=== PATIENT | female | born 1950 | race Caucasian/White ===

== ENCOUNTER 2022-12-11 06:19 | Inpatient (IN) | payer OTHER, SELFPAY ==
[2022-12-11] VITALS (7 sets, daily range): BP systolic 90–166; BP diastolic 35–67; PULSE 46–93; RESP 16–18; TEMP 36–37; O2SAT 91–99; BMI 25.1
--- NOTE | ~2022-12-11 | XR_ITS ---
EXAMINATION: XR CHEST CLINICAL INFORMATION: Recent pneumonia COMPARISON: None available. TECHNIQUE: 2 views of the chest were obtained. FINDINGS: Heart size normal. No infiltrates, effusions or lung masses are seen. Degenerative changes are present in both shoulders as well as the spine. Old healed right-sided rib fractures are seen involving ribs 4 through 6. XR/XR chest 2V IMPRESSION: No acute intrathoracic disease. Old healed right-sided rib fractures.
--- NOTE | 2022-12-11 06:31 | MHC.EDTECH ---
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
[2022-12-11 06:32] LABS: Glucose, Whole Blood 574 mg/dL (60-115)
[2022-12-11] MEDS: 0.9 % Sodium Chloride 1,000 ML 999 ML IV ×2 (07:14→08:52)
--- NOTE | 2022-12-11 07:32 | ED_ITS ---
HPI - General Adult General Chief complaint: Dizziness Stated complaint: Dizziness, Headache, Vomiting Time Seen by Provider: 12/11/22 07:23 Source: patient and family Mode of arrival: ambulatory Limitations: language barrier History of Present Illness HPI narrative: HIstory by daughter. Recent admission and visit to [facility], 1 week out from DKA, pneumonia and UTI now with weakness, dizziness and sugars running over 500. Onset (ago): day(s) Severity: moderate Related Data Allergies Allergy/AdvReac Type Severity Reaction Status Date / Time No Known Allergies Allergy Verified 12/11/22 06:28 Review of Systems Review of Systems: Yes all other systems are reviewed and are negative Constitutional: Constitutional: Reports body ache(s), Reports fatigue and Reports lethargy Psychiatric: Comments: headache Endocrine: Endocrine: Reports fatigue [facility] Social History Social History Alcohol intake: never Smoked in Last 30 Days: No Use of substances other than those prescribed or required for medical reasons: No Advance Directives: No Advance Directives Information Provided: Yes Physical Exam ED Vital Signs: Vital Signs - 24 hr 12/11/22 06:24 12/11/22 10:16 12/11/22 10:19 Temperature 98.1 F 97.1 F Pulse Rate 54 55 50 Respiratory Rate 16 16 16 Blood Pressure 111/61 105/55 L 90/42 L Pulse Oximetry 98 99 91 L Oxygen Delivery Method Room Air Room Air Room Air Oxygen Flow Rate 12/11/22 12:01 Temperature Pulse Rate 46 L Respiratory Rate 16 Blood Pressure 101/35 L Pulse Oximetry Oxygen Delivery Method Nasal Cannula Oxygen Flow Rate 1 BMI result Body Mass Index 25.1 Const Other: frail elderly female Orientation/consciousness: oriented to person and patient oriented x3 Limitations: no limitations HENMT Head: Yes normal to inspection Ears: external ears normal General nose exam: Normal external nose present Mouth: Normal oral and palatal mucosa present and oropharynx normal Throat: Yes posterior oropharynx normal Eyes General: appearance normal, both eyes and all related structures Neck Neck: Yes normal visual inspection Chest Chest palpation & inspection: normal inspection of the chest Resp Auscultation: clear to auscultation bilaterally Cardio Jugular venous distension: no JVD Rate: regular rate Rhythm: regular rhythm Heart sounds: S1 normal heart sound present and S2 normal heart sound present GI Inspection: Yes normal to inspection Palpation (GI): Soft to palpation, nontender and No hepatosplenomegaly present Auscultation: normal bowel sounds General: Yes no CVA tenderness Back/Spine/Pelvis Back: no CVA tenderness Skin Other: old ecchymosis to arms and legs Neuro General: oriented to person and patient oriented x3 Cranial nerves: Yes CN's II-XII intact bilaterally Motor exam (neuro): 5/5 motor strength present throughout Extrem General: Yes normal to inspection Psych Appearance: grossly normal Course Reevaluation(s) Reevaluation #1: Patient with improved sugar and potassium will admit Time: 12:35 Reevaluation #2: I spent 40 minutes of critical care, with interventions, assessments, speaking to patient, consultants, and family. Time: 12:38 Medications Administered Generic Name Dose Route Start Last Admin Trade Name Freq PRN Reason Stop Dose Admin Insulin Human Regular 100 unit in 100 mls @ 5 mls/hr 12/11/22 08:30 12/11/22 11:06 Myxredlin IVCONT 1.87 unit/hr .Q20H DPITI 1.87 mls/hr Titration Protocol 5 UNIT/HR Discontinued Medications Generic Name Dose Route Start Last Admin Trade Name Freq PRN Reason Stop Dose Admin Sodium Chloride 1,000 mls @ 999 mls/hr 12/11/22 07:00 12/11/22 08:42 Ns IV 12/11/22 08:00 Infused .Q1H1M DIPTI Infusion Sodium Chloride 1,000 mls @ 999 mls/hr 12/11/22 07:00 12/11/22 09:48 Ns IV 12/11/22 08:00 Infused .Q1H1M DIPTI Infusion Insulin Human Regular 100 unit in 100 mls @ 5 mls/hr 12/11/22 07:45 12/11/22 08:27 Myxredlin IVCONT Not Given .Q20H DIPTI Protocol Insulin Human Regular 5 unit 12/11/22 07:35 12/11/22 08:27 Insulin Regular, Human 100 Unit/Ml 3 Ml Vial IVPUSH 12/11/22 07:36 5 unit ONCE ONE Administration Medical Decision Making Differential Diagnosis Differential Diagnoses: The differential diagnosis associated with the presentation includes (DKA, hyperosmolar hyperglycemia, pneumonia, UTI were considered) Admission/Observation Consideration of admission/observation: Escalation of care including admission/observation considered (upon arrival this patient with recent DKA and pneumonia was considered for admission) Consult Healthcare Provider Management of the patient was discussed with: Hospitalist (dr Haney) Lab Data MDM Lab Attestation statement: I reviewed the patient's lab results. (hyperkalemia, renal failure, and hyperglucemia were all noted and treated ve nous PH patient not acidotic, bicarbonate low) 12/11/22 08:12 12/11/22 08:12 Labs: Lab Results 12/11/22 12/11/22 12/11/22 Range/Units 06:28 07:58 08:12 WBC 8.6 (4.8-10.8) X10*3/uL RBC 3.14 L (4.20-5.50) X10*6/uL Hgb 9.2 L (12.0-16.0) g/dl Hct 28.9 L (37.0-47.0) % MCV 92.0 (80.0-98.0) fL MCH 29.3 (27.0-33.0) pg MCHC 31.8 (31.0-35.0) g/dl RDW 15.1 (11.0-16.0) % Plt Count 171 (160-400) X10*3/uL MPV 11.3 (9.4-12.3) fL Immature Gran % (Auto) 0.5 H (0.0-0.4) % Neut % (Auto) 75.7 H (45-73) % Lymph % (Auto) 17.2 L (20-40) % [place] % (Auto) 6.4 (2-11) % Eos % (Auto) 0.0 (0-4) % Baso % (Auto) 0.2 (0-2) % Lymph # (Auto) 1.5 (1.2-4.9) X10*3/uL [place] # (Auto) 0.6 (0.1-1.2) X10*3/uL Eos # (Auto) 0.0 (0.0-0.4) X10*3/uL Baso # (Auto) 0.0 (0.0-0.2) X10*3/uL Abs Immat Gran (auto) 0.04 H (0.00-0.03) X10*3/uL Absolute Neuts (auto) 6.5 (2.0-8.3) x10*3/uL Absolute Nucleated RBC 0.000 (0.0-0.012) X10*3/uL Nucleated RBC % (auto) 0.0 (0.0-0.2) /100WBC VBG pH (7.32-7.43) VBG pCO2 mmHg VBG pO2 mmHg VBG HCO3 (22-26) mmol/L VBG O2 Saturation % VBG Base Excess mmol/L Sodium (135-145) mmol/L Potassium (3.3-5.1) mmol/L Chloride (96-108) mmol/L Carbon Dioxide (22-29) mmol/L Anion Gap (12-20) BUN (9-16) mg/dL Creatinine (0.5-1.4) mg/dL Estim Creat Clear Calc Estimated GFR POC Glucose 574 H* (60-115) mg/dL Random Glucose (60-115) mg/dL Calcium (8.4-10.2) mg/dL Magnesium (1.6-2.6) mg/dL Total Bilirubin (0.0-1.0) mg/dL AST (5-31) U/L ALT (0-31) U/L Alkaline Phosphatase (39-117) U/L Total Protein (6.5-8.0) g/dL Albumin (3.5-5.0) g/dL Beta-Hydroxybutyrate (0.02-0.27) mmol/L COVID-19 (RUDY) Negative (Negative) COVID-19 Clin Com See Note 12/11/22 12/11/22 12/11/22 Range/Units 08:12 08:16 08:53 WBC (4.8-10.8) X10*3/uL RBC (4.20-5.50) X10*6/uL Hgb (12.0-16.0) g/dl Hct (37.0-47.0) % MCV (80.0-98.0) fL MCH (27.0-33.0) pg MCHC (31.0-35.0) g/dl RDW (11.0-16.0) % Plt Count (160-400) X10*3/uL MPV (9.4-12.3) fL Immature Gran % (Auto) (0.0-0.4) % Neut % (Auto) (45-73) % Lymph % (Auto) (20-40) % [place] % (Auto) (2-11) % Eos % (Auto) (0-4) % Baso % (Auto) (0-2) % Lymph # (Auto) (1.2-4.9) X10*3/uL [place] # (Auto) (0.1-1.2) X10*3/uL Eos # (Auto) (0.0-0.4) X10*3/uL Baso # (Auto) (0.0-0.2) X10*3/uL Abs Immat Gran (auto) (0.00-0.03) X10*3/uL Absolute Neuts (auto) (2.0-8.3) x10*3/uL Absolute Nucleated RBC (0.0-0.012) X10*3/uL Nucleated RBC % (auto) (0.0-0.2) /100WBC VBG pH 7.39 (7.32-7.43) VBG pCO2 30 mmHg VBG pO2 37 mmHg VBG HCO3 19 L (22-26) mmol/L VBG O2 Saturation 60.0 % VBG Base Excess -4.7 mmol/L Sodium 131 L (135-145) mmol/L Potassium 7.1 H* (3.3-5.1) mmol/L Chloride 101 (96-108) mmol/L Carbon Dioxide 20 L (22-29) mmol/L Anion Gap 17 (12-20) BUN 74 H (9-16) mg/dL Creatinine 3.34 H (0.5-1.4) mg/dL Estim Creat Clear Calc 10.8 Estimated GFR 13 POC Glucose 481 H* (60-115) mg/dL Random Glucose 587 H* (60-115) mg/dL Calcium 9.0 (8.4-10.2) mg/dL Magnesium 2.2 (1.6-2.6) mg/dL Total Bilirubin 0.3 (0.0-1.0) mg/dL AST 173 H (5-31) U/L ALT 124 H (0-31) U/L Alkaline Phosphatase 140 H (39-117) U/L Total Protein 7.4 (6.5-8.0) g/dL Albumin 3.5 (3.5-5.0) g/dL Beta-Hydroxybutyrate 0.21 (0.02-0.27) mmol/L COVID-19 (RUDY) (Negative) COVID-19 Clin Com 12/11/22 12/11/22 12/11/22 Range/Units 10:18 10:39 10:58 WBC (4.8-10.8) X10*3/uL RBC (4.20-5.50) X10*6/uL Hgb (12.0-16.0) g/dl Hct (37.0-47.0) % MCV (80.0-98.0) fL MCH (27.0-33.0) pg MCHC (31.0-35.0) g/dl RDW (11.0-16.0) % Plt Count (160-400) X10*3/uL MPV (9.4-12.3) fL Immature Gran % (Auto) (0.0-0.4) % Neut % (Auto) (45-73) % Lymph % (Auto) (20-40) % [place] % (Auto) (2-11) % Eos % (Auto) (0-4) % Baso % (Auto) (0-2) % Lymph # (Auto) (1.2-4.9) X10*3/uL [place] # (Auto) (0.1-1.2) X10*3/uL Eos # (Auto) (0.0-0.4) X10*3/uL Baso # (Auto) (0.0-0.2) X10*3/uL Abs Immat Gran (auto) (0.00-0.03) X10*3/uL Absolute Neuts (auto) (2.0-8.3) x10*3/uL Absolute Nucleated RBC (0.0-0.012) X10*3/uL Nucleated RBC % (auto) (0.0-0.2) /100WBC VBG pH (7.32-7.43) VBG pCO2 mmHg VBG pO2 mmHg VBG HCO3 (22-26) mmol/L VBG O2 Saturation % VBG Base Excess mmol/L Sodium 140 (135-145) mmol/L Potassium 5.8 H (3.3-5.1) mmol/L Chloride 109 H (96-108) mmol/L Carbon Dioxide 22 (22-29) mmol/L Anion Gap 15 (12-20) BUN 69 H (9-16) mg/dL Creatinine 3.09 H (0.5-1.4) mg/dL Estim Creat Clear Calc 11.6 Estimated GFR 15 POC Glucose 285 H 242 H (60-115) mg/dL Random Glucose 285 H (60-115) mg/dL Calcium 8.9 (8.4-10.2) mg/dL Magnesium (1.6-2.6) mg/dL Total Bilirubin (0.0-1.0) mg/dL AST (5-31) U/L ALT (0-31) U/L Alkaline Phosphatase (39-117) U/L Total Protein (6.5-8.0) g/dL Albumin (3.5-5.0) g/dL Beta-Hydroxybutyrate (0.02-0.27) mmol/L COVID-19 (RUDY) (Negative) COVID-19 Clin Com 12/11/22 Range/Units 12:00 WBC (4.8-10.8) X10*3/uL RBC (4.20-5.50) X10*6/uL Hgb (12.0-16.0) g/dl Hct (37.0-47.0) % MCV (80.0-98.0) fL MCH (27.0-33.0) pg MCHC (31.0-35.0) g/dl RDW (11.0-16.0) % Plt Count (160-400) X10*3/uL MPV (9.4-12.3) fL Immature Gran % (Auto) (0.0-0.4) % Neut % (Auto) (45-73) % Lymph % (Auto) (20-40) % [place] % (Auto) (2-11) % Eos % (Auto) (0-4) % Baso % (Auto) (0-2) % Lymph # (Auto) (1.2-4.9) X10*3/uL [place] # (Auto) (0.1-1.2) X10*3/uL Eos # (Auto) (0.0-0.4) X10*3/uL Baso # (Auto) (0.0-0.2) X10*3/uL Abs Immat Gran (auto) (0.00-0.03) X10*3/uL Absolute Neuts (auto) (2.0-8.3) x10*3/uL Absolute Nucleated RBC (0.0-0.012) X10*3/uL Nucleated RBC % (auto) (0.0-0.2) /100WBC VBG pH (7.32-7.43) VBG pCO2 mmHg VBG pO2 mmHg VBG HCO3 (22-26) mmol/L VBG O2 Saturation % VBG Base Excess mmol/L Sodium (135-145) mmol/L Potassium (3.3-5.1) mmol/L Chloride (96-108) mmol/L Carbon Dioxide (22-29) mmol/L Anion Gap (12-20) BUN (9-16) mg/dL Creatinine (0.5-1.4) mg/dL Estim Creat Clear Calc Estimated GFR POC Glucose 205 H (60-115) mg/dL Random Glucose (60-115) mg/dL Calcium (8.4-10.2) mg/dL Magnesium (1.6-2.6) mg/dL Total Bilirubin (0.0-1.0) mg/dL AST (5-31) U/L ALT (0-31) U/L Alkaline Phosphatase (39-117) U/L Total Protein (6.5-8.0) g/dL Albumin (3.5-5.0) g/dL Beta-Hydroxybutyrate (0.02-0.27) mmol/L COVID-19 (RUDY) (Negative) COVID-19 Clin Com Independent Interpretation I performed an independent interpretation of an: EKG (sinus 50, no peaked twaves consistent hyperkalemia) and Plain X-Ray (CXR no pneumonia) Independent Historian Clinical information obtained from an independent historian. History obtained from or confirmed by: Other (daughter) External Record Review External record reviewed: Other (discharge summary from [facility]) Chronic Conditions Patient?s care impacted by: Diabetes, Hypertension and Other (renal insufficiency) Discharge Plan Discharge Clinical Impression: Acute hyperglycemia, Acute renal failure, Acute hyperkalemia Patient Disposition: Admitted As Inpatient
[2022-12-11 08:16] LABS: COVID-19 Test Negative (Negative); IDNOW Serial# BCCEAD1C
[2022-12-11 08:19] LABS: MANUAL DIFF FLAG NO
[2022-12-11 08:20] LABS: Venous Blood Gas Refer to POC result
[2022-12-11 08:21] LABS: Basophils Percent Auto 0.2 % (0-2); Hematocrit 28.9 % (37.0-47.0); Hemoglobin 9.2 g/dl (12.0-16.0); Imm Gran Abs Auto 0.04 X10*3/uL (0.00-0.03); Imm Gran Pct Auto 0.5 % (0.0-0.4); Lymphocytes Absolute Auto 1.5 X10*3/uL (1.2-4.9); Lymphocytes Percent Auto 17.2 % (20-40); Mean Corpuscular HGB Conc 31.8 g/dl (31.0-35.0); Mean Corpuscular Hemoglobin 29.3 pg (27.0-33.0); Mean Platelet Volume 11.3 fL (9.4-12.3); Monocytes Absolute Auto 0.6 X10*3/uL (0.1-1.2); Monocytes Percent Auto 6.4 % (2-11); Neutrophils Absolute Auto 6.5 x10*3/uL (2.0-8.3); Neutrophils Percent Auto 75.7 % (45-73); Platelet Count 171 X10*3/uL (160-400); Red Blood Count 3.14 X10*6/uL (4.20-5.50); Red Cell Distribution Width 15.1 % (11.0-16.0); White Blood Count 8.6 X10*3/uL (4.8-10.8)
[2022-12-11 08:23] LABS: VBG Base Excess -4.7 mmol/L; VBG HCO3 19 mmol/L (22-26); VBG pCO2 30 mmHg; VBG pH 7.39 (7.32-7.43); VBG pO2 37 mmHg
[2022-12-11] MEDS: Insulin Regular, Human 100 UNIT/ML 3 ML VIAL IVPUSH (08:27)
[2022-12-11 08:37] LABS: Beta-Hydroxybutyrate 0.21 mmol/L (0.02-0.27)
[2022-12-11] MEDS: Insulin Regular/NS 100 UNIT/100 ML PLAST..BAG IVCONT (08:37)
--- NOTE | 2022-12-11 08:40 | ECG_ITS ---
Test Reason : HYPERKALEMIA Blood Pressure : / mmHG Vent. Rate : 050 BPM Atrial Rate : 000 BPM P-R Int : 000 ms QRS Dur : 074 ms QT Int : 498 ms P-R-T Axes : 000 013 047 degrees QTc Int : 454 ms Junctional rhythm Abnormal ECG No previous ECGs available Referred By: Abdias Henley Electronically Signed By:Tam Vasquez
[2022-12-11 08:42] LABS: Alanine Aminotransferase 124 U/L (0-31); Albumin Level 3.5 g/dL (3.5-5.0); Alkaline Phosphatase 140 U/L (39-117); Anion Gap 17 (12-20); Aspartate Amino Transferase 173 U/L (5-31); Bilirubin Total 0.3 mg/dL (0.0-1.0); Blood Urea Nitrogen 74 mg/dL (9-16); Carbon Dioxide 20 mmol/L (22-29); Chloride 101 mmol/L (96-108); Creatinine Clr Calc Pharmacy 10.8; Estimated Glomerular Filt Rate 13; Glucose Random 587 mg/dL (60-115); Magnesium 2.2 mg/dL (1.6-2.6); Potassium 7.1 mmol/L (3.3-5.1); Sodium 131 mmol/L (135-145); Total Protein 7.4 g/dL (6.5-8.0)
[2022-12-11 08:56] LABS: Glucose, Whole Blood 481 mg/dL (60-115)
[2022-12-11 10:26] LABS: Glucose, Whole Blood 285 mg/dL (60-115)
--- NOTE | 2022-12-11 10:33 | PC.NURSE ---
Dr rodriguez aware of drop in blood glucose. Per MD keep pt on 1.25u/hr of insulin until she is transitioned to SC insulin.
--- NOTE | 2022-12-11 10:36 | PC.NURSE ---
O2 sat consistent around 88-91%, placed on 2L NC. repositioned for comfort, head elevated.
[2022-12-11 11:01] LABS: Anion Gap 15 (12-20); Blood Urea Nitrogen 69 mg/dL (9-16); Calcium 8.9 mg/dL (8.4-10.2); Carbon Dioxide 22 mmol/L (22-29); Chloride 109 mmol/L (96-108); Creatinine Clr Calc Pharmacy 11.6; Estimated Glomerular Filt Rate 15; Glucose Random 285 mg/dL (60-115); Potassium 5.8 mmol/L (3.3-5.1); Sodium 140 mmol/L (135-145)
[2022-12-11 11:02] LABS: Glucose, Whole Blood 242 mg/dL (60-115)
[2022-12-11 12:06] LABS: Glucose, Whole Blood 205 mg/dL (60-115)
--- NOTE | 2022-12-11 12:09 | PC.NURSE ---
Per Dr Henley continue IV insulin at current rate, will advance to SC. do not titrate at this time.
--- NOTE | 2022-12-11 12:46 | PHA.MEDREC ---
Pharmacy Consult ? Medication Reconciliation Pharmacy has completed the medication reconciliation. Patients daughters were at bedside
[2022-12-11] MEDS: Insulin Glargine,Hum.rec.anlog 100 UNIT/ML 10 ML VIAL 10 UNIT SUBCUT (12:49)
[2022-12-11] MEDS: Heparin Sodium,Porcine 5,000 UNIT/ML VIAL 5000 UNIT SUBCUT (15:14)
--- NOTE | 2022-12-11 15:35 | PM.EVENT ---
Event Note Date of Service: 12/11/22 Event Note: Addendum to history and physical by the advanced practice provider, Chau BATISTA I interviewed and examined the patient. I discussed their presentation and management with the SONU. 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 Pt on verapamil. Plan admit to [facility], give basal/bolus inslin, hold MTF given ILYA, give IV fluid hydration + Lokelma, recheck BMP in AM, hold verapail + consult Cardiology. Time Spent With Patient Time: Total time managing care of this patient today ____ minutes.
[2022-12-11 15:37] LABS: Appearance Urine Clear; Color Urine Yellow; Glucose Urine UA 250 mg/dL (Negative); Leukocyte Esterase Urine Negative (Negative); Nitrite Urine Negative (Negative); PH 5.5 (5.0-9.0); Specific Gravity - Urine 1.015 (1.005-1.025); UMIC TRIGGER UACC YES; Urine Blood Negative (Negative); Urine Ketones Negative (Negative); Urine Protein 30 (1+) mg/dL (Neg-Trace)
--- NOTE | 2022-12-11 15:46 | PM.IMHP ---
History of Present Illness Date of Service: 12/11/22 Attending physician on admission: Ileana Avila Chief Complaint: n/v, hyperglycemia 72-year-old female with history of CKD, hypertension, hyperlipidemia, history of CVA with sequela left-sided hemiparesis, insulin-dependent type 2 diabetes, nonproliferative diabetic retinopathy, CHANEL noncompliant with CPAP, and osteopenia presented to the ED earlier today with her daughter, Kim, for evaluation of hyperglycemia, nausea, and vomiting. Per the patient's daughter who provides most of the history, the patient was recently admitted at [facility] for hyperosmolar hyperglycemic state, hemoglobin A1c found to be 12.1% treated with insulin drip and transitioned to an discharged on Lantus 10 units and NovoLog on sliding scale. While admitted, she was also found to have UTI and community-acquired pneumonia and was discharged with cefpodoxime and azithromycin. According to her daughter, the patient is under the care of the patient's granddaughter during the day and has been compliant with diabetic diet as well as metformin but it is not clear if the patient has been taking insulin as she was discharged on. Yesterday, the patient began feeling generally unwell and was found lying in bed nauseous and did vomit early this morning. Last night glucose was 480 and her daughter reports they brought her to [facility] ED but the patient was not seen so they left. This morning the patient was feeling worse and glucose was around 500 so they presented to the ED. On arrival, vital stable the patient did develop bradycardia in the low 40s with EKG showing junctional rhythm, no T-wave abnormality. Upon questioning, the patient reports that the patient has some cardiac arrhythmia but she is unsure of the type as it was diagnosed in [place] though she does take ?medication? for this. There is no leukocytosis. She has a stable normocytic anemia, consistent with baseline. Initial creatinine 3.34, BUN 74, sodium 131, potassium 7.1, CO2 20, anion gap closed at 17, glucose 587. Beta hydroxybutyrate within normal limits. VBG with normal ph. Patient started insulin drip per protocol, and given 2 L IV NS. Chemistries were repeated with improvement in sodium to 140, potassium 5.8, chloride 109, BUN 69, creatinine 3.09, glucose 285. Patient was given 10 units Lantus and weaned from insulin drip. Glucose on admission is 205. Of note, on discharge from [facility] creat was 2.9, but baseline on appears to be around 1.9). UA with +glucose, 1+ protein, otherwise unremarkable. . Review of Systems Review of Systems: General: No fevers, malaise, unintentional weight loss HEENT: No blurred vision, diplopia. Cardiovascular: No chest pain, palpitations, or leg edema Respiratory: No shortness of breath, wheezing, cough GI: +n/v. No abdominal pain, diarrhea, constipation, melena, hematochezia : No dysuria, hematuria, increased urinary frequency, decreased urinary output MSK: No myalgia, +back pain Neuro: No headaches, weakness, paresthesias Skin: No rashes or lesions [facility] Medical History CKD (chronic kidney disease), stage III Hemiparesis affecting left side as late effect of cerebrovascular accident History of CVA (cerebrovascular accident) Hyperlipidemia Hyperosmolar hyperglycemic state (HHS) Hypertension Insulin dependent type 2 diabetes mellitus Nonproliferative diabetic retinopathy CHANEL (obstructive sleep apnea) Osteopenia Social History Alcohol intake: never Smoked in Last 30 Days: No Use of substances other than those prescribed or required for medical reasons: No Advance Directives: No Advance Directives Information Provided: Yes Meds Allergies Allergy/AdvReac Type Severity Reaction Status Date / Time No Known Allergies Allergy Verified 12/11/22 06:28 Active Medications: Current Medications Acetaminophen (Acetaminophen 325 Mg Tablet) 650 mg PO Q6H PRN PRN Reason: Pain, Mild (Pain Scale 1-3) Aspirin (Aspirin Enteric Coated 81 Mg Tablet.Dr) 81 mg PO DAILY DIPTI Atorvastatin Calcium (Atorvastatin Calcium 20 Mg Tablet) 20 mg PO DAILY DIPTI Cefuroxime Axetil (Cefuroxime Axetil 500 Mg Tablet) 500 mg PO BID [facility] Dextrose (Dextrose 50 % 25 Gm/50 Ml Syringe) 25 gm IVPUSH Q15M PRN; Protocol PRN Reason: per Hypoglycemia Standing Ord. Docusate Sodium (Docusate Sodium 100 Mg Capsule) 100 mg PO DAILY PRN PRN Reason: Constipation Furosemide (Furosemide 20 Mg Tablet) 20 mg PO DAILY [facility]; Protocol Glucose (Glucose Gel 15 Gm Gel..Gram.) 15 gm PO Q15M PRN; Protocol PRN Reason: per Hypoglycemia Standing Ord. Heparin Sodium (Porcine) (Heparin Sodium,Porcine 5,000 Unit/Ml Vial) 5,000 unit SUBCUT Q12H [facility] Last Admin: 12/11/22 15:14 Dose: 5,000 unit Insulin Glargine (Insulin Glargine,Hum.Rec.Anlog 100 Unit/Ml 10 Ml Vial) 10 unit SUBCUT DAILY [facility] Insulin Human Lispro (Insulin Lispro 100 Unit/Ml 3 Ml Vial) 0 unit SUBCUT QIDACHS [facility]; Protocol Ondansetron HCl (Ondansetron Hcl 4 Mg/2 Ml Vial) 4 mg IVPUSH Q8H PRN PRN Reason: Nausea and Vomiting Pharmacy Consult (Consult Rx Perform Med Rec) 1 each MISCELLANE ONCE PRN PRN Reason: Consult order Sodium Chloride (0.9 % Sodium Chloride Flush 3 Ml Syringe) 3 ml IVFLUSH QSHIFT [facility] Last Admin: 12/11/22 15:17 Dose: Not Given Verapamil HCl (Verapamil Hcl Sr 240 Mg Tablet.Er) 240 mg PO DAILY [facility]; Protocol Home Medications Medication Instructions Recorded Confirmed Last Taken Type aspirin 81 mg tablet,delayed 81 mg PO DAILY 12/11/22 12/11/22 Unknown History release atorvastatin 20 mg tablet 20 mg PO DAILY 12/11/22 12/11/22 Unknown History cefpodoxime 200 mg tablet 200 mg PO Q12H 12/11/22 12/11/22 Unknown History furosemide 20 mg tablet 20 mg PO DAILY 12/11/22 12/11/22 Unknown History insulin aspart U-100 100 unit/mL 5 unit subcut TID 12/11/22 12/11/22 Unknown History (3 mL) subcutaneous pen (Novolog FlexPen U-100 Insulin aspart) insulin glargine 100 unit/mL (3 10 unit subcut DAILY 12/11/22 12/11/22 Unknown History mL) subcutaneous pen (Lantus Solostar U-100 Insulin) losartan 25 mg tablet 25 mg PO DAILY 12/11/22 12/11/22 Unknown History metformin 500 mg tablet,extended 500 mg PO DAILY 12/11/22 12/11/22 Unknown History release 24 hr verapamil 240 mg 24 hr 240 mg PO DAILY 12/11/22 12/11/22 Unknown History capsule,extended release Physical Exam Vital Signs and Narrative: Vital Signs: Last Vital Signs Temp 97.1 F 12/11/22 10:16 Pulse 46 L 12/11/22 12:01 Resp 16 12/11/22 12:01 BP 101/35 L 12/11/22 12:01 Pulse Ox 91 L 12/11/22 10:19 O2 Del Method Nasal Cannula 12/11/22 12:01 O2 Flow Rate 1 12/11/22 12:01 BMI result Body Mass Index 25.1 Constitutional - Awake and Alert, No apparent distress Eyes - PERRLA, EOMI Cardiovascular - S1S2, RRR, No edema Respiratory - Normal lung expansion, Normal respiratory effort, No respiratory distress, CTA bilaterally Gastrointestinal - NT / ND; +BS; No rebound or guarding - No CVA tenderness Extremities - no calf tenderness bilaterally, no swelling Skin - Warm/Dry Neurological - Alert & oriented x3 Psychological - Appropriate affect Results Labs 12/11/22 08:12 12/11/22 10:39 Labs: Laboratory Results - last 24 hr 12/11/22 12/11/22 12/11/22 06:28 07:58 08:12 MCV 92.0 MCH 29.3 MCHC 31.8 RDW 15.1 Plt Count 171 MPV 11.3 Immature Gran % (Auto) 0.5 H Neut % (Auto) 75.7 H Lymph % (Auto) 17.2 L [place] % (Auto) 6.4 Eos % (Auto) 0.0 Baso % (Auto) 0.2 Lymph # (Auto) 1.5 [place] # (Auto) 0.6 Eos # (Auto) 0.0 Baso # (Auto) 0.0 Abs Immat Gran (auto) 0.04 H Absolute Neuts (auto) 6.5 Absolute Nucleated RBC 0.000 Nucleated RBC % (auto) 0.0 VBG pH VBG pCO2 VBG pO2 VBG HCO3 VBG O2 Saturation VBG Base Excess Anion Gap Estim Creat Clear Calc Estimated GFR POC Glucose 574 H* Random Glucose Calcium Magnesium Total Bilirubin AST ALT Alkaline Phosphatase Total Protein Albumin Beta-Hydroxybutyrate Urine Color Urine Appearance Urine pH Ur Specific [place] Urine Protein Urine Glucose (UA) Urine Ketones Urine Blood Urine Nitrite Ur Leukocyte Esterase COVID-19 (RUDY) Negative COVID-19 Clin Com See Note 12/11/22 12/11/22 12/11/22 08:12 08:16 08:53 MCV MCH MCHC RDW Plt Count MPV Immature Gran % (Auto) Neut % (Auto) Lymph % (Auto) [place] % (Auto) Eos % (Auto) Baso % (Auto) Lymph # (Auto) [place] # (Auto) Eos # (Auto) Baso # (Auto) Abs Immat Gran (auto) Absolute Neuts (auto) Absolute Nucleated RBC Nucleated RBC % (auto) VBG pH 7.39 VBG pCO2 30 VBG pO2 37 VBG HCO3 19 L VBG O2 Saturation 60.0 VBG Base Excess -4.7 Anion Gap 17 Estim Creat Clear Calc 10.8 Estimated GFR 13 POC Glucose 481 H* Random Glucose 587 H* Calcium 9.0 Magnesium 2.2 Total Bilirubin 0.3 AST 173 H ALT 124 H Alkaline Phosphatase 140 H Total Protein 7.4 Albumin 3.5 Beta-Hydroxybutyrate 0.21 Urine Color Urine Appearance Urine pH Ur Specific [place] Urine Protein Urine Glucose (UA) Urine Ketones Urine Blood Urine Nitrite Ur Leukocyte Esterase COVID-19 (RUDY) COVID-hCentive 12/11/22 12/11/22 12/11/22 10:18 10:39 10:58 MCV MCH MCHC RDW Plt Count MPV Immature Gran % (Auto) Neut % (Auto) Lymph % (Auto) [place] % (Auto) Eos % (Auto) Baso % (Auto) Lymph # (Auto) [place] # (Auto) Eos # (Auto) Baso # (Auto) Abs Immat Gran (auto) Absolute Neuts (auto) Absolute Nucleated RBC Nucleated RBC % (auto) VBG pH VBG pCO2 VBG pO2 VBG HCO3 VBG O2 Saturation VBG Base Excess Anion Gap 15 Estim Creat Clear Calc 11.6 Estimated GFR 15 POC Glucose 285 H 242 H Random Glucose 285 H Calcium 8.9 Magnesium Total Bilirubin AST ALT Alkaline Phosphatase Total Protein Albumin Beta-Hydroxybutyrate Urine Color Urine Appearance Urine pH Ur Specific [place] Urine Protein Urine Glucose (UA) Urine Ketones Urine Blood Urine Nitrite Ur Leukocyte Esterase COVID-19 (RUDY) COVID-hCentive 12/11/22 12/11/22 12:00 15:26 MCV MCH MCHC RDW Plt Count MPV Immature Gran % (Auto) Neut % (Auto) Lymph % (Auto) [place] % (Auto) Eos % (Auto) Baso % (Auto) Lymph # (Auto) [place] # (Auto) Eos # (Auto) Baso # (Auto) Abs Immat Gran (auto) Absolute Neuts (auto) Absolute Nucleated RBC Nucleated RBC % (auto) VBG pH VBG pCO2 VBG pO2 VBG HCO3 VBG O2 Saturation VBG Base Excess Anion Gap Estim Creat Clear Calc Estimated GFR POC Glucose 205 H Random Glucose Calcium Magnesium Total Bilirubin AST ALT Alkaline Phosphatase Total Protein Albumin Beta-Hydroxybutyrate Urine Color Yellow Urine Appearance Clear Urine pH 5.5 Ur Specific [place] 1.015 Urine Protein 30 (1+) H Urine Glucose (UA) 250 H Urine Ketones Negative Urine Blood Negative Urine Nitrite Negative Ur Leukocyte Esterase Negative COVID-19 (RUDY) COVID-19 Clin Com Imaging Radiologist's Impressions: Impressions Chest X-Ray 12/11/22 08:23 IMPRESSION: No acute intrathoracic disease. Old healed right-sided rib fractures. Assessment and Plan (1) Hyperosmolar hyperglycemic state (HHS): Status: Acute (2) Acute hyperkalemia: Status: Acute (3) Acute renal failure: Status: Acute Plan 72-year-old female with history of CKD, hypertension, hyperlipidemia, history of CVA with sequela left-sided hemiparesis, insulin-dependent type 2 diabetes, nonproliferative diabetic retinopathy, CHANEL noncompliant with CPAP, and osteopenia admitted for HHS with ILYA and hyperkalemia. # hyperosmolar hyperglycemic state -likely r/t medication noncompliance for T2Dm management -Hgb A1c 12.1% with recent d/c from [facility] for HHS on 12/03 -Glucose on arrival >560. No acidosis on VBG, AG closed. -Weaned from insulin drip and given lantus 10 untis -Continue lantus 10units daily -Humalog on SSI -Diabetic diet -POC glucose -hold metformin #Acute kidney Injury- pre renal -Baseline CKD stage 3 vs 4 at baseline -likely related to dehydration from hyperglycemia/HHS -Creat 3.09, baseline around 1.9 -Continue IV NS -Avoid nephrotoxins -Follow BMP #Acute hyperkalemia -r/t above -On arrival 7.1, improved to 5.8 with IV insulin and IVF. No EKG changes -Give lokelma 10mg -Hold losartan -Follow BMP -Monitor on telemetry #Junctional rhythm with bradycardia -HR in 40s on exam, now 80 -Vague cardiac history diagnosed in [place], diagnosis unclear -Hold verapamil -monitor on telemetry -cardiac consult # pseudo hyponatremia-resolved -related to hyperglycemia # hypertension -hold verapamil and losartan due to above # CHANEL -not on CPAP # UTI -diagnosed at [facility], urine culture appears contaminated -complete additional 4 doses cefuroxime then discontinue DVT prophylaxis-heparin Full code Patient requires inpatient stay at least 2 midnights for management of HHS weaned from insulin drip with acute kidney injury and hyperkalemia requiring IV fluid resuscitation, close monitoring of electrolytes and renal function as well as cardiac monitoring Time Spent With Patient Time: Total time managing care of this patient today ____ minutes. Quality Stroke Does the patient have a stroke diagnosis?: No VTE Prior VTE?: No VTE Risk Level:: Medical - moderate - high VTE Device Contraindication: Treatment Not Indicated VTE Drug Contraindication: N/A - Med Ordered
[2022-12-11 15:53] LABS: Bacteria Urine None Seen (None Seen); Hyaline Casts Urine 0-2 /LPF (0-2); RBC Urine 0-2 /HPF (0-2); Squamous Epithelial Cell Urine 0-2 /HPF (0-2); WBC Urine 0-5 /HPF (0-5)
--- NOTE | 2022-12-11 16:31 | PC.NURSE ---
Report to PHOENIX Wheatley
[2022-12-11 16:48] LABS: Glucose, Whole Blood 262 mg/dL (60-115)
[2022-12-11] MEDS: Sodium Zirconium Cyclosilicate 10 GM POWD.PACK PO (16:54)
[2022-12-11] MEDS: Insulin Lispro 100 UNIT/ML 3 ML VIAL SUBCUT (16:55)
[2022-12-11] MEDS: 0.9 % Sodium Chloride 1,000 ML 100 ML IVCONT (16:57)
[2022-12-11 17:36] LABS: Glucose, Whole Blood 213 mg/dL (60-115)
[2022-12-11 20:17] LABS: Glucose, Whole Blood 71 mg/dL (60-115)
[2022-12-11 22:51] LABS: Carbon Dioxide 21 mmol/L (22-29)
[2022-12-11 22:59] LABS: Blood Urea Nitrogen 66 mg/dL (9-16); Calcium 9.6 mg/dL (8.4-10.2); Chloride 110 mmol/L (96-108); Creatinine Clr Calc Pharmacy 13.6; Estimated Glomerular Filt Rate 18; Glucose Random 135 mg/dL (60-115); Potassium 4.8 mmol/L (3.3-5.1); Sodium 143 mmol/L (135-145)
[2022-12-12 01:12] LABS: Glucose, Whole Blood 162 mg/dL (60-115)
[2022-12-12] MEDS: Heparin Sodium,Porcine 5,000 UNIT/ML VIAL 5000 UNIT SUBCUT ×2 (02:19→14:15)
[2022-12-12] MEDS: 0.9 % Sodium Chloride 1,000 ML 100 ML IVCONT ×2 (02:19→12:09)
[2022-12-12 03:23] VITALS: BP 142/70; PULSE 80; RESP 15; TEMP 36.3; O2SAT 94
[2022-12-12 07:10] LABS: MANUAL DIFF FLAG NO
[2022-12-12 07:13] LABS: Basophils Percent Auto 0.3 % (0-2); Eosinophils Absolute Auto 0.2 X10*3/uL (0.0-0.4); Eosinophils Percent Auto 2.5 % (0-4); Hemoglobin 9.6 g/dl (12.0-16.0); Imm Gran Abs Auto 0.02 X10*3/uL (0.00-0.03); Imm Gran Pct Auto 0.3 % (0.0-0.4); Lymphocytes Absolute Auto 2.5 X10*3/uL (1.2-4.9); Lymphocytes Percent Auto 31.5 % (20-40); Mean Corpuscular Hemoglobin 28.7 pg (27.0-33.0); Mean Corpuscular Volume 89.8 fL (80.0-98.0); Mean Platelet Volume 10.9 fL (9.4-12.3); Monocytes Absolute Auto 0.4 X10*3/uL (0.1-1.2); Monocytes Percent Auto 5.6 % (2-11); Neutrophils Absolute Auto 4.7 x10*3/uL (2.0-8.3); Neutrophils Percent Auto 59.8 % (45-73); Platelet Count 170 X10*3/uL (160-400); Red Blood Count 3.34 X10*6/uL (4.20-5.50); Red Cell Distribution Width 14.8 % (11.0-16.0); White Blood Count 7.9 X10*3/uL (4.8-10.8)
[2022-12-12 07:26] VITALS: BP 148/80; PULSE 76; RESP 20; TEMP 37.2; O2SAT 94
[2022-12-12 07:26] LABS: Anion Gap 11 (12-20); Blood Urea Nitrogen 51 mg/dL (9-16); Calcium 9.3 mg/dL (8.4-10.2); Carbon Dioxide 26 mmol/L (22-29); Chloride 112 mmol/L (96-108); Creatinine Clr Calc Pharmacy 17.9; Estimated Glomerular Filt Rate 24; Glucose Random 111 mg/dL (60-115); Potassium 4.5 mmol/L (3.3-5.1); Sodium 144 mmol/L (135-145)
[2022-12-12 07:34] LABS: Glucose, Whole Blood 95 mg/dL (60-115)
[2022-12-12] MEDS: Insulin Glargine,Hum.rec.anlog 100 UNIT/ML 10 ML VIAL 10 UNIT SUBCUT (08:40)
[2022-12-12] MEDS: Atorvastatin Calcium 20 MG TABLET PO (08:40)
[2022-12-12] MEDS: Aspirin Enteric Coated 81 MG TABLET.DR PO (08:40)
[2022-12-12] MEDS: Furosemide 20 MG TABLET PO (08:40)
--- NOTE | 2022-12-12 09:26 | MHC.CM.PN ---
IMM 12/12. 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 Pt admitted with dizziness, headache, and vomiting. Pt lives at home with daughter Dary [phone] and uses a walker. 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 Pts daughter or granddaughter will transport. Pt gave permission for us to speak with her daughter Dray for further information. Pt and daughter state she has a PCP but do not know the name. No HCP, but assistance offered. Phillip rivas.
[2022-12-12 11:31] VITALS: BP 136/76; PULSE 70; RESP 18; TEMP 36.4; O2SAT 94
[2022-12-12 11:36] LABS: Glucose, Whole Blood 209 mg/dL (60-115)
[2022-12-12] MEDS: Insulin Lispro 100 UNIT/ML 3 ML VIAL SUBCUT ×2 (11:47→20:46)
--- NOTE | 2022-12-12 13:25 | P.CONCA_ITS ---
History of Present Illness History of Present Illness Date of Service: 12/12/22 Requesting physician: Maria Del Carmen Luis Chief complaint: Junctional bradycardia Narrative: 72-year-old female who presented with HHS and renal failure. She also had hyperkalemia. She has been fluid resuscitated and has improved significantly. Creatinine is improving. She was noticed to have junctional rhythm which was transient. Reviewing her old EKG at [facility] she also had junctional rhythm there recently. She has been taking verapamil 240 mg daily. She is currently sitting up eating and wants to go home. Denying any symptoms currently. Telemetry showing sinus rhythm. [facility] Past Medical History Medical History CKD (chronic kidney disease), stage III Hemiparesis affecting left side as late effect of cerebrovascular accident History of CVA (cerebrovascular accident) Hyperlipidemia Hyperosmolar hyperglycemic state (HHS) Hypertension Insulin dependent type 2 diabetes mellitus Nonproliferative diabetic retinopathy CHANEL (obstructive sleep apnea) Osteopenia Social History Social History Household Members: Family and Children Housing: Apartment Do you presently have visiting nurse or other home services: Yes Alcohol intake: never Patient Tobacco Use Status: Never used Tobacco service: No Meds Allergies Allergy/AdvReac Type Severity Reaction Status Date / Time No Known Allergies Allergy Verified 12/11/22 06:28 Active Medications: Current Medications Acetaminophen (Acetaminophen 325 Mg Tablet) 650 mg PO Q6H PRN PRN Reason: Pain, Mild (Pain Scale 1-3) Aspirin (Aspirin Enteric Coated 81 Mg Tablet.) 81 mg PO DAILY [facility] Last Admin: 12/12/22 08:40 Dose: 81 mg Atorvastatin Calcium (Atorvastatin Calcium 20 Mg Tablet) 20 mg PO DAILY [facility] Last Admin: 12/12/22 08:40 Dose: 20 mg Cefuroxime Axetil (Cefuroxime Axetil 500 Mg Tablet) 500 mg PO BID [facility] Stop: 12/13/22 09:01 Last Admin: 12/12/22 08:40 Dose: 500 mg Dextrose (Dextrose 50 % 25 Gm/50 Ml Syringe) 25 gm IVPUSH Q15M PRN; Protocol PRN Reason: per Hypoglycemia Standing Ord. Docusate Sodium (Docusate Sodium 100 Mg Capsule) 100 mg PO DAILY PRN PRN Reason: Constipation Furosemide (Furosemide 20 Mg Tablet) 20 mg PO DAILY [facility]; Protocol Last Admin: 12/12/22 08:40 Dose: 20 mg Glucose (Glucose Gel 15 Gm Gel..Gram.) 15 gm PO Q15M PRN; Protocol PRN Reason: per Hypoglycemia Standing Ord. Heparin Sodium (Porcine) (Heparin Sodium,Porcine 5,000 Unit/Ml Vial) 5,000 unit SUBCUT Q12H [facility] Last Admin: 12/12/22 02:19 Dose: 5,000 unit Sodium Chloride (Ns) 1,000 mls @ 100 mls/hr IVCONT .Q10H [facility] Last Admin: 12/12/22 12:09 Dose: 100 mls/hr Insulin Glargine (Insulin Glargine,Hum.Rec.Anlog 100 Unit/Ml 10 Ml Vial) 10 unit SUBCUT DAILY [facility] Last Admin: 12/12/22 08:40 Dose: 10 unit Insulin Human Lispro (Insulin Lispro 100 Unit/Ml 3 Ml Vial) 0 unit SUBCUT QIDACHS [facility]; Protocol Last Admin: 12/12/22 11:47 Dose: 4 unit Ondansetron HCl (Ondansetron Hcl 4 Mg/2 Ml Vial) 4 mg IVPUSH Q8H PRN PRN Reason: Nausea and Vomiting Pharmacy Consult (Consult Rx Perform Med Rec) 1 each MISCELLANE ONCE PRN PRN Reason: Consult order Sodium Chloride (0.9 % Sodium Chloride Flush 3 Ml Syringe) 3 ml IVFLUSH QSHIFT [facility] Last Admin: 12/12/22 13:20 Dose: Not Given Home Medications Medication Instructions Recorded Confirmed Last Taken Type aspirin 81 mg tablet,delayed 81 mg PO DAILY 12/11/22 12/11/22 Unknown History release atorvastatin 20 mg tablet 20 mg PO DAILY 12/11/22 12/11/22 Unknown History cefpodoxime 200 mg tablet 200 mg PO Q12H 12/11/22 12/11/22 Unknown History furosemide 20 mg tablet 20 mg PO DAILY 12/11/22 12/11/22 Unknown History insulin aspart U-100 100 unit/mL 5 unit subcut TID 12/11/22 12/11/22 Unknown History (3 mL) subcutaneous pen (Novolog FlexPen U-100 Insulin aspart) insulin glargine 100 unit/mL (3 10 unit subcut DAILY 12/11/22 12/11/22 Unknown History mL) subcutaneous pen (Lantus Solostar U-100 Insulin) losartan 25 mg tablet 25 mg PO DAILY 12/11/22 12/11/22 Unknown History metformin 500 mg tablet,extended 500 mg PO DAILY 12/11/22 12/11/22 Unknown History release 24 hr verapamil 240 mg 24 hr 240 mg PO DAILY 12/11/22 12/11/22 Unknown History capsule,extended release Physical Exam Vital Signs: Vital Signs: Last Vital Signs Temp 97.5 F 12/12/22 11:31 Pulse 70 12/12/22 11:31 Resp 18 12/12/22 11:31 BP 136/76 12/12/22 11:31 Pulse Ox 94 12/12/22 11:31 O2 Del Method Room Air 12/12/22 11:31 O2 Flow Rate 1 12/11/22 12:01 BMI result Body Mass Index 25.1 GENERAL APPEARANCE: in no acute distress, pleasant. NECK: no carotid bruit, no jugular venous distention. SKIN: no suspicious lesions, warm and dry. HEART: no murmurs, regular rate and rhythm. LUNGS: clear to auscultation bilaterally. ABDOMEN: soft, nontender. EXTREMITIES: no edema. PERIPHERAL PULSES: equal. NEUROLOGIC: No gross deficits, AAO X 3 Objective Labs and Meds 12/12/22 06:53 12/12/22 06:53 Lab results: Laboratory Results - last 24 hr 12/11/22 12/11/22 12/11/22 15:26 16:45 17:31 WBC RBC Hgb Hct MCV MCH MCHC RDW Plt Count MPV Immature Gran % (Auto) Neut % (Auto) Lymph % (Auto) [place] % (Auto) Eos % (Auto) Baso % (Auto) Lymph # (Auto) [place] # (Auto) Eos # (Auto) Baso # (Auto) Abs Immat Gran (auto) Absolute Neuts (auto) Absolute Nucleated RBC Nucleated RBC % (auto) Sodium Potassium Chloride Carbon Dioxide Anion Gap BUN Creatinine Estim Creat Clear Calc Estimated GFR POC Glucose 262 H 213 H Random Glucose Calcium Urine Color Yellow Urine Appearance Clear Urine pH 5.5 Ur Specific [place] 1.015 Urine Protein 30 (1+) H Urine Glucose (UA) 250 H Urine Ketones Negative Urine Blood Negative Urine Nitrite Negative Ur Leukocyte Esterase Negative Urine RBC 0-2 Urine WBC 0-5 Ur Squamous Epith Cells 0-2 Urine Bacteria None Seen Hyaline Casts 0-2 12/11/22 12/11/22 12/12/22 18:37 20:10 01:09 WBC RBC Hgb Hct MCV MCH MCHC RDW Plt Count MPV Immature Gran % (Auto) Neut % (Auto) Lymph % (Auto) [place] % (Auto) Eos % (Auto) Baso % (Auto) Lymph # (Auto) [place] # (Auto) Eos # (Auto) Baso # (Auto) Abs Immat Gran (auto) Absolute Neuts (auto) Absolute Nucleated RBC Nucleated RBC % (auto) Sodium 143 Potassium 4.8 Chloride 110 H Carbon Dioxide 21 L Anion Gap TNP BUN 66 H Creatinine 2.65 H Estim Creat Clear Calc 13.6 Estimated GFR 18 POC Glucose 71 162 H Random Glucose 135 H Calcium 9.6 D Urine Color Urine Appearance Urine pH Ur Specific [place] Urine Protein Urine Glucose (UA) Urine Ketones Urine Blood Urine Nitrite Ur Leukocyte Esterase Urine RBC Urine WBC Ur Squamous Epith Cells Urine Bacteria Hyaline Casts 12/12/22 12/12/22 12/12/22 06:53 06:53 07:31 WBC 7.9 RBC 3.34 L Hgb 9.6 L Hct 30.0 L MCV 89.8 MCH 28.7 MCHC 32.0 RDW 14.8 Plt Count 170 MPV 10.9 Immature Gran % (Auto) 0.3 Neut % (Auto) 59.8 Lymph % (Auto) 31.5 [place] % (Auto) 5.6 Eos % (Auto) 2.5 Baso % (Auto) 0.3 Lymph # (Auto) 2.5 [place] # (Auto) 0.4 Eos # (Auto) 0.2 Baso # (Auto) 0.0 Abs Immat Gran (auto) 0.02 Absolute Neuts (auto) 4.7 Absolute Nucleated RBC 0.000 Nucleated RBC % (auto) 0.0 Sodium 144 Potassium 4.5 Chloride 112 H Carbon Dioxide 26 Anion Gap 11 L BUN 51 H Creatinine 2.02 H Estim Creat Clear Calc 17.9 Estimated GFR 24 POC Glucose 95 Random Glucose 111 Calcium 9.3 Urine Color Urine Appearance Urine pH Ur Specific [place] Urine Protein Urine Glucose (UA) Urine Ketones Urine Blood Urine Nitrite Ur Leukocyte Esterase Urine RBC Urine WBC Ur Squamous Epith Cells Urine Bacteria Hyaline Casts 12/12/22 11:33 WBC RBC Hgb Hct MCV MCH MCHC RDW Plt Count MPV Immature Gran % (Auto) Neut % (Auto) Lymph % (Auto) [place] % (Auto) Eos % (Auto) Baso % (Auto) Lymph # (Auto) [place] # (Auto) Eos # (Auto) Baso # (Auto) Abs Immat Gran (auto) Absolute Neuts (auto) Absolute Nucleated RBC Nucleated RBC % (auto) Sodium Potassium Chloride Carbon Dioxide Anion Gap BUN Creatinine Estim Creat Clear Calc Estimated GFR POC Glucose 209 H Random Glucose Calcium Urine Color Urine Appearance Urine pH Ur Specific [place] Urine Protein Urine Glucose (UA) Urine Ketones Urine Blood Urine Nitrite Ur Leukocyte Esterase Urine RBC Urine WBC Ur Squamous Epith Cells Urine Bacteria Hyaline Casts Assessment and Plan (1) Junctional bradycardia: Status: Acute Plan [age] year female who presented with HHS and acute renal failure with hyperkalemia and was noticed to be bradycardic. She had junctional bradycardia when she was admitted to [facility] recently too. She is on verapamil 240 mg once a day. Verapamil has been stopped at this stage. I think she should not be restarted on verapamil as outpatient. Currently in sinus rhythm and stable. We will see her in the office and arrange Holter monitoring. Thank you for allowing me to participate in the care of your patient. Please feel free to contact me if you have any questions. Time Spent With Patient Time: Total time managing care of this patient today ____ minutes. Procedures Date of Service Date of Service: 12/12/22
[2022-12-12 15:20] VITALS: BP 170/68; PULSE 80; RESP 14; TEMP 36.1; O2SAT 96
[2022-12-12 15:30] LABS: Glucose, Whole Blood 98 mg/dL (60-115)
--- NOTE | 2022-12-12 16:16 | HO.PM.IMPN ---
Subjective Subjective Date of Service: 12/12/22 Interval History: History obtained via tail dogger, Sitting comfortably eating breakfast, offers no acute complaints, denies nausea, no vomiting, no abdominal pain, blood sugars stable this morning no acute events overnight. Review of Systems Pulmonary denies cough, no shortness of breath denies urgency, no frequency, no burning Musculoskeletal no pain Rest all other system reviewed and negative Physical Exam Vital Signs: Vital Signs: Last Vital Signs Temp 97.0 F 12/12/22 15:20 Pulse 80 12/12/22 15:20 Resp 14 12/12/22 15:20 BP 170/68 H 12/12/22 15:20 Pulse Ox 96 12/12/22 15:20 O2 Del Method Room Air 12/12/22 15:20 O2 Flow Rate 1 12/11/22 12:01 BMI result Body Mass Index 25.1 Const: Other: General resting comfortably in no acute distress. Anicteric sclera Neck supple no JVD. CVS regular rate rhythm, Respiratory lungs clear to auscultation, no respiratory distress, no wheeze, no rhonchi. Gastrointestinal abdomen soft, nontender, bowel sounds audible, no guarding , no rigidity. Extremities no edema. Neuro awake alert x3, speech clear. Skin no rash Objective Data Active Medications Acetaminophen (Acetaminophen 325 Mg Tablet) 650 mg PO Q6H PRN PRN Reason: Pain, Mild (Pain Scale 1-3) Aspirin (Aspirin Enteric Coated 81 Mg Tablet.) 81 mg PO DAILY [facility] Last Admin: 12/12/22 08:40 Dose: 81 mg Documented By: JACKELIN Atorvastatin Calcium (Atorvastatin Calcium 20 Mg Tablet) 20 mg PO DAILY [facility] Last Admin: 12/12/22 08:40 Dose: 20 mg Documented By: JACKELIN Cefuroxime Axetil (Cefuroxime Axetil 500 Mg Tablet) 500 mg PO BID [facility] Stop: 12/13/22 09:01 Last Admin: 12/12/22 08:40 Dose: 500 mg Documented By: JACKELIN Dextrose (Dextrose 50 % 25 Gm/50 Ml Syringe) 25 gm IVPUSH Q15M PRN; Protocol PRN Reason: per Hypoglycemia Standing Ord. Docusate Sodium (Docusate Sodium 100 Mg Capsule) 100 mg PO DAILY PRN PRN Reason: Constipation Furosemide (Furosemide 20 Mg Tablet) 20 mg PO DAILY [facility]; Protocol Last Admin: 12/12/22 08:40 Dose: 20 mg Documented By: JACKELIN Glucose (Glucose Gel 15 Gm Gel..Gram.) 15 gm PO Q15M PRN; Protocol PRN Reason: per Hypoglycemia Standing Ord. Heparin Sodium (Porcine) (Heparin Sodium,Porcine 5,000 Unit/Ml Vial) 5,000 unit SUBCUT Q12H [facility] Last Admin: 12/12/22 14:15 Dose: 5,000 unit Documented By: JACKELIN Insulin Glargine (Insulin Glargine,Hum.Rec.Anlog 100 Unit/Ml 10 Ml Vial) 10 unit SUBCUT DAILY [facility] Last Admin: 12/12/22 08:40 Dose: 10 unit Documented By: JACKELIN Insulin Human Lispro (Insulin Lispro 100 Unit/Ml 3 Ml Vial) 0 unit SUBCUT QIDACHS [facility]; Protocol Last Admin: 12/12/22 11:47 Dose: 4 unit Documented By: JACKELIN Ondansetron HCl (Ondansetron Hcl 4 Mg/2 Ml Vial) 4 mg IVPUSH Q8H PRN PRN Reason: Nausea and Vomiting Pharmacy Consult (Consult Rx Perform Med Rec) 1 each MISCELLANE ONCE PRN PRN Reason: Consult order Sodium Chloride (0.9 % Sodium Chloride Flush 3 Ml Syringe) 3 ml IVFLUSH QSHIFT [facility] Last Admin: 12/12/22 13:20 Dose: Not Given Documented By: JACKELIN Non-Admin Reason: Previously Administered Labs 12/12/22 06:53 12/12/22 06:53 Labs: Laboratory Results - last 24 hr 12/11/22 12/11/22 12/11/22 16:45 17:31 18:37 MCV MCH MCHC RDW Plt Count MPV Immature Gran % (Auto) Neut % (Auto) Lymph % (Auto) [place] % (Auto) Eos % (Auto) Baso % (Auto) Lymph # (Auto) [place] # (Auto) Eos # (Auto) Baso # (Auto) Abs Immat Gran (auto) Absolute Neuts (auto) Absolute Nucleated RBC Nucleated RBC % (auto) Anion Gap TNP Estim Creat Clear Calc 13.6 Estimated GFR 18 POC Glucose 262 H 213 H Random Glucose 135 H Calcium 9.6 D 12/11/22 12/12/2212/12/23 20:10 01:09 06:53 MCV 89.8 MCH 28.7 MCHC 32.0 RDW 14.8 Plt Count 170 MPV 10.9 Immature Gran % (Auto) 0.3 Neut % (Auto) 59.8 Lymph % (Auto) 31.5 [place] % (Auto) 5.6 Eos % (Auto) 2.5 Baso % (Auto) 0.3 Lymph # (Auto) 2.5 [place] # (Auto) 0.4 Eos # (Auto) 0.2 Baso # (Auto) 0.0 Abs Immat Gran (auto) 0.02 Absolute Neuts (auto) 4.7 Absolute Nucleated RBC 0.000 Nucleated RBC % (auto) 0.0 Anion Gap Estim Creat Clear Calc Estimated GFR POC Glucose 71 162 H Random Glucose Calcium 12/12/22 12/12/22 12/12/22 06:53 07:31 11:33 MCV MCH MCHC RDW Plt Count MPV Immature Gran % (Auto) Neut % (Auto) Lymph % (Auto) [place] % (Auto) Eos % (Auto) Baso % (Auto) Lymph # (Auto) [place] # (Auto) Eos # (Auto) Baso # (Auto) Abs Immat Gran (auto) Absolute Neuts (auto) Absolute Nucleated RBC Nucleated RBC % (auto) Anion Gap 11 L Estim Creat Clear Calc 17.9 Estimated GFR 24 POC Glucose 95 209 H Random Glucose 111 Calcium 9.3 12/12/22 15:26 MCV MCH MCHC RDW Plt Count MPV Immature Gran % (Auto) Neut % (Auto) Lymph % (Auto) [place] % (Auto) Eos % (Auto) Baso % (Auto) Lymph # (Auto) [place] # (Auto) Eos # (Auto) Baso # (Auto) Abs Immat Gran (auto) Absolute Neuts (auto) Absolute Nucleated RBC Nucleated RBC % (auto) Anion Gap Estim Creat Clear Calc Estimated GFR POC Glucose 98 Random Glucose Calcium Microbiology Microbiology Results: Microbiology 12/11/22 08:12 Blood Culture - Preliminary Blood - Venous No growth after 24 hours. 12/11/22 08:12 Blood Culture - Preliminary Blood - Venous No growth after 24 hours. Assessment and Plan (1) Junctional bradycardia: Status: Acute (2) Hyperosmolar hyperglycemic state (HHS): Status: Acute (3) Acute hyperkalemia: Status: Acute (4) Acute renal failure: Status: Acute (5) Acute hyperglycemia: Status: Acute Plan 72-year-old female with history of CKD, hypertension, hyperlipidemia, history of CVA with sequela left-sided hemiparesis, insulin-dependent type 2 diabetes, nonproliferative diabetic retinopathy, CHANEL noncompliant with CPAP, and osteopenia admitted for HHS with ILYA and hyperkalemia. # hyperosmolar hyperglycemic state -likely r/t medication noncompliance for T2Dm management -Hgb A1c 12.1% with recent d/c from [facility] for HHS on 12/03,Glucose on arrival >560. No acidosis on VBG, no gap -blood sugar 95 this morning, Continue lantus 10units daily, SSI, dc metformin due to CKD GFR less than 30 -continue Diabetic diet, and close blood sugar monitoring, #Acute on chronic kidney Injury- stage 3 versus 4 likely pre renal , creatinine returned to baseline around 2 with IV fluids -DC IV NS and follow BMP -Avoid nephrotoxins #Acute hyperkalemia -r/t above,On arrival 7.1, improved to 5.8 with IV insulin and IVF. Status post Lokelma 10 mg, repeat potassium normalized to 4.5 No EKG changes -resume losartan -Follow BMP -Monitor on telemetry #Junctional rhythm with bradycardia -HR in 40s on arrival to ED, now 80, will discontinue verapamil continue tele monitor Case discussed with Dr. Vasquez he agree with treatment plan -Vague cardiac history diagnosed in [place], diagnosis unclear -monitor on telemetry # pseudo hyponatremia-resolved -related to hyperglycemia # hypertension -hold verapamil ,resume losartan # CHANEL -not on CPAP # UTI -diagnosed at [facility], urine culture appears contaminated, UA on admission showed no bacteria, no nitrates or leukocyte estrace on Ceftin for 1 more day DVT prophylaxis-heparin Full code Patient requires continued inpatient stay for management of bradycardia, hyperglycemia , ILYA and electrolyte abnormality , need close monitoring of electrolytes and renal function as well as cardiac monitoring. Time Spent With Patient Time: Total time managing care of this patient today ____ minutes. Quality Stroke Does the patient have a stroke diagnosis?: No VTE Prior VTE?: No VTE Risk Level:: Medical - moderate - high VTE Device Contraindication: Treatment Not Indicated VTE Drug Contraindication: N/A - Med Ordered
[2022-12-12] MEDS: Losartan Potassium 25 MG TABLET PO (16:47)
[2022-12-12 19:03] VITALS: BP 174/78; PULSE 80; RESP 14; TEMP 36.7; O2SAT 95
[2022-12-12 20:15] LABS: Glucose, Whole Blood 254 mg/dL (60-115)
[2022-12-12 22:44] VITALS: BP 198/62; PULSE 70; RESP 20; TEMP 36.4; O2SAT 100
[2022-12-13] MEDS: 0.9 % Sodium Chloride Flush 3 ML SYRINGE IVFLUSH ×2 (00:16→08:57)
[2022-12-13] MEDS: Heparin Sodium,Porcine 5,000 UNIT/ML VIAL 5000 UNIT SUBCUT (03:00)
[2022-12-13 04:00] VITALS: BP 134/64; PULSE 86; RESP 16; TEMP 36.8; O2SAT 99
[2022-12-13 07:08] VITALS: BP 170/70; PULSE 61; RESP 20; TEMP 36.4; O2SAT 97
[2022-12-13 07:42] LABS: Glucose, Whole Blood 111 mg/dL (60-115)
[2022-12-13 08:36] LABS: Anion Gap 11 (12-20); Blood Urea Nitrogen 39 mg/dL (9-16); Calcium 9.9 mg/dL (8.4-10.2); Carbon Dioxide 28 mmol/L (22-29); Chloride 108 mmol/L (96-108); Creatinine Clr Calc Pharmacy 21.4; Estimated Glomerular Filt Rate 30; Glucose Random 124 mg/dL (60-115); Potassium 4.5 mmol/L (3.3-5.1); Sodium 142 mmol/L (135-145)
[2022-12-13] MEDS: Atorvastatin Calcium 20 MG TABLET PO (08:56)
[2022-12-13] MEDS: Furosemide 20 MG TABLET PO (08:56)
[2022-12-13] MEDS: Losartan Potassium 25 MG TABLET PO (08:56)
[2022-12-13] MEDS: Aspirin Enteric Coated 81 MG TABLET.DR PO (08:56)
[2022-12-13] MEDS: Insulin Glargine,Hum.rec.anlog 100 UNIT/ML 10 ML VIAL 10 UNIT SUBCUT (08:57)
--- NOTE | 2022-12-13 10:50 | MHC.CM.PN ---
Addendum entered by Christen Fraire RN 12/13/22 13:34: [facility] will provide custodial for pt. Original Note: PT MEDICALLY CLEARED FOR D/C HOME W/NEW VNA FOR SN FOR DIABETES ED/MED MANAGEMENT, CM WORKING ON SECURING VNA, [facility] FOR TRANSPORT.
[2022-12-13] MEDS: amLODIPine Besylate 5 MG TABLET PO (10:59)
[2022-12-13 11:02] LABS: Glucose, Whole Blood 238 mg/dL (60-115)
[2022-12-13 11:10] VITALS: BP 180/70; PULSE 63; RESP 20; TEMP 37.1; O2SAT 97
[2022-12-13 11:42] VITALS: BP 168/78
[2022-12-13] MEDS: Insulin Lispro 100 UNIT/ML 3 ML VIAL SUBCUT (11:56)
--- NOTE | 2022-12-13 12:08 | PM.DS ---
DS: Providers Provider Date of Service: 12/13/22 Date of admission: 12/11/22 14:18 Primary care physician: Unknown Physician Consults: 12/11/22 15:45 Consult to Cardiology Routine Consulting Provider: [facility] Reason for consultation: junctional rhythm, bradycardia DS: Diagnosis Discharge Diagnosis (1) Junctional bradycardia: Status: Acute (2) Hyperosmolar hyperglycemic state (HHS): Status: Acute (3) Acute hyperkalemia: Status: Acute (4) Acute renal failure: Status: Acute (5) Acute hyperglycemia: Status: Acute DS: Summary Hospital Course Hospital Course: Date of Service: 12/11/22 Attending physician on admission: Ileana Avila Chief Complaint: n/v, hyperglycemia 72-year-old female with history of CKD, hypertension, hyperlipidemia, history of CVA with sequela left-sided hemiparesis, insulin-dependent type 2 diabetes, nonproliferative diabetic retinopathy, CHANEL noncompliant with CPAP, and osteopenia presented to the ED earlier today with her daughter, Kim, for evaluation of hyperglycemia, nausea, and vomiting.? Per the patient's daughter who provides most of the history, the patient was recently admitted at [facility] for hyperosmolar hyperglycemic state, hemoglobin A1c found to be 12.1% treated with insulin drip and transitioned to an discharged on Lantus 10 units and NovoLog on sliding scale.? While admitted, she was also found to have UTI and community-acquired pneumonia and was discharged with cefpodoxime and azithromycin.? According to her daughter, the patient is under the care of the patient's granddaughter during the day and has been compliant with diabetic diet as well as metformin but it is not clear if the patient has been taking insulin as she was discharged on.? Yesterday, the patient began feeling generally unwell and was found lying in bed nauseous and did vomit early this morning.? Last night glucose was 480 and her daughter reports they brought her to [facility] ED but the patient was not seen so they left.? This morning the patient was feeling worse and glucose was around 500 so they presented to the ED. On arrival, vital stable the patient did develop bradycardia in the low 40s with EKG showing junctional rhythm, no T-wave abnormality.? Upon questioning, the patient reports that the patient has some cardiac arrhythmia but she is unsure of the type as it was diagnosed in [place] though she does take ?medication? for this.? There is no leukocytosis.? She has a stable normocytic anemia, consistent with baseline.? Initial creatinine 3.34, BUN 74, sodium 131, potassium 7.1, CO2 20, anion gap closed at 17, glucose 587.? Beta hydroxybutyrate within normal limits. VBG with normal ph.? Patient started insulin drip per protocol, and given 2 L IV NS.? Chemistries were repeated with improvement in sodium to 140, potassium 5.8, chloride 109, BUN 69, creatinine 3.09, glucose 285.? Patient was given 10 units Lantus and weaned from insulin drip.? Glucose on admission is 205. Of note, on discharge from [facility] creat was 2.9, but baseline on appears to be around 1.9). UA with +glucose, 1+ protein, otherwise unremarkable. Hospital course: 72-year-old female with history of CKD, hypertension, hyperlipidemia, history of CVA with sequela left-sided hemiparesis, insulin-dependent type 2 diabetes, nonproliferative diabetic retinopathy, CHANEL noncompliant with CPAP, and osteopenia admitted for HHS with ILYA and hyperkalemia. # hyperosmolar hyperglycemic state -likely r/t medication noncompliance for T2Dm management,Hgb A1c 12.1% with recent d/c from [facility] for HHS on 12/03,Glucose on arrival >560. No acidosis on VBG, no gap Blood sugars improved recommend to continue lantus 10units daily, SSI, dc metformin due to CKD, continue Diabetic diet, and close blood sugar monitoring, called patient and daughter and informed DC plan, patient will be discharged with VNA services. #Acute on chronic kidney Injury- stage 3 question related to diabetes, renal function improved with IV fluids, continue losartan and recommend outpatient follow-up with Nephrology. Avoid nephrotoxins #Acute hyperkalemia related to hyperglycemia improved with IV insulin and IV fluid repeat potassium normalized, EKG stable #Junctional rhythm with bradycardia -HR in 40s on arrival to ED, now 80, discontinue verapamil , patient asymptomatic, no heart blocks noted. # pseudo hyponatremia-resolved ,related to hyperglycemia # hypertension continue losartan, added Norvasc 5 mg daily since verapamil discontinued due to bradycardia # CHANEL -not on CPAP, stable oxygenation # UTI -diagnosed at [facility], urine culture appears contaminated, UA on admission showed no bacteria, no nitrates or leukocyte estrace finished course of Ceftin Time Spent with Patient Time attestation: Total time managing care of this patient today ____ minutes. Discharge coordination time: Greater than 30 minutes Quality: Safe Use of Opioids Does Pt have an Active Cancer Diagnosis on the Problem List?: No Quality: Stroke Does the patient have a stroke diagnosis?: No Physical Exam Vital Signs: Vital Signs: Last Vital Signs Temp 98.8 F 12/13/22 11:10 Pulse 63 12/13/22 11:10 Resp 20 12/13/22 11:10 BP 168/78 H 12/13/22 11:42 Pulse Ox 97 12/13/22 11:10 O2 Del Method Room Air 12/13/22 11:10 O2 Flow Rate 1 12/11/22 12:01 BMI result Body Mass Index 25.1 Const: Other: General? resting c omfortably in no a cute distress. Ani cteric sclera Neck ? supple no JVD. C VS? regular rate r hythm, Respiratory lungs clear to au scultation, no res piratory distress, no wheeze, no rho nchi. Gastrointest inal abdomen soft, non tender, bowel sounds audible, n o guarding , no ri gidity. Extremitie s no edema. Neuro awake alert x3, sp eech clear. Skin n o rash DS: Data Data Completed and Pending Labs on day of discharge: Laboratory Results - last 24 hr 12/12/22 12/12/22 12/13/22 15:26 20:06 07:34 Sodium Potassium Chloride Carbon Dioxide Anion Gap BUN Creatinine Estim Creat Clear Calc Estimated GFR POC Glucose 98 254 H 111 Random Glucose Calcium 12/13/22 12/13/22 08:03 10:47 Sodium 142 Potassium 4.5 Chloride 108 Carbon Dioxide 28 Anion Gap 11 L BUN 39 H Creatinine 1.68 H Estim Creat Clear Calc 21.4 Estimated GFR 30 POC Glucose 238 H Random Glucose 124 H Calcium 9.9 D Preliminary micro results at discharge 12/11/22 08:12 Blood Culture - Preliminary Blood - Venous No growth after 48 hours. 12/11/22 08:12 Blood Culture - Preliminary Blood - Venous No growth after 48 hours. Discharge Plan Discharge Anticipated Discharge Date/Time: 12/13/22 11:48 Patient Disposition: Home Health Service Discharge Diagnosis: Acute renal failure hyperkalemia Hyperglycemia Referrals: Physician,Unknown J [Primary Care Provider] - 1 Week Discharge Medications: New amlodipine [Norvasc] 5 mg tablet 5 mg PO DAILY Qty: 30 0RF Continued atorvastatin 20 mg tablet 20 mg PO DAILY aspirin 81 mg tablet,delayed release (DR/EC) 81 mg PO DAILY losartan 25 mg tablet 25 mg PO DAILY furosemide 20 mg tablet 20 mg PO DAILY insulin aspart U-100 [Novolog FlexPen U-100 Insulin] 100 unit/mL (3 mL) insulin pen 5 unit SUBCUT TID insulin glargine [Lantus Solostar U-100 Insulin] 100 unit/mL (3 mL) insulin pen 10 unit SUBCUT DAILY Discontinued cefpodoxime 200 mg tablet 200 mg PO Q12H metformin 500 mg tablet extended release 24 hr 500 mg PO DAILY verapamil 240 mg capsule,ext rel. pellets 24 hr 240 mg PO DAILY Discharge Orders: Discharge Order (Routine); Ordered 12/13/22 Ordered By: Maria Del Carmen Luis Diet: Diabetic diet Activity on Discharge: As tolerated Stand Alone Forms: Patient Portal Discharge page Care Plan Goals: Monitor blood sugar before meals and at bedtime , follow diabetic diet Monitor blood pressure Take all medications as prescribed Health Concerns: Diabetes mellitus/renal insufficiency Plan of Treatment: Outpatient follow-up with PCP in 1 week. Assessment: As above
--- NOTE | 2022-12-13 12:22 | MHC.CM.PN ---
CM CONTACTED [facility]TR [facility] AT 12:15PM VIA PHONE MODELING AGENT TO DETERMINE PCP, N[facility] CONFIRMS PT GOES TO [facility] AND SEES DR PHYLLIS SCANLON, [place] REFERRAL UPDATED.
--- NOTE | 2022-12-18 11:04 | P.F2F_ITS ---
Service Date Service Date: 12/13/22 Encounter Date of encounter: 12/13/22 Reasons for Services Signs and symptoms assessed: elevated blood sugars, renal failure Reason for assisted: diabetic teaching, medication management, teach disease management and GI/ assessment Homebound: Leaving the home is medically contraindicated at this time without the asist of a device and/or another person due th the listed conditions above and below. Reason homebound: weakness related to hospital stay Certification: Based on the above findings, I certify that this patient is confined to the home and needs intermittent assisted care, physical therapy and/or speech therapy, or continues to need occupational therapy. The patient is under my care, and I have initiated the establishment of the plan of care. The patient will be followed by a physician who will periodically review the plan of care. Time Spent With Patient Time: Total time managing care of this patient today ____ minutes.
--- NOTE | 2022-12-20 14:39 | P.CDIM_ITS ---
PROVIDER RESPONSE TEXT: To clarify, the appropriate diagnosis supported by the clinical indicators: CKD, stage 3b QUERY TEXT: PHYSICIAN'S DOCUMENTATION REQUEST Date of Query: 12/13/2022 07:41 AM EDT Patient Name: Eliza Ann Admit Date: 12/11/2022 Dear Maria Del Carmen Luis, A review of the medical record indicates additional documentation may be needed. Please review below and update the documentation accordingly. Clinical Indicators: Per Hospitalist Progress Note 12/12/22: Acute on chronic kidney Injury- stage 3 versus 4 likely pre renal , creatinine returned to baseline around 2 with IV fluids -DC IV NS and follow BMP -Avoid nephrotoxins On 12/12/22: BUN 51 Creatinine 2.02 Est GFR 24 Please clarify which of the following accurately represents the patient's renal status: CKD, stage 3a CKD, stage 3b CKD, stage 4 Other (explain)Clinically unable to determine (explain)Thank you, Suly Sheriff RN Use of terms such as suspected, likely, concern for, or probable (associated with a specific diagnosi s that is being evaluated, monitored, or treated as if it exists) are acceptable and can be coded in the inpatient se tting, when documented at the time of discharge. Please use your independent medical judgment in providing your response. THIS QUERY IS PART OF THE PERMANENT MEDICAL RECORD
== END 2022-12-13 12:59 | disposition home health service (06) | DRG 638 ==
LOC: HO.ED 12:38 → HO.EDOVER 14:36 → HO.IMC 16:14
PROVIDERS: Family Medicine; Physician Assistant; Admitting Provider Physician Assistant; Emergency Provider Emergency Medicine; PCP Student in an Organized Health Care Education/Training Program; Visit Provider Hospitalist
DX: E11.00 Type 2 diabetes mellitus with hyperosmolarity without nonketotic hyperglycemic-hyperosmolar coma (NKHHC) (principal); I69.354 Hemiplegia and hemiparesis following cerebral infarction affecting left non-dominant side; N17.9 Acute kidney failure, unspecified; N18.4 Chronic kidney disease, stage 4 (severe); N39.0 Urinary tract infection, site not specified; E87.5 Hyperkalemia; G47.33 Obstructive sleep apnea (adult) (pediatric); E11.22 Type 2 diabetes mellitus with diabetic chronic kidney disease; E78.5 Hyperlipidemia, unspecified; I12.9 Hypertensive chronic kidney disease with stage 1 through stage 4 chronic kidney disease, or unspecified chronic kidney disease; D63.1 Anemia in chronic kidney disease; R00.1 Bradycardia, unspecified; E86.0 Dehydration; Z91.148 Patient's other noncompliance with medication regimen for other reason; Z91.199 Patient's noncompliance with other medical treatment and regimen due to unspecified reason; Z79.4 Long term (current) use of insulin; Z79.82 Long term (current) use of aspirin; Z79.899 Other long term (current) drug therapy
CPT/HCPCS: 36415; 71046; 80048; 80053; 81001; 82010; 82803; 82947; 83735; 85025; 87040; 87635; 93005; 99285; J1643

== ENCOUNTER → 2022-12-11 14:18 | Outpatient (BNV) | payer OTHER, SELFPAY | PROVIDERS: Admitting Provider Physician Assistant; Emergency Provider Emergency Medicine; Visit Provider Physician Assistant | DX: E11.00 Type 2 diabetes mellitus with hyperosmolarity without nonketotic hyperglycemic-hyperosmolar coma (NKHHC) (principal); E87.5 Hyperkalemia; N17.9 Acute kidney failure, unspecified; E11.65 Type 2 diabetes mellitus with hyperglycemia; R00.1 Bradycardia, unspecified | CPT/HCPCS: 99223; 99233; 99239; 99499; G0180 ==

== ENCOUNTER → 2022-12-11 14:18 | Outpatient (BNV) | payer OTHER, SELFPAY | PROVIDERS: Admitting Provider Physician Assistant; Emergency Provider Emergency Medicine; Visit Provider Internal Medicine Cardiovascular Disease | DX: R00.1 Bradycardia, unspecified (principal); I49.2 Junctional premature depolarization | CPT/HCPCS: 93010; 99222 ==

== ENCOUNTER 2023-01-22 14:06 | Outpatient (AMB) | payer OTHER, SELFPAY ==
[2023-01-22 14:21] VITALS: BP 104/58; PULSE 86; BMI 25.2
--- NOTE | 2023-01-22 14:21 | A.OFFVIS_ITS ---
Intake Vital Signs 01/22/23 14:21 Height 4 ft 10 in Weight 120 lb 13.013 oz BMI 25.2 BP 104/58 L Blood Pressure Location Lt brachial Position Sitting Pulse 86 Pulse Source Pulse Oximeter Int[place] [facility] [place] [facility] [place] Streetcar Motorman Required: Yes Streetcar Motorman Language: Trolley Car Overhauler Name: Sachin [id number] [place] Ipad Accompanied by: Grand Child Allergies No Known Allergies Allergy (Verified 01/22/23 14:24) Medication List - Last Reconciled 01/22/23 by Tam Vasquez MD amlodipine (Norvasc) 5 mg PO DAILY aspirin 81 mg PO DAILY atorvastatin 20 mg PO DAILY dulaglutide (Trulicity) mg subcut furosemide 20 mg PO DAILY insulin aspart U-100 (Novolog FlexPen U-100 Insulin aspart) 5 units subcut TID insulin glargine (Lantus Solostar U-100 Insulin) 10 units subcut DAILY levothyroxine 25 mcg PO DAILY losartan 25 mg PO DAILY HPI HPI Comments History of Present Illness Details Pleasant 72-year-old female who is here for follow-up . She was seen in the hospital in November when she presented with hyperkalemia in the setting of diabetic ketoacidosis and bradycardia. She was also on verapamil. Bradycardia improved after her potassium was corrected and verapamil was stopped. She was stable and was discharged home. She returns and has been doing well. No dizziness, chest pain or shortness of breath. Overall stable and denying any symptoms on follow-up. [facility] Medical History (Updated 01/22/23 @ 14:36 by Tam Vasquez MD) CKD (chronic kidney disease), stage III Hemiparesis affecting left side as late effect of cerebrovascular accident History of CVA (cerebrovascular accident) Hyperlipidemia Hyperosmolar hyperglycemic state (HHS) Hypertension Insulin dependent type 2 diabetes mellitus Nonproliferative diabetic retinopathy CHANEL (obstructive sleep apnea) Osteopenia Surgical History (Updated 01/22/23 @ 14:27 by MARIAN Alberts) No pertinent past surgical history Social History Household Members: Family and Children Housing: Apartment Do you presently have visiting nurse or other home services: Yes Alcohol intake: never Patient Tobacco Use Status: Never used Tobacco service: No Review of Systems Const Denies weakness ENT Denies dizziness Card Denies chest pain, Denies chest pain with activity, Denies syncope, Denies rapid heart rate, Denies pedal edema, Denies edema, Denies leg edema, Denies lightheadedness, Denies palpitations, Denies dyspnea, Denies dyspnea on exertion and Denies orthopnea Resp Denies cough, Denies dyspnea and Denies dyspnea on exertion GI Denies hematochezia and Denies change in stool character Musc Denies abnormal gait, Denies muscle cramps, Denies muscle weakness, Denies numbness, Denies radiating pain into limb and Denies tingling Neuro Denies abnormal gait, Denies dizziness, Denies syncope, Denies numbness, Denies tingling and Denies weakness Endo Denies palpitations Physical Exam Vital Signs: Last Vital Signs Pulse 86 01/22/23 14:21 BP 104/58 L 01/22/23 14:21 BMI result Body Mass Index 25.2 GENERAL APPEARANCE: in no acute distress, pleasant. NECK: no carotid bruit, no jugular venous distention. SKIN: no suspicious lesions, warm and dry. HEART: no murmurs, regular rate and rhythm. LUNGS: clear to auscultation bilaterally. ABDOMEN: soft, nontender. EXTREMITIES: no edema. PERIPHERAL PULSES: equal. NEUROLOGIC: No gross deficits, AAO X 3 Assessment & Plan Assessment & Plan (1) Bradycardia: Code(s): R00.1 - Bradycardia, unspecified (2) Hypertension: Code(s): I10 - Essential (primary) hypertension Plan Pleasant 2-year-old female who is here for follow-up. Blood pressure control is good. Hyperkalemia and verapamil led to bradycardic episode in the hospital. She has been off verapamil at this stage. Heart rate is normal and she has no symptoms. She can see us back in 6 months. Thank you for allowing me to participate in the care of your patient. Please feel free to contact me if you have any questions. Coding Level of Care Code Est Pt Level 3 (90665) Diagnoses Bradycardia R00.1 Hypertension I10
== END 2023-01-22 14:39 | disposition home or self-care (01) ==
PROVIDERS: PCP Student in an Organized Health Care Education/Training Program; Referring Provider Student in an Organized Health Care Education/Training Program; Visit Provider Internal Medicine Cardiovascular Disease
DX: R00.1 Bradycardia, unspecified (principal); I10 Essential (primary) hypertension
CPT/HCPCS: 99213

== ENCOUNTER → 2023-01-22 14:06 | Outpatient (BNVA) | payer OTHER, SELFPAY | PROVIDERS: PCP Student in an Organized Health Care Education/Training Program; Referring Provider Student in an Organized Health Care Education/Training Program; Visit Provider Internal Medicine Cardiovascular Disease | DX: R00.1 Bradycardia, unspecified (principal); I10 Essential (primary) hypertension | CPT/HCPCS: 99212 ==

== ENCOUNTER 2023-02-11 16:26 | Emergency (ER) | payer OTHER, SELFPAY ==
--- NOTE | ~2023-02-11 | US_ITS ---
EXAMINATION: US GALLBLADDER CLINICAL INFORMATION: Right upper quadrant and epigastric pain. COMPARISON: None available. TECHNIQUE: Real-time imaging of the gallbladder only. FINDINGS: GALLBLADDER: Visualization is limited due to body habitus. The gallbladder appears physiologically distended without evidence of stones, sludge, polyps, wall thickening or pericholecystic fluid seen. According to the client care consultant, the patient was tender over the gallbladder. COMMON BILE DUCT: Normal in caliber measuring 0.6 cm in diameter. US/US abdomen limited IMPRESSION: Limited study due to body habitus. The gallbladder appears physiologically distended without evidence of stones, sludge, wall thickening or pericholecystic fluid. According to the client care consultant, the patient was tender over the gallbladder.
[2023-02-11 16:47] VITALS: BP 125/62; PULSE 104; RESP 18; TEMP 36.8; O2SAT 97; BMI 27.2
--- NOTE | 2023-02-11 16:47 | ED.GENADULT ---
HPI - General Adult General Chief complaint: Abdominal Pain Stated complaint: Low blood sugar, nausea Related Data Home Medications Medication Instructions Recorded Confirmed aspirin 81 mg tablet,delayed 81 mg PO DAILY 12/11/22 01/22/23 release atorvastatin 20 mg tablet 20 mg PO DAILY 12/11/22 01/22/23 furosemide 20 mg tablet 20 mg PO DAILY 12/11/22 01/22/23 insulin aspart U-100 100 unit/mL 5 unit subcut TID 12/11/22 01/22/23 (3 mL) subcutaneous pen (Novolog FlexPen U-100 Insulin aspart) insulin glargine 100 unit/mL (3 10 unit subcut DAILY 12/11/22 01/22/23 mL) subcutaneous pen (Lantus Solostar U-100 Insulin) losartan 25 mg tablet 25 mg PO DAILY 12/11/22 01/22/23 dulaglutide 0.75 mg/0.5 mL mg subcut 01/22/23 01/22/23 subcutaneous pen injector (Trulicity) levothyroxine 25 mcg capsule 25 mcg PO DAILY 01/22/23 01/22/23 Previous Rx's Medication Instructions Recorded amlodipine 5 mg tablet (Norvasc) 5 mg PO DAILY #30 tabs 12/13/22 Allergies Allergy/AdvReac Type Severity Reaction Status Date / Time No Known Allergies Allergy Verified 01/22/23 14:24 [facility] Past Medical History Medical History (Updated 02/15/23 @ 14:48 by LESTER Brito) Nonproliferative diabetic retinopathy CHANEL (obstructive sleep apnea) Osteopenia Insulin dependent type 2 diabetes mellitus Hemiparesis affecting left side as late effect of cerebrovascular accident History of CVA (cerebrovascular accident) Hyperosmolar hyperglycemic state (HHS) Hyperlipidemia Hypertension CKD (chronic kidney disease), stage III Surgical History (Updated 01/22/23 @ 14:27 by MARIAN Alberts) No pertinent past surgical history Social History Social History Household Members: Family and Children Housing: Apartment Do you presently have visiting nurse or other home services: Yes Alcohol intake: never Patient Tobacco Use Status: Never used Tobacco Advance Directives: No Advance Directives Information Provided: No service: No Physical Exam ED Vital Signs: BMI result Body Mass Index 27.2 Course Course Course Narrative: This is an RME: Additional HPI, ROS, PE not included below will be deferred to primary provider. This is a [id number], with a hx of CKD, hypertension, hyperlipidemia, history of CVA with sequela left-sided hemiparesis, insulin-dependent type 2 diabetes, nonproliferative diabetic retinopathy, CHANEL noncompliant with CPAP, and osteopenia with complaints of abdominal pain since this afternoon. Endorsing nausea and vomiting. Recently admitted for [facility] with ILYA and hyperkalemia on 12/11/2022. Tenderness to palpation in the epigastrium and right upper quadrant Plan: Labs, UA, ultrasound Pt left without completing treatment prior to results returning. Medical Decision Making Lab Data 02/11/23 17:53 02/11/23 17:53 Labs: Lab Results 02/11/23 Range/Units 17:53 WBC 10.1 (4.8-10.8) X10*3/uL RBC 4.66 D (4.20-5.50) X10*6/uL Hgb 13.5 D (12.0-16.0) g/dl Hct 41.6 D (37.0-47.0) % MCV 89.3 (80.0-98.0) fL MCH 29.0 (27.0-33.0) pg MCHC 32.5 (31.0-35.0) g/dl RDW 14.0 (11.0-16.0) % Plt Count 161 (160-400) X10*3/uL MPV 11.6 (9.4-12.3) fL Immature Gran % (Auto) 0.3 (0.0-0.4) % Neut % (Auto) 86.6 H (45-73) % Lymph % (Auto) 9.1 L (20-40) % [place] % (Auto) 3.3 (2-11) % Eos % (Auto) 0.6 (0-4) % Baso % (Auto) 0.1 (0-2) % Lymph # (Auto) 0.9 L (1.2-4.9) X10*3/uL [place] # (Auto) 0.3 (0.1-1.2) X10*3/uL Eos # (Auto) 0.1 (0.0-0.4) X10*3/uL Baso # (Auto) 0.0 (0.0-0.2) X10*3/uL Abs Immat Gran (auto) 0.03 (0.00-0.03) X10*3/uL Absolute Neuts (auto) 8.7 H (2.0-8.3) x10*3/uL Absolute Nucleated RBC 0.000 (0.0-0.012) X10*3/uL Nucleated RBC % (auto) 0.0 (0.0-0.2) /100WBC Sodium 142 (135-145) mmol/L Potassium 5.0 (3.3-5.1) mmol/L Chloride 106 (96-108) mmol/L Carbon Dioxide 23 (22-29) mmol/L Anion Gap 18 (12-20) BUN 52 H (9-16) mg/dL Creatinine 2.04 H (0.5-1.4) mg/dL Estim Creat Clear Calc 18.4 Estimated GFR 24 Random Glucose 116 H (60-115) mg/dL Calcium 10.9 H D (8.4-10.2) mg/dL Magnesium 2.4 (1.6-2.6) mg/dL Total Bilirubin 0.5 (0.0-1.0) mg/dL Direct Bilirubin 0.2 (0.0-0.5) mg/dL AST 31 (5-31) U/L ALT 31 (0-31) U/L Alkaline Phosphatase 151 H (39-117) U/L Troponin I High Sens 18.2 H (<3.5-17.0) ng/L Total Protein 9.4 H (6.5-8.0) g/dL Albumin 4.6 (3.5-5.0) g/dL Lipase 20 (8-78) U/L Discharge Plan Discharge Clinical Impression: Abdominal pain Patient Disposition: Left W/O Completing Treatment Prescriptions: No Action atorvastatin 20 mg tablet 20 mg PO DAILY aspirin 81 mg tablet,delayed release (DR/EC) 81 mg PO DAILY losartan 25 mg tablet 25 mg PO DAILY furosemide 20 mg tablet 20 mg PO DAILY insulin aspart U-100 [Novolog FlexPen U-100 Insulin] 100 unit/mL (3 mL) insulin pen 5 unit SUBCUT TID insulin glargine [Lantus Solostar U-100 Insulin] 100 unit/mL (3 mL) insulin pen 10 unit SUBCUT DAILY amlodipine [Norvasc] 5 mg tablet 5 mg PO DAILY Qty: 30 0RF levothyroxine 25 mcg capsule 25 mcg PO DAILY Trulicity 0.75 mg/0.5 mL pen injector subcut Discharge Date/Time: 02/11/23 21:57
[2023-02-11 18:08] LABS: MANUAL DIFF FLAG NO
[2023-02-11 18:11] LABS: Basophils Percent Auto 0.1 % (0-2); Eosinophils Absolute Auto 0.1 X10*3/uL (0.0-0.4); Eosinophils Percent Auto 0.6 % (0-4); Hematocrit 41.6 % (37.0-47.0); Hemoglobin 13.5 g/dl (12.0-16.0); Imm Gran Abs Auto 0.03 X10*3/uL (0.00-0.03); Imm Gran Pct Auto 0.3 % (0.0-0.4); Lymphocytes Absolute Auto 0.9 X10*3/uL (1.2-4.9); Lymphocytes Percent Auto 9.1 % (20-40); Mean Corpuscular HGB Conc 32.5 g/dl (31.0-35.0); Mean Corpuscular Volume 89.3 fL (80.0-98.0); Mean Platelet Volume 11.6 fL (9.4-12.3); Monocytes Absolute Auto 0.3 X10*3/uL (0.1-1.2); Monocytes Percent Auto 3.3 % (2-11); Neutrophils Absolute Auto 8.7 x10*3/uL (2.0-8.3); Neutrophils Percent Auto 86.6 % (45-73); Platelet Count 161 X10*3/uL (160-400); Red Blood Count 4.66 X10*6/uL (4.20-5.50); White Blood Count 10.1 X10*3/uL (4.8-10.8)
[2023-02-11 18:28] LABS: Alanine Aminotransferase 31 U/L (0-31); Albumin Level 4.6 g/dL (3.5-5.0); Alkaline Phosphatase 151 U/L (39-117); Anion Gap 18 (12-20); Aspartate Amino Transferase 31 U/L (5-31); Bilirubin Direct 0.2 mg/dL (0.0-0.5); Bilirubin Total 0.5 mg/dL (0.0-1.0); Blood Urea Nitrogen 52 mg/dL (9-16); Calcium 10.9 mg/dL (8.4-10.2); Carbon Dioxide 23 mmol/L (22-29); Chloride 106 mmol/L (96-108); Creatinine Clr Calc Pharmacy 18.4; Estimated Glomerular Filt Rate 24; Glucose Random 116 mg/dL (60-115); Lipase 20 U/L (8-78); Magnesium 2.4 mg/dL (1.6-2.6); Sodium 142 mmol/L (135-145); Total Protein 9.4 g/dL (6.5-8.0)
[2023-02-11 18:35] LABS: Troponin-I High Sensitivity 18.2 ng/L (<3.5-17.0)
== END 2023-02-11 21:57 | disposition left against medical advice (07) ==
PROVIDERS: Physician Assistant Medical; Emergency Provider Emergency Medicine
DX: R10.9 Unspecified abdominal pain (principal); E11.22 Type 2 diabetes mellitus with diabetic chronic kidney disease; I13.0 Hypertensive heart and chronic kidney disease with heart failure and stage 1 through stage 4 chronic kidney disease, or unspecified chronic kidney disease; N18.30 Chronic kidney disease, stage 3 unspecified; I50.9 Heart failure, unspecified; Z79.82 Long term (current) use of aspirin; Z79.4 Long term (current) use of insulin; Z79.899 Other long term (current) drug therapy
CPT/HCPCS: 36415; 76705; 80048; 80076; 83690; 83735; 84484; 85025; 99281; 99284

== ENCOUNTER 2023-06-02 10:06 | Emergency (ER) | payer OTHER, SELFPAY ==
[2023-06-02 10:43] VITALS: BP 129/60; PULSE 95; RESP 17; TEMP 37.2; O2SAT 97; BMI 25.4
[2023-06-02 11:09] LABS: MANUAL DIFF FLAG NO
[2023-06-02 11:11] LABS: Basophils Percent Auto 0.2 % (0-2); Eosinophils Absolute Auto 0.1 X10*3/uL (0.0-0.4); Eosinophils Percent Auto 1.3 % (0-4); Hematocrit 36.5 % (37.0-47.0); Hemoglobin 12.2 g/dl (12.0-16.0); Imm Gran Abs Auto 0.03 X10*3/uL (0.00-0.03); Imm Gran Pct Auto 0.3 % (0.0-0.4); Lymphocytes Absolute Auto 2.8 X10*3/uL (1.2-4.9); Lymphocytes Percent Auto 28.6 % (20-40); Mean Corpuscular HGB Conc 33.4 g/dl (31.0-35.0); Mean Corpuscular Hemoglobin 29.4 pg (27.0-33.0); Mean Platelet Volume 12.2 fL (9.4-12.3); Monocytes Absolute Auto 0.7 X10*3/uL (0.1-1.2); Monocytes Percent Auto 7.1 % (2-11); Neutrophils Absolute Auto 6.1 x10*3/uL (2.0-8.3); Neutrophils Percent Auto 62.5 % (45-73); Platelet Count 141 X10*3/uL (160-400); Red Blood Count 4.15 X10*6/uL (4.20-5.50); Red Cell Distribution Width 13.5 % (11.0-16.0); White Blood Count 9.8 X10*3/uL (4.8-10.8)
[2023-06-02 11:12] LABS: Appearance Urine Clear; Color Urine Yellow; Glucose Urine UA Negative (Negative); Leukocyte Esterase Urine Trace (Negative); Nitrite Urine Negative (Negative); PH 5.5 (5.0-9.0); Specific Gravity - Urine 1.015 (1.005-1.025); UMIC TRIGGER UACC YES; Urine Blood Negative (Negative); Urine Ketones Negative (Negative); Urine Protein Negative (Neg-Trace)
[2023-06-02 11:17] LABS: Bacteria Urine None Seen (None Seen); Hyaline Casts Urine 0-2 /LPF (0-2); RBC Urine 0-2 /HPF (0-2); Squamous Epithelial Cell Urine 0-2 /HPF (0-2); WBC Urine 0-5 /HPF (0-5)
[2023-06-02 11:25] LABS: Alanine Aminotransferase 31 U/L (0-31); Albumin Level 4.2 g/dL (3.5-5.0); Alkaline Phosphatase 161 U/L (39-117); Anion Gap 16 (12-20); Aspartate Amino Transferase 32 U/L (5-31); Bilirubin Total 0.4 mg/dL (0.0-1.0); Blood Urea Nitrogen 43 mg/dL (9-16); Calcium 10.6 mg/dL (8.4-10.2); Carbon Dioxide 27 mmol/L (22-29); Chloride 103 mmol/L (96-108); Creatinine Clr Calc Pharmacy 18.9; Estimated Glomerular Filt Rate 26; Glucose Random 190 mg/dL (60-115); Potassium 3.8 mmol/L (3.3-5.1); Sodium 142 mmol/L (135-145); Total Protein 8.8 g/dL (6.5-8.0)
[2023-06-02 16:48] LABS: Influenza A PCR NEGATIVE (Negative); Influenza B PCR NEGATIVE (Negative); Resp Syncy Virus RNA Qual PCR NEGATIVE (Negative); SARS COV2 PCR INHOUSE NEGATIVE (Negative)
== END 2023-06-02 16:55 | disposition left against medical advice (07) ==
PROVIDERS: Physician Assistant Medical; Emergency Provider Emergency Medicine
DX: M54.50 Low back pain, unspecified (principal); Z79.899 Other long term (current) drug therapy; Z20.822 Contact with and (suspected) exposure to COVID-19; Z20.828 Contact with and (suspected) exposure to other viral communicable diseases
CPT/HCPCS: 0241U; 36415; 80053; 81001; 85025; 99282; 99283

== ENCOUNTER 2023-07-24 22:01 | Emergency (ER) | payer OTHER, SELFPAY ==
[2023-07-24 22:13] VITALS: BP 140/67; PULSE 86; RESP 16; TEMP 36.4; O2SAT 98; BMI 25.2
[2023-07-24 22:29] LABS: Glucose, Whole Blood 361 mg/dL (60-115)
[2023-07-24 22:49] LABS: MANUAL DIFF FLAG NO
[2023-07-24 22:50] LABS: Basophils Percent Auto 0.3 % (0-2); Eosinophils Absolute Auto 0.1 X10*3/uL (0.0-0.4); Eosinophils Percent Auto 2.2 % (0-4); Hematocrit 33.5 % (37.0-47.0); Hemoglobin 11.2 g/dl (12.0-16.0); Imm Gran Abs Auto 0.01 X10*3/uL (0.00-0.03); Imm Gran Pct Auto 0.2 % (0.0-0.4); Lymphocytes Absolute Auto 2.4 X10*3/uL (1.2-4.9); Lymphocytes Percent Auto 39.6 % (20-40); Mean Corpuscular HGB Conc 33.4 g/dl (31.0-35.0); Mean Corpuscular Volume 86.8 fL (80.0-98.0); Monocytes Absolute Auto 0.4 X10*3/uL (0.1-1.2); Monocytes Percent Auto 6.7 % (2-11); Neutrophils Absolute Auto 3.1 x10*3/uL (2.0-8.3); Platelet Count 140 X10*3/uL (160-400); Red Blood Count 3.86 X10*6/uL (4.20-5.50); Red Cell Distribution Width 13.9 % (11.0-16.0)
[2023-07-24 23:08] LABS: Alanine Aminotransferase 32 U/L (0-31); Alkaline Phosphatase 195 U/L (39-117); Anion Gap 15 (12-20); Aspartate Amino Transferase 31 U/L (5-31); Beta-Hydroxybutyrate 0.05 mmol/L (0.02-0.27); Bilirubin Total 0.3 mg/dL (0.0-1.0); Blood Urea Nitrogen 45 mg/dL (9-16); Carbon Dioxide 29 mmol/L (22-29); Chloride 101 mmol/L (96-108); Creatinine Clr Calc Pharmacy 17.9; Estimated Glomerular Filt Rate 24; Glucose Random 348 mg/dL (60-115); Potassium 4.2 mmol/L (3.3-5.1); Sodium 141 mmol/L (135-145); Total Protein 8.5 g/dL (6.5-8.0)
[2023-07-25 01:07] VITALS: BP 163/56; PULSE 75; RESP 17; TEMP 36.7; O2SAT 98
[2023-07-25 03:44] LABS: Glucose, Whole Blood 247 mg/dL (60-115)
--- NOTE | 2023-07-25 03:57 | ED_ITS ---
HPI - General Adult General Chief complaint: General Medical Stated complaint: high blood sugar Time Seen by Provider: 07/25/23 03:31 Source: patient and family (Daughter) Mode of arrival: ambulatory History of Present Illness HPI narrative: 72-year-old female who had rice and beans for dinner and then daughter became concerned because her sensor was reading over 400 proximally 2100 this evening. The daughter states that the diabetic pills were recently changed to insulin and she did administer 6 units of insulin to her mother prior to arrival. Patient has no other complaints and denies fever, chills, GI or symptoms. Related Data Home Medications Medication Instructions Recorded Confirmed aspirin 81 mg tablet,delayed 81 mg PO DAILY 12/11/22 01/22/23 release atorvastatin 20 mg tablet 20 mg PO DAILY 12/11/22 01/22/23 furosemide 20 mg tablet 20 mg PO DAILY 12/11/22 01/22/23 insulin aspart U-100 100 unit/mL 5 unit subcut TID 12/11/22 01/22/23 (3 mL) subcutaneous pen (Novolog FlexPen U-100 Insulin aspart) insulin glargine 100 unit/mL (3 10 unit subcut DAILY 12/11/22 01/22/23 mL) subcutaneous pen (Lantus Solostar U-100 Insulin) losartan 25 mg tablet 25 mg PO DAILY 12/11/22 01/22/23 dulaglutide 0.75 mg/0.5 mL mg subcut 01/22/23 01/22/23 subcutaneous pen injector (Trulicity) levothyroxine 25 mcg capsule 25 mcg PO DAILY 01/22/23 01/22/23 Previous Rx's Medication Instructions Recorded amlodipine 5 mg tablet (Norvasc) 5 mg PO DAILY #30 tabs 12/13/22 Allergies Allergy/AdvReac Type Severity Reaction Status Date / Time No Known Allergies Allergy Verified 01/22/23 14:24 Review of Systems 2 Review of Systems: Pertinent positives and negatives as stated in HPI [facility] Past Medical History Source: nursing notes reviewed Medical History Nonproliferative diabetic retinopathy CHANEL (obstructive sleep apnea) Osteopenia Insulin dependent type 2 diabetes mellitus Hemiparesis affecting left side as late effect of cerebrovascular accident History of CVA (cerebrovascular accident) Hyperosmolar hyperglycemic state (HHS) Hyperlipidemia Hypertension CKD (chronic kidney disease), stage III Surgical History No pertinent past surgical history Social History Social History Household Members: Family and Children Housing: Apartment Do you presently have visiting nurse or other home services: Yes Alcohol intake: never Patient Tobacco Use Status: Never used Tobacco Advance Directives: No Advance Directives Information Provided: No service: No Physical Exam ED Vital Signs: Vital Signs - 24 hr 07/24/23 22:13 07/25/23 01:07 Temperature 97.6 F 98.0 F Pulse Rate 86 75 Respiratory Rate 16 17 Blood Pressure 140/67 H 163/56 H Pulse Oximetry 98 98 Oxygen Delivery Method Room Air Room Air BMI result Body Mass Index 25.2 VITAL SIGNS: Reviewed. GENERAL: Well developed, well nourished, in no acute distress. HEAD: Normocephalic/atraumatic EYES: PERRLA, EOMI EARS: Ext canals without abnormality NOSE: Nares patent bilateral OROPHARYNX: no oral lesions noted, posterior pharynx clear NECK: Supple, no adenopathy LUNGS: Normal breath sounds. No adventitious sounds or accessory muscle use. SpO2<98> CARDIOVASCULAR: Regular rate and rhythm without noted murmurs ABDOMEN: Soft, non-tender, non-distended with bowel sounds. MUSCULOSKELETAL: No tenderness, deformities, or effusions noted on gross inspection. EXTREMITIES: No cyanosis, clubbing or edema. SKIN: Inspection of the skin reveals no rashes NEUROLOGIC: Alert and oriented x 3. Strength and sensation to light touch were grossly intact x 4. Medical Decision Making Medical Decision Making MDM Narrative: 72-year-old female with history and clinical presentation consistent with hyperglycemia related to underlying diabetes and likely poor dietary control. Patient did receive 6 units of insulin prior to leaving the house and has no other complaints to suggest occult infection. I reviewed all investigations and hematologic indices are negative for leukocytosis or left shift, there is a stable thrombocytopenia and a normocytic anemia that is stable. Chemistry indices demonstrate chronically stable CKD and otherwise no electrolyte or liver enzyme derangements, there is a noted hyperglycemia without evidence of DKA or HHS. On repeat glucose evaluation it has significantly improved, patient has no other complaints and is otherwise discharged home with instructions to follow-up with her primary care doctor to further discuss insulin regimen. Differential Diagnosis Differential Diagnoses: The differential diagnosis associated with the presentation includes Please see the discussion above Admission/Observation Consideration of admission/observation: Escalation of care including admission/observation considered Please see the discussion above Lab Data MDM Lab Attestation statement: I reviewed the patient's lab results. Please see the discussion above 07/24/23 22:44 07/24/23 22:44 Labs: Lab Results 07/24/23 07/24/23 07/25/23 Range/Units 22:20 22:44 03:40 WBC 6.0 (4.8-10.8) X10*3/uL RBC 3.86 L (4.20-5.50) X10*6/uL Hgb 11.2 L (12.0-16.0) g/dl Hct 33.5 L (37.0-47.0) % MCV 86.8 (80.0-98.0) fL MCH 29.0 (27.0-33.0) pg MCHC 33.4 (31.0-35.0) g/dl RDW 13.9 (11.0-16.0) % Plt Count 140 L (160-400) X10*3/uL MPV 12.0 (9.4-12.3) fL Immature Gran % (Auto) 0.2 (0.0-0.4) % Neut % (Auto) 51.0 (45-73) % Lymph % (Auto) 39.6 (20-40) % [place] % (Auto) 6.7 (2-11) % Eos % (Auto) 2.2 (0-4) % Baso % (Auto) 0.3 (0-2) % Lymph # (Auto) 2.4 (1.2-4.9) X10*3/uL [place] # (Auto) 0.4 (0.1-1.2) X10*3/uL Eos # (Auto) 0.1 (0.0-0.4) X10*3/uL Baso # (Auto) 0.0 (0.0-0.2) X10*3/uL Abs Immat Gran (auto) 0.01 (0.00-0.03) X10*3/uL Absolute Neuts (auto) 3.1 (2.0-8.3) x10*3/uL Absolute Nucleated RBC 0.000 (0.0-0.012) X10*3/uL Nucleated RBC % (auto) 0.0 (0.0-0.2) /100WBC Sodium 141 (135-145) mmol/L Potassium 4.2 (3.3-5.1) mmol/L Chloride 101 (96-108) mmol/L Carbon Dioxide 29 (22-29) mmol/L Anion Gap 15 (12-20) BUN 45 H (9-16) mg/dL Creatinine 2.02 H (0.5-1.4) mg/dL Estim Creat Clear Calc 17.9 Estimated GFR 24 POC Glucose 361 H* 247 H (60-115) mg/dL Random Glucose 348 H (60-115) mg/dL Calcium 10.0 (8.4-10.2) mg/dL Total Bilirubin 0.3 (0.0-1.0) mg/dL AST 31 (5-31) U/L ALT 32 H (0-31) U/L Alkaline Phosphatase 195 H (39-117) U/L Total Protein 8.5 H (6.5-8.0) g/dL Albumin 4.0 (3.5-5.0) g/dL Beta-Hydroxybutyrate 0.05 (0.02-0.27) mmol/L External Record Review External record reviewed: Outpatient record, Prior outpatient labs and Prior outpatient radiology Chronic Conditions Patient?s care impacted by: Diabetes and Hypertension Critical Care Time Critical Care Time Critical Care Time: Yes Total Critical Care Time: 30 Attestation: I personally attest to this time spent taking care of the patient. Discharge Plan Discharge Clinical Impression: Hyperglycemia due to diabetes mellitus Patient Disposition: Home, Self-Care Instructions: Diabetic Hyperglycemia (ED) Additional Instructions: 1. Reanudar todos los medicamentos caseros seg?n lo recetado. 2. [place] un seguimiento con talamantes m?dico de atenci?n primaria hoy y programe merlene ritika para merlene reevaluaci?n y merlene discusi?n m?s detallada sobre los niveles de glucosa y la prescripci?n de insulina. Regrese a la kush de emergencias si los s?ntomas empeoran. 1. Resume all home medications as prescribed. 2. Please follow-up with primary care doctor today and set up an appointment for re-evaluation and further discussion regarding the glucose levels and insulin prescription. Return to the ER for any worsening symptoms. Prescriptions: No Action atorvastatin 20 mg tablet 20 mg PO DAILY aspirin 81 mg tablet,delayed release (DR/EC) 81 mg PO DAILY losartan 25 mg tablet 25 mg PO DAILY furosemide 20 mg tablet 20 mg PO DAILY insulin aspart U-100 [Novolog FlexPen U-100 Insulin] 100 unit/mL (3 mL) insulin pen 5 unit SUBCUT TID insulin glargine [Lantus Solostar U-100 Insulin] 100 unit/mL (3 mL) insulin pen 10 unit SUBCUT DAILY amlodipine [Norvasc] 5 mg tablet 5 mg PO DAILY Qty: 30 0RF levothyroxine 25 mcg capsule 25 mcg PO DAILY Trulicity 0.75 mg/0.5 mL pen injector subcut Interventions: ED Discharge Assessment Last Done: 07/25/23 04:07 Discharge Date/Time: 07/25/23 04:08 Print Language: Chilean
== END 2023-07-25 04:08 | disposition home or self-care (01) ==
PROVIDERS: Emergency Provider Student in an Organized Health Care Education/Training Program
DX: E11.65 Type 2 diabetes mellitus with hyperglycemia (principal); I69.954 Hemiplegia and hemiparesis following unspecified cerebrovascular disease affecting left non-dominant side; I12.9 Hypertensive chronic kidney disease with stage 1 through stage 4 chronic kidney disease, or unspecified chronic kidney disease; E11.22 Type 2 diabetes mellitus with diabetic chronic kidney disease; N18.30 Chronic kidney disease, stage 3 unspecified; Z79.4 Long term (current) use of insulin
CPT/HCPCS: 36415; 80053; 82010; 82947; 85025; 99283

== ENCOUNTER 2023-07-29 09:09 | Outpatient (AMB) | payer OTHER, SELFPAY ==
[2023-07-29 09:16] VITALS: BP 130/64; PULSE 76; BMI 24.9
--- NOTE | 2023-07-29 09:16 | MHC.OFFVIS ---
Intake Vital Signs 07/29/23 09:16 Height 4 ft 10 in Weight 119 lb 0.794 oz BMI 24.9 BP 130/64 Blood Pressure Location Lt brachial Position Sitting Pulse 76 Pulse Source Pulse Oximeter Intake Visit Reasons: 6 mn f/up Software Engineer Mobile Required: No Printer Technician: Printer Technician Present Allergies No Known Allergies Allergy (Verified 07/29/23 09:18) Medication List - Last Reconciled 07/29/23 by Elizabeth Valencia, ETHAN-C aspirin 81 mg PO DAILY atorvastatin 40 mg PO DAILY dulaglutide (Trulicity) mg subcut furosemide 20 mg PO DAILY insulin aspart U-100 (Novolog FlexPen U-100 Insulin aspart) 5 units subcut TID insulin glargine (Lantus Solostar U-100 Insulin) 10 units subcut DAILY levothyroxine 25 mcg PO DAILY losartan 25 mg PO DAILY HPI 6 mn f/up HPI Details Eliza is a 72-year-old female past medical history of hypertension, hyperlipidemia, diabetes, sleep apnea, CKD who was previously treated for bradycardia. This occurred in the setting hyperkalemia and verapamil use. Her potassium was corrected and verapamil stopped. Today she presents for follow-up. Today she states she has been feeling well since her last visit in December. She has not had any issues with lightheadedness, presyncope, syncope, falls. She denies chest discomfort at rest or with activity. No shortness of breath, PND, orthopnea or edema. She does light physical activities around the house. No routine exercise. Takes all meds as directed. Granddaughter is present. [facility] Medical History Nonproliferative diabetic retinopathy CHANEL (obstructive sleep apnea) Osteopenia Insulin dependent type 2 diabetes mellitus Hemiparesis affecting left side as late effect of cerebrovascular accident History of CVA (cerebrovascular accident) Hyperosmolar hyperglycemic state (HHS) Hyperlipidemia Hypertension CKD (chronic kidney disease), stage III Surgical History No pertinent past surgical history Social History Household Members: Family and Children Housing: Apartment Do you presently have visiting nurse or other home services: Yes Alcohol intake: never Patient Tobacco Use Status: Never used Tobacco service: No Review of Systems Const All systems reviewed & are unremarkable except as noted in HPI and below ENT Denies dizziness Card Denies chest pain, Denies chest pain at rest, Denies chest pain with activity, Denies rapid heart rate, Denies pedal edema, Denies edema, Denies leg edema, Denies lightheadedness, Denies palpitations, Denies dyspnea, Denies dyspnea on exertion and Denies orthopnea Resp Denies cough, Denies dyspnea and Denies dyspnea on exertion GI Denies hematochezia and Denies change in stool character Musc Denies abnormal gait, Denies limited range of motion, Denies muscle cramps, Denies muscle weakness, Denies numbness, Denies radiating pain into limb, Denies stiffness and Denies tingling Neuro Denies abnormal gait, Denies dizziness, Denies numbness and Denies tingling Endo Denies palpitations Physical Exam Vital Signs: Last Vital Signs Pulse 76 07/29/23 09:16 BP 130/64 07/29/23 09:16 BMI result Body Mass Index 24.9 Const General: cooperative, healthy appearing, comfortable and no acute distress Orientation/consciousness: patient oriented x3 Neck Neck: Yes normal visual inspection and Yes no JVD Resp Effort & Inspection: normal respiratory effort Auscultation: clear to auscultation bilaterally, no crackles, no rales, no rhonchi and no wheezes Cardio Jugular venous distension: no JVD Rate: regular rate Rhythm: regular rhythm Heart sounds: S1 normal heart sound present, S2 normal heart sound present, no murmurs and no rubs Neuro General: patient oriented x3 Extrem General: Yes normal to inspection and No no pedal edema Psych Appearance: grossly normal Mental Status: mental status grossly normal Speech and movement: Normal speech and movement present Assessment & Plan Assessment & Plan (1) Bradycardia: Code(s): R00.1 - Bradycardia, unspecified Plan: [place] [facility] [place] and had hyperkalemia with bradycardia. She was also on verapamil. Her potassium was corrected and verapamil was stopped. Her bradycardia improved. She remains off all rate slowing agents. Her pulse is in the normal range today. She denies any lightheadedness, presyncope, syncope, fatigue. Will continue to follow. Cardiology follow-up in 1 year, sooner if needed (2) Hypertension: Code(s): I10 - Essential (primary) hypertension Plan: Well controlled at present time. Would continue her current medications including losartan and Lasix. Plan Time spent on chart review, documentation, interview and assessment Coding Level of Care Code Est Pt Level 3 (41446) Diagnoses Bradycardia R00.1 Hypertension I10 Time Spent (min) 22
== END 2023-07-29 09:48 | disposition home or self-care (01) ==
PROVIDERS: Visit Provider Nurse Practitioner Family
DX: R00.1 Bradycardia, unspecified (principal); I10 Essential (primary) hypertension
CPT/HCPCS: 99213

== ENCOUNTER → 2023-07-29 09:09 | Outpatient (BNVA) | payer OTHER, SELFPAY | PROVIDERS: Visit Provider Nurse Practitioner Family | DX: R00.1 Bradycardia, unspecified (principal); I10 Essential (primary) hypertension | CPT/HCPCS: 99212 ==

== ENCOUNTER 2023-09-05 22:52 | Emergency (ER) | payer OTHER, SELFPAY ==
--- NOTE | 2023-09-05 | ECG_ITS ---
Test Reason : CHEST PAIN Blood Pressure : / mmHG Vent. Rate : 082 BPM Atrial Rate : 082 BPM P-R Int : 136 ms QRS Dur : 074 ms QT Int : 390 ms P-R-T Axes : 039 -15 049 degrees QTc Int : 455 ms Normal sinus rhythm Normal ECG When compared with ECG of 11-DEC-2022 08:41, Sinus rhythm has replaced Junctional rhythm Vent. rate has increased BY 32 BPM Referred By: Generic ED Physician Electronically Signed By:Tam Vasquez
--- NOTE | ~2023-09-05 | XR_ITS ---
EXAMINATION: XR CHEST CLINICAL INFORMATION: Chest pain. COMPARISON: 12/11/2022. TECHNIQUE: Frontal view of the chest was obtained. FINDINGS: The cardiomediastinal silhouette is within normal limits and stable. There is no focal lung consolidation or pleural effusion. Old right-sided rib fractures are again noted. The soft tissues are unremarkable. XR/XR chest 1V IMPRESSION: No active cardiopulmonary disease.
[2023-09-05 23:23] VITALS: BP 153/68; PULSE 88; RESP 20; TEMP 36.6; O2SAT 97; BMI 25.1
[2023-09-05 23:48] LABS: MANUAL DIFF FLAG NO
[2023-09-05 23:49] LABS: Basophils Percent Auto 0.3 % (0-2); Eosinophils Absolute Auto 0.1 X10*3/uL (0.0-0.4); Eosinophils Percent Auto 1.2 % (0-4); Hematocrit 31.9 % (37.0-47.0); Hemoglobin 10.5 g/dl (12.0-16.0); Imm Gran Abs Auto 0.03 X10*3/uL (0.00-0.03); Imm Gran Pct Auto 0.3 % (0.0-0.4); Lymphocytes Absolute Auto 2.9 X10*3/uL (1.2-4.9); Lymphocytes Percent Auto 32.3 % (20-40); Mean Corpuscular HGB Conc 32.9 g/dl (31.0-35.0); Mean Corpuscular Hemoglobin 28.3 pg (27.0-33.0); Monocytes Absolute Auto 0.6 X10*3/uL (0.1-1.2); Monocytes Percent Auto 6.3 % (2-11); Neutrophils Absolute Auto 5.3 x10*3/uL (2.0-8.3); Neutrophils Percent Auto 59.6 % (45-73); Platelet Count 187 X10*3/uL (160-400); Red Blood Count 3.71 X10*6/uL (4.20-5.50); Red Cell Distribution Width 14.1 % (11.0-16.0); White Blood Count 8.9 X10*3/uL (4.8-10.8)
[2023-09-06 00:01] LABS: Alanine Aminotransferase 19 U/L (0-31); Albumin Level 3.8 g/dL (3.5-5.0); Alkaline Phosphatase 131 U/L (39-117); Anion Gap 13 (12-20); Aspartate Amino Transferase 26 U/L (5-31); Bilirubin Total 0.3 mg/dL (0.0-1.0); Blood Urea Nitrogen 29 mg/dL (9-16); Calcium 10.1 mg/dL (8.4-10.2); Carbon Dioxide 27 mmol/L (22-29); Chloride 103 mmol/L (96-108); Creatinine Clr Calc Pharmacy 25.5; Estimated Glomerular Filt Rate 37; Glucose Random 176 mg/dL (60-115); Potassium 4.3 mmol/L (3.3-5.1); Sodium 139 mmol/L (135-145); Total Protein 9.3 g/dL (6.5-8.0)
[2023-09-06 00:07] LABS: Troponin-I High Sensitivity 28.7 ng/L (<3.5-17.0)
[2023-09-06 00:14] VITALS: BP 145/51; PULSE 79; RESP 18; TEMP 36.7; O2SAT 96
--- NOTE | 2023-09-06 00:15 | ED_ITS ---
HPI - General Adult General Chief complaint: General Medical Stated complaint: High blood pressure/Headache Time Seen by Provider: 09/06/23 00:01 Source: patient and family Mode of arrival: ambulatory History of Present Illness HPI narrative: 73-year-old female who has a history of hypertension and diabetes is brought in by her daughter with reports of having headache that has occurred ever since patient was started on Trulicity for her blood pressure control. Daughter also states that the blood pressure has not been well controlled and attributes this to the Trulicity as well. The primary care doctor was called today and current recommendations are for the patient to stop the Trulicity but daughter was concerned because blood pressure was elevated and patient had complaints of chest pain but denies any dizziness/shortness of breath/fever/chills/GI or symptoms. Related Data Home Medications ?Medication ?Instructions ?Recorded ?Confirmed aspirin 81 mg tablet,delayed 81 mg PO DAILY 12/11/22 07/29/23 release furosemide 20 mg tablet 20 mg PO DAILY 12/11/22 07/29/23 insulin aspart U-100 100 unit/mL 5 unit subcut TID 12/11/22 07/29/23 (3 mL) subcutaneous pen (Novolog FlexPen U-100 Insulin aspart) insulin glargine 100 unit/mL (3 10 unit subcut DAILY 12/11/22 07/29/23 mL) subcutaneous pen (Lantus Solostar U-100 Insulin) losartan 25 mg tablet 25 mg PO DAILY 12/11/22 07/29/23 dulaglutide 0.75 mg/0.5 mL mg subcut 01/22/23 07/29/23 subcutaneous pen injector (Trulicity) levothyroxine 25 mcg capsule 25 mcg PO DAILY 01/22/23 07/29/23 atorvastatin 40 mg tablet 40 mg PO DAILY 07/29/23 07/29/23 Allergies Allergy/AdvReac Type Severity Reaction Status Date / Time No Known Allergies Allergy Verified 09/05/23 23:32 Review of Systems 2 Review of Systems: Pertinent positives and negatives as stated in HPI [facility] Past Medical History Source: nursing notes reviewed Medical History Nonproliferative diabetic retinopathy CHANEL (obstructive sleep apnea) Osteopenia Insulin dependent type 2 diabetes mellitus Hemiparesis affecting left side as late effect of cerebrovascular accident History of CVA (cerebrovascular accident) Hyperosmolar hyperglycemic state (HHS) Hyperlipidemia Hypertension CKD (chronic kidney disease), stage III Surgical History No pertinent past surgical history Social History Social History Household Members: Family and Children Housing: Apartment Do you presently have visiting nurse or other home services: Yes Alcohol intake: never Patient Tobacco Use Status: Never used Tobacco Smoked in Last 30 Days: No Use of substances other than those prescribed or required for medical reasons: No Advance Directives: No Advance Directives Information Provided: Yes service: No Physical Exam ED Vital Signs: Vital Signs - 24 hr 09/05/23 23:23 09/06/23 00:14 Temperature 97.9 F 98.0 F Pulse Rate 88 79 Respiratory Rate 20 18 Blood Pressure 153/68 H 145/51 H Pulse Oximetry 97 96 Oxygen Delivery Method Room Air Room Air BMI result Body Mass Index 25.1 VITAL SIGNS: Reviewed. GENERAL: Well developed, well nourished, in no acute distress. HEAD: Normocephalic/atraumatic EYES: PERRLA, EOMI EARS: Ext canals without abnormality NOSE: Nares patent bilateral OROPHARYNX: no oral lesions noted, posterior pharynx clear NECK: Supple, no adenopathy LUNGS: Normal breath sounds. No adventitious sounds or accessory muscle use. SpO2<97> CARDIOVASCULAR: Regular rate and rhythm without noted murmurs ABDOMEN: Soft, non-tender, non-distended with bowel sounds. MUSCULOSKELETAL: No tenderness, deformities, or effusions noted on gross inspection. EXTREMITIES: No cyanosis, clubbing or edema. SKIN: Inspection of the skin reveals no rashes NEUROLOGIC: Alert and oriented x 3. Strength and sensation to light touch were grossly intact x 4. Medications Administered Discontinued Medications Generic Name Dose Route Start Last Admin Trade Name Freq PRN Reason Stop Dose Admin Acetaminophen 975 mg 09/06/23 00:15 09/06/23 01:04 Acetaminophen 325 Mg Tablet PO 09/06/23 00:16 975 mg ONCE ONE Administration Medical Decision Making Medical Decision Making MDM Narrative: 73-year-old female with history and clinical presentation, DDX: Medication side effect, general headache, elevated blood pressure I reviewed all investigations and hematologic indices are chronically stable without leukocytosis or left shift and there is no thrombocytopenia but there is a stable normocytic anemia. Chemistry indices negative for ILYA there is no electrolyte derangement, there is an observed elevation in patient's high sensitivity troponin levels which will be repeated, however there are no acute changes on her EKG from baseline. Chest x-ray is negative for infiltrate or venous congestion otherwise my interpretation is in agreement with radiology's impression. Serial troponins flat, no acute changes on EKG no complaints of chest pain at this time. Patient is otherwise discharged home with strict return precautions. Differential Diagnosis Differential Diagnoses: The differential diagnosis associated with the presentation includes Please see the discussion above Admission/Observation Consideration of admission/observation: Escalation of care including admission/observation considered Please see the discussion above Lab Data MDM Lab Attestation statement: I reviewed the patient's lab results. Please see the discussion above 09/05/23 23:39 09/05/23 23:39 Labs: Lab Results 09/05/23 09/06/23 Range/Units 23:39 01:15 WBC 8.9 (4.8-10.8) X10*3/uL RBC 3.71 L (4.20-5.50) X10*6/uL Hgb 10.5 L (12.0-16.0) g/dl Hct 31.9 L (37.0-47.0) % MCV 86.0 (80.0-98.0) fL MCH 28.3 (27.0-33.0) pg MCHC 32.9 (31.0-35.0) g/dl RDW 14.1 (11.0-16.0) % Plt Count 187 D (160-400) X10*3/uL MPV 11.0 (9.4-12.3) fL Immature Gran % (Auto) 0.3 (0.0-0.4) % Neut % (Auto) 59.6 (45-73) % Lymph % (Auto) 32.3 (20-40) % [place] % (Auto) 6.3 (2-11) % Eos % (Auto) 1.2 (0-4) % Baso % (Auto) 0.3 (0-2) % Lymph # (Auto) 2.9 (1.2-4.9) X10*3/uL [place] # (Auto) 0.6 (0.1-1.2) X10*3/uL Eos # (Auto) 0.1 (0.0-0.4) X10*3/uL Baso # (Auto) 0.0 (0.0-0.2) X10*3/uL Abs Immat Gran (auto) 0.03 (0.00-0.03) X10*3/uL Absolute Neuts (auto) 5.3 (2.0-8.3) x10*3/uL Absolute Nucleated RBC 0.000 (0.0-0.012) X10*3/uL Nucleated RBC % (auto) 0.0 (0.0-0.2) /100WBC Sodium 139 (135-145) mmol/L Potassium 4.3 (3.3-5.1) mmol/L Chloride 103 (96-108) mmol/L Carbon Dioxide 27 (22-29) mmol/L Anion Gap 13 (12-20) BUN 29 H (9-16) mg/dL Creatinine 1.39 (0.5-1.4) mg/dL Estim Creat Clear Calc 25.5 Estimated GFR 37 Random Glucose 176 H (60-115) mg/dL Calcium 10.1 (8.4-10.2) mg/dL Total Bilirubin 0.3 (0.0-1.0) mg/dL AST 26 (5-31) U/L ALT 19 (0-31) U/L Alkaline Phosphatase 131 H (39-117) U/L Troponin I High Sens 28.7 H D 25.8 H (<3.5-17.0) ng/L Total Protein 9.3 H (6.5-8.0) g/dL Albumin 3.8 (3.5-5.0) g/dL Independent Interpretation I performed an independent interpretation of an: EKG Interpretation: Normal sinus rhythm, HR-82, no STEMI, ID/QRS/QTC is within normal limits. Radiology Impression Discussion of test interpretation with radiology: I have reviewed the radiologist's reading. Radiologist Impression: Please see the discussion above External Record Review External record reviewed: Outpatient record, Prior outpatient labs and Prior outpatient radiology Chronic Conditions Patient?s care impacted by: Diabetes and Hypertension Critical Care Time Critical Care Time Critical Care Time: Yes Total Critical Care Time: 30 Attestation: I personally attest to this time spent taking care of the patient. Discharge Plan Discharge Clinical Impression: Chest pain, Headache Patient Disposition: Still a Patient Instructions: Chest Pain (ED), General Headache (ED) Additional Instructions: 1. Resume all home medications as prescribed. 2. Follow-up with your primary care doctor on Friday morning. Return to the ER for any worsening of your symptoms, such as headache and chest pain. Prescriptions: No Action aspirin 81 mg tablet,delayed release (DR/EC) 81 mg PO DAILY losartan 25 mg tablet 25 mg PO DAILY furosemide 20 mg tablet 20 mg PO DAILY insulin aspart U-100 [Novolog FlexPen U-100 Insulin] 100 unit/mL (3 mL) insulin pen 5 unit SUBCUT TID insulin glargine [Lantus Solostar U-100 Insulin] 100 unit/mL (3 mL) insulin pen 10 unit SUBCUT DAILY levothyroxine 25 mcg capsule 25 mcg PO DAILY Trulicity 0.75 mg/0.5 mL pen injector subcut atorvastatin 40 mg tablet 40 mg PO DAILY Print Language: Rwandan
[2023-09-06] MEDS: Acetaminophen 325 MG TABLET 975 MG PO (01:04)
[2023-09-06 01:39] LABS: Troponin-I High Sensitivity 25.8 ng/L (<3.5-17.0)
[2023-09-06 01:55] VITALS: BP 136/57; PULSE 76; RESP 16; TEMP 36.6; O2SAT 97
[2023-09-06 02:32] VITALS: BP 136/57; PULSE 76; RESP 16; TEMP 36.6; O2SAT 97
== END 2023-09-06 02:33 | disposition home or self-care (01) ==
PROVIDERS: Emergency Provider Student in an Organized Health Care Education/Training Program
DX: R51.9 Headache, unspecified (principal); R07.9 Chest pain, unspecified; E11.22 Type 2 diabetes mellitus with diabetic chronic kidney disease; I12.9 Hypertensive chronic kidney disease with stage 1 through stage 4 chronic kidney disease, or unspecified chronic kidney disease; N18.30 Chronic kidney disease, stage 3 unspecified; I69.354 Hemiplegia and hemiparesis following cerebral infarction affecting left non-dominant side
CPT/HCPCS: 36415; 71045; 80053; 84484; 85025; 93005; 99283; 99284

== ENCOUNTER → 2023-09-05 23:34 | Outpatient (BNV) | payer OTHER, SELFPAY | PROVIDERS: Emergency Provider Student in an Organized Health Care Education/Training Program; Visit Provider Internal Medicine Cardiovascular Disease | DX: R07.9 Chest pain, unspecified (principal) | CPT/HCPCS: 93010 ==

== ENCOUNTER 2023-11-05 10:13 | Emergency (ER) | payer OTHER, SELFPAY ==
--- NOTE | ~2023-11-05 | XR_ITS ---
EXAMINATION: XR SHOULDER, RIGHT CLINICAL INFORMATION: Limited rom motion and the right shoulder pain COMPARISON: None available. TECHNIQUE: AP external rotation, Grashey, scapular Y, and axillary views of the right shoulder. FINDINGS: There is no evidence of fracture. There is mild narrowing cough glenohumeral joint and there is large spur extending from acromion. Acromioclavicular joint is mildly narrowed. There is spurring of the greater tuberosity of the right shoulder. There is healed fracture deformity of ribs #4-6 on the right. There is soft tissue calcifications seen in the subacromion space. XR/XR shoulder RT min 2V IMPRESSION: Degenerative changes of right glenohumeral joint likely calcified bursitis
[2023-11-05 10:27] VITALS: BP 126/69; PULSE 91; RESP 16; TEMP 37.2; O2SAT 96; BMI 22.7
--- NOTE | 2023-11-05 15:16 | ECG_ITS ---
Test Reason : HYPERTENSION Blood Pressure : / mmHG Vent. Rate : 075 BPM Atrial Rate : 075 BPM P-R Int : 144 ms QRS Dur : 082 ms QT Int : 394 ms P-R-T Axes : 009 -21 058 degrees QTc Int : 439 ms Normal sinus rhythm Minimal voltage criteria for LVH, may be normal variant ( R in aVL ) Borderline ECG When compared with ECG of 05-SEP-2023 23:34, No significant change was found Referred By: Jazmín Juarez Electronically Signed By:ALBA VIGIL
--- NOTE | 2023-11-05 15:18 | ED.GENADULT ---
HPI - General Adult General Chief complaint: General Medical Stated complaint: Nausea, high BP, pain in arms Time Seen by Provider: 11/05/23 20:28 Source: patient and family Mode of arrival: ambulatory Limitations: no limitations History of Present Illness ED Provider: corey BEDOLLA narrative: Patient has been having pain in the left shoulder for some time got worse for last 2 days no history of trauma no fever no chills also noted patient had slightly high blood earlier today no chest pain no shortness of breath Related Data Home Medications ?Medication ?Instructions ?Recorded ?Confirmed aspirin 81 mg tablet,delayed 81 mg PO DAILY 12/11/22 07/29/23 release furosemide 20 mg tablet 20 mg PO DAILY 12/11/22 07/29/23 insulin aspart U-100 100 unit/mL 5 unit subcut TID 12/11/22 07/29/23 (3 mL) subcutaneous pen (Novolog FlexPen U-100 Insulin aspart) insulin glargine 100 unit/mL (3 10 unit subcut DAILY 12/11/22 07/29/23 mL) subcutaneous pen (Lantus Solostar U-100 Insulin) losartan 25 mg tablet 25 mg PO DAILY 12/11/22 07/29/23 dulaglutide 0.75 mg/0.5 mL mg subcut 01/22/23 07/29/23 subcutaneous pen injector (Trulicity) levothyroxine 25 mcg capsule 25 mcg PO DAILY 01/22/23 07/29/23 atorvastatin 40 mg tablet 40 mg PO DAILY 07/29/23 07/29/23 Previous Rx's ?Medication ?Instructions ?Recorded tramadol 50 mg tablet 50 mg PO BID PRN pain #20 tabs 11/05/23 Allergies Allergy/AdvReac Type Severity Reaction Status Date / Time No Known Allergies Allergy Verified 11/05/23 10:28 Review of Systems Review of Systems: Yes all other systems are reviewed and are negative PMFSH Past Medical History Medical History Nonproliferative diabetic retinopathy CHANEL (obstructive sleep apnea) Osteopenia Insulin dependent type 2 diabetes mellitus Hemiparesis affecting left side as late effect of cerebrovascular accident History of CVA (cerebrovascular accident) Hyperosmolar hyperglycemic state (HHS) Hyperlipidemia Hypertension CKD (chronic kidney disease), stage III Surgical History No pertinent past surgical history Social History Social History Household Members: Family and Children Housing: Apartment Do you presently have visiting nurse or other home services: Yes Alcohol intake: never Patient Tobacco Use Status: Never used Tobacco Advance Directives: No Advance Directives Information Provided: No service: No Physical Exam ED Vital Signs: Vital Signs - 24 hr 11/05/23 10:27 11/05/23 15:20 11/05/23 21:16 Temperature 98.9 F 97.4 F Pulse Rate 91 82 83 Respiratory Rate 16 16 18 Blood Pressure 126/69 140/53 H 133/54 L Pulse Oximetry 96 98 98 Oxygen Delivery Method Room Air Room Air Room Air BMI result Body Mass Index 22.7 Appearance: Alert. Oriented X3. No acute distress. ENT: Pharynx normal. Oral Mucosa moist Neck: Normal inspection. Neck supple. CVS: Normal heart rate and rhythm. Pulses normal. Respiratory: No respiratory distress. Equal air entry bilateral, no wheezing/rales/rhonchi Abdomen: Soft and nontender. Bowel sounds are present, Skin: Skin warm and dry. Normal skin color. Normal skin turgor. Extremities: No lower extremity edema. No calf tenderness right shoulder diffuse tenderness limited abduction because of pain no deformity neurovascular intact Neuro: Oriented X 3. Residual left-sided weakness Course Course Course Narrative: This is a rapid medical exam performed by Kayleigh Juarez NP: Additional HPI, ROS, PE not included below will be deferred to primary provider. Patient brought into triage office for reassessment at 15:19. Patient is a 73-year-old Puerto Rican speaking female presenting to the ED complaining of right shoulder and arm pain, difficulty making a fist since this morning. Daughter reports BP was 150 systolic at home. 140/53 at this time. Patient also felt dizzy this morning but denies dizziness now, was able to ambulate at home. Plan: ordered EKG, labs Medications Administered Discontinued Medications Generic Name Dose Route Start Last Admin Trade Name Freq PRN Reason Stop Dose Admin Tramadol HCl 50 mg 11/05/23 20:54 11/05/23 21:04 Tramadol Hcl 50 Mg Tablet PO 11/05/23 20:55 50 mg ONCE ONE Administration Medical Decision Making Medical Decision Making [facility] Narrative: Patient clinically with rotator cuff tendinitis of the right shoulder denies recent injury but x-ray showed calcified bursa. Will discharge patient home sling and pain med advised to follow with orthopedic Lab Data [facility] Lab Attestation statement: I reviewed the patient's lab results. 11/05/23 15:56 11/05/23 15:56 Labs: Lab Results 11/05/23 11/05/23 Range/Units 15:56 18:52 WBC 7.8 (4.8-10.8) X10*3/uL RBC 4.01 L (4.20-5.50) X10*6/uL Hgb 11.6 L (12.0-16.0) g/dl Hct 35.3 L (37.0-47.0) % MCV 88.0 (80.0-98.0) fL MCH 28.9 (27.0-33.0) pg MCHC 32.9 (31.0-35.0) g/dl RDW 15.6 (11.0-16.0) % Plt Count 164 (160-400) X10*3/uL MPV 11.4 (9.4-12.3) fL Immature Gran % (Auto) 0.3 (0.0-0.4) % Neut % (Auto) 60.0 (45-73) % Lymph % (Auto) 32.6 (20-40) % [place] % (Auto) 5.6 (2-11) % Eos % (Auto) 1.2 (0-4) % Baso % (Auto) 0.3 (0-2) % Lymph # (Auto) 2.5 (1.2-4.9) X10*3/uL [place] # (Auto) 0.4 (0.1-1.2) X10*3/uL Eos # (Auto) 0.1 (0.0-0.4) X10*3/uL Baso # (Auto) 0.0 (0.0-0.2) X10*3/uL Abs Immat Gran (auto) 0.02 (0.00-0.03) X10*3/uL Absolute Neuts (auto) 4.7 (2.0-8.3) x10*3/uL Absolute Nucleated RBC 0.000 (0.0-0.012) X10*3/uL Nucleated RBC % (auto) 0.0 (0.0-0.2) /100WBC PT 11.6 (11.1-13.3) SEC INR 1.0 (0.9-1.1) Sodium 143 (135-145) mmol/L Potassium 4.5 (3.3-5.1) mmol/L Chloride 107 (96-108) mmol/L Carbon Dioxide 29 (22-29) mmol/L Anion Gap 12 (12-20) BUN 47 H (9-16) mg/dL Creatinine 1.72 H (0.5-1.4) mg/dL Estim Creat Clear Calc 19.2 Estimated GFR 29 Random Glucose 194 H (60-115) mg/dL Calcium 10.4 H (8.4-10.2) mg/dL Total Bilirubin 0.3 (0.0-1.0) mg/dL AST 21 (5-31) U/L ALT 22 (0-31) U/L Alkaline Phosphatase 149 H (39-117) U/L Troponin I High Sens 25.3 H 26.9 H (<3.5-17.0) ng/L Total Protein 9.0 H (6.5-8.0) g/dL Albumin 4.2 (3.5-5.0) g/dL Independent Interpretation I performed an independent interpretation of an: EKG and Plain X-Ray Interpretation: Normal sinus rhythm heart rate 75 beats per minute LVH no acute STT wave changes no acute ischemia Radiology Impression Discussion of test interpretation with radiology: I have reviewed the radiologist's reading. Discharge Plan Discharge Clinical Impression: Rotator cuff arthropathy of right shoulder Patient Disposition: Home, Self-Care Instructions: Rotator Cuff Tendinitis (ED) Additional Instructions: Wear the sling for support Tramadol for severe pain Continue Tylenol Follow-up with orthopedics Prescriptions: New tramadol 50 mg tablet 50 mg PO BID PRN (Reason: pain) Qty: 20 0RF No Action aspirin 81 mg tablet,delayed release (DR/EC) 81 mg PO DAILY losartan 25 mg tablet 25 mg PO DAILY furosemide 20 mg tablet 20 mg PO DAILY insulin aspart U-100 [Novolog FlexPen U-100 Insulin] 100 unit/mL (3 mL) insulin pen 5 unit SUBCUT TID insulin glargine [Lantus Solostar U-100 Insulin] 100 unit/mL (3 mL) insulin pen 10 unit SUBCUT DAILY levothyroxine 25 mcg capsule 25 mcg PO DAILY Trulicity 0.75 mg/0.5 mL pen injector subcut atorvastatin 40 mg tablet 40 mg PO DAILY Referrals: Andrew Killian MD [Physician] - 2 weeks Interventions: ED Discharge Assessment Last Done: 11/05/23 21:16 Discharge Date/Time: 11/05/23 21:19 Print Language: Puerto Rican
[2023-11-05 15:20] VITALS: BP 140/53; PULSE 82; RESP 16; O2SAT 98
[2023-11-05 16:01] LABS: MANUAL DIFF FLAG NO
[2023-11-05 16:03] LABS: Basophils Percent Auto 0.3 % (0-2); Eosinophils Absolute Auto 0.1 X10*3/uL (0.0-0.4); Eosinophils Percent Auto 1.2 % (0-4); Hematocrit 35.3 % (37.0-47.0); Hemoglobin 11.6 g/dl (12.0-16.0); Imm Gran Abs Auto 0.02 X10*3/uL (0.00-0.03); Imm Gran Pct Auto 0.3 % (0.0-0.4); Lymphocytes Absolute Auto 2.5 X10*3/uL (1.2-4.9); Lymphocytes Percent Auto 32.6 % (20-40); Mean Corpuscular HGB Conc 32.9 g/dl (31.0-35.0); Mean Corpuscular Hemoglobin 28.9 pg (27.0-33.0); Mean Platelet Volume 11.4 fL (9.4-12.3); Monocytes Absolute Auto 0.4 X10*3/uL (0.1-1.2); Monocytes Percent Auto 5.6 % (2-11); Neutrophils Absolute Auto 4.7 x10*3/uL (2.0-8.3); Platelet Count 164 X10*3/uL (160-400); Red Blood Count 4.01 X10*6/uL (4.20-5.50); Red Cell Distribution Width 15.6 % (11.0-16.0); White Blood Count 7.8 X10*3/uL (4.8-10.8)
[2023-11-05 16:09] LABS: Prothrombin Time 11.6 SEC (11.1-13.3)
[2023-11-05 16:18] LABS: Alanine Aminotransferase 22 U/L (0-31); Albumin Level 4.2 g/dL (3.5-5.0); Alkaline Phosphatase 149 U/L (39-117); Anion Gap 12 (12-20); Aspartate Amino Transferase 21 U/L (5-31); Bilirubin Total 0.3 mg/dL (0.0-1.0); Blood Urea Nitrogen 47 mg/dL (9-16); Calcium 10.4 mg/dL (8.4-10.2); Carbon Dioxide 29 mmol/L (22-29); Chloride 107 mmol/L (96-108); Creatinine Clr Calc Pharmacy 19.2; Estimated Glomerular Filt Rate 29; Glucose Random 194 mg/dL (60-115); Potassium 4.5 mmol/L (3.3-5.1); Sodium 143 mmol/L (135-145)
[2023-11-05 16:25] LABS: Troponin-I High Sensitivity 25.3 ng/L (<3.5-17.0)
[2023-11-05 19:23] LABS: Troponin-I High Sensitivity 26.9 ng/L (<3.5-17.0)
[2023-11-05] MEDS: traMADoL HCL 50 MG TABLET PO (21:04)
[2023-11-05 21:16] VITALS: BP 133/54; PULSE 83; RESP 18; TEMP 36.3; O2SAT 98
== END 2023-11-05 21:19 | disposition home or self-care (01) ==
PROVIDERS: Registered Nurse Emergency; Emergency Provider Internal Medicine; PCP Student in an Organized Health Care Education/Training Program
DX: M12.811 Other specific arthropathies, not elsewhere classified, right shoulder (principal); M25.512 Pain in left shoulder; I12.9 Hypertensive chronic kidney disease with stage 1 through stage 4 chronic kidney disease, or unspecified chronic kidney disease; E11.22 Type 2 diabetes mellitus with diabetic chronic kidney disease; N18.30 Chronic kidney disease, stage 3 unspecified; Z79.4 Long term (current) use of insulin
CPT/HCPCS: 36415; 73030; 80053; 84484; 85025; 85610; 93005; 99283

== ENCOUNTER → 2023-11-05 15:16 | Outpatient (BNV) | payer OTHER, SELFPAY | PROVIDERS: Emergency Provider Internal Medicine; PCP Student in an Organized Health Care Education/Training Program; Visit Provider Internal Medicine | DX: I10 Essential (primary) hypertension (principal); R94.31 Abnormal electrocardiogram [ECG] [EKG] | CPT/HCPCS: 93010 ==

== ENCOUNTER 2024-07-29 09:54 | Outpatient (AMB) | payer OTHER, SELFPAY ==
[2024-07-29 10:06] VITALS: BP 114/52; PULSE 83; BMI 23.9
--- NOTE | 2024-07-29 10:06 | A.OFFVIS_ITS ---
Vital Signs 07/29/24 10:06 Height 4 ft 11 in Weight 118 lb 2.684 oz BMI 23.9 BP 114/52 L Blood Pressure Location Lt brachial Position Sitting Pulse 83 Pulse Source Monitor Intake Visit Reasons: 1 yr f/up Contact Lens Inspector Required: Yes Contact Lens Inspector Language: Television Reporter Name: voice tirado [id number] Housing Property Manager: Housing Property Manager Present Allergies No Known Allergies Allergy (Verified 07/29/24 10:09) Medication List - Last Reconciled 07/29/24 by Elizabeth Valencia NP-C aspirin 81 mg PO DAILY atorvastatin 40 mg PO DAILY dulaglutide (Trulicity) mg subcut furosemide 20 mg PO DAILY insulin aspart U-100 (Novolog FlexPen U-100 Insulin aspart) 5 units subcut TID insulin glargine (Lantus Solostar U-100 Insulin) 10 units subcut DAILY levothyroxine 25 mcg PO DAILY losartan 25 mg PO DAILY HPI HPI 1 yr f/up: Details: Eliza is a 89year-old female past medical history of hypertension, hyperlipidemia, diabetes, sleep apnea, CKD, prior junctional bradycardia in the setting of hyperkalemia and verapamil use who presents for follow-up. Today she states she has been feeling well since her last visit 07/29/2023. She has not had any issues with lightheadedness, presyncope, syncope, falls. She denies chest discomfort at rest or with activity. No shortness of breath, PND, orthopnea or edema. She does light physical activities around the house. No routine exercise. Takes all meds as directed. Granddaughter is present. COUNTS INCLUDE 234 BEDS AT THE [facility] Medical History Nonproliferative diabetic retinopathy CHANEL (obstructive sleep apnea) Osteopenia Insulin dependent type 2 diabetes mellitus Hemiparesis affecting left side as late effect of cerebrovascular accident History of CVA (cerebrovascular accident) Hyperosmolar hyperglycemic state (HHS) Hyperlipidemia Hypertension CKD (chronic kidney disease), stage III Surgical History No pertinent past surgical history Social History Household Members: Family and Children Housing: Apartment Do you presently have visiting nurse or other home services: Yes Alcohol intake: never Patient Tobacco Use Status: Never used Tobacco service: No Review of Systems Const All systems reviewed & are unremarkable except as noted in HPI and below ENT Denies dizziness Card Denies chest pain, Denies chest pain at rest, Denies chest pain with activity, Denies rapid heart rate, Denies pedal edema, Denies edema, Denies leg edema, Denies lightheadedness, Denies palpitations, Denies dyspnea, Denies dyspnea on exertion and Denies orthopnea Resp Denies cough, Denies dyspnea and Denies dyspnea on exertion GI Denies hematochezia and Denies change in stool character Musc Denies abnormal gait, Denies limited range of motion, Denies muscle cramps, Denies muscle weakness, Denies numbness, Denies radiating pain into limb, Denies stiffness and Denies tingling Neuro Denies abnormal gait, Denies dizziness, Denies numbness and Denies tingling Endo Denies palpitations Physical Exam Vital Signs: BMI result Body Mass Index 23.9 Const General: cooperative, healthy appearing, comfortable and no acute distress Orientation/consciousness: patient oriented x3 Neck Neck: Yes normal visual inspection and Yes no JVD Resp Effort & Inspection: normal respiratory effort Auscultation: clear to auscultation bilaterally, no crackles, no rales, no rhonc hi and no wheezes Cardio Jugular venous distension: no JVD Rate: regular rate Rhythm: regular rhythm Heart sounds: S1 normal heart sound present, S2 normal heart sound present, no murmurs and no rubs Neuro General: patient oriented x3 Extrem General: Yes normal to inspection and No no pedal edema Psych Appearance: grossly normal Mental Status: mental status grossly normal Speech and movement: Normal speech and movement present Office Procedures EKG Details: Today, read by me, Normal sinus rhythm, rate 83, QTc 441ms [id number], Complete Assessment & Plan Assessment & Plan (1) Bradycardia: Code(s): R00.1 - Bradycardia, unspecified Category: Medical Plan: November 2022 she was admitted to [facility] with DKA, hyperkalemia, junctional bradycardia. Her potassium was corrected and verapamil was stopped. Her bradycardia improved. Echocardiogram done 12/04/2022 showed EF 60-65%, no regional wall motion abnormalities, grade 1 diastolic dysfunction. She remains off all rate slowing agents. EKG done today showing normal sinus rhythm, rate 83. Her bradycardia was most likely an isolated event however No Holter monitoring has been done. Will check a Holter for completeness. If within normal limits cardiology follow-up will be as needed. Continue to avoid rate slowing medications on her. (2) Hypertension: Code(s): I10 - Essential (primary) hypertension Category: Medical Plan: Well controlled at present time. Would continue her current medications including losartan and Lasix. Plan Time spent on chart review, documentation, interview and assessment Orders: Orders ECG 3 day holter monitor Today R00.1 - Bradycardia, unspecified Coding Level of Care Code Est Pt Level 3 (85755) Complex EM visit Add On G2211 Diagnoses Bradycardia R00.1 Hypertension I10 CPT Codes EKG - CPT: 20805-[id number], Complete ([id number]) Time Spent (min) 24
--- OUTSIDE RECORDS SUMMARY | 2024-07-29 11:28 | XMS_ITS | Patient Health Record ---
Author Organization [facility] Address [address], [place] [id number] Care Team Providers Care Hand Turner Name Role Phone [facility] Care Provider Unavailable [facility] Unavailable [phone] Reason For Referral No Information Plan Of Treatment No Information Insurance Providers Payer Name Payer Address Payer Phone Subscriber Number Group Number Insured Name Patient Relationship to Insured Coverage Start Date Coverage End Date [place] Medicaid Standard [address] [place] [address] [id number] Eliza Ann Self - patient is the insured 3
== END 2024-07-29 10:38 | disposition home or self-care (01) ==
PROVIDERS: Visit Provider Nurse Practitioner Family
DX: R00.1 Bradycardia, unspecified (principal); I10 Essential (primary) hypertension
CPT/HCPCS: 93010; 99213; G2211

== ENCOUNTER → 2024-07-29 09:54 | Outpatient (BNVA) | payer OTHER, SELFPAY | PROVIDERS: Visit Provider Nurse Practitioner Family | DX: I12.9 Hypertensive chronic kidney disease with stage 1 through stage 4 chronic kidney disease, or unspecified chronic kidney disease (principal); E11.22 Type 2 diabetes mellitus with diabetic chronic kidney disease; N18.9 Chronic kidney disease, unspecified; R00.1 Bradycardia, unspecified; E78.5 Hyperlipidemia, unspecified | CPT/HCPCS: 93005; 99212 ==

== ENCOUNTER 2024-08-08 12:03 | Emergency (ER) | payer OTHER, SELFPAY ==
--- NOTE | 2024-08-08 | ECG_ITS ---
Test Reason : UPPER ABD PAIN Blood Pressure : */* mmHG Vent. Rate : 74 BPM Atrial Rate : 74 BPM P-R Int : 152 ms QRS Dur : 86 ms QT Int : 400 ms P-R-T Axes : 27 -18 56 degrees QTcB Int : 444 ms Normal sinus rhythm Normal ECG When compared with ECG of 05-Nov-2023 15:46, No significant change was found Referred By: Abdias Lama Electronically Signed By: Tam Vasquez
--- NOTE | ~2024-08-08 | CT_ITS ---
CLINICAL HISTORY: Diffuse abdominal tenderness CT abdomen and pelvis with IV contrast. COMPARISON: None FINDINGS: Minimal atelectasis along the lung bases. Small hiatal hernia. No focal hepatic lesion. Normal gallbladder. Normal spleen. Normal pancreas. Normal adrenal glands. Symmetric renal enhancement. No hydronephrosis. Normal appendix. Mild diffuse large bowel mucosal thickening. No bowel obstruction. No mesenteric or retroperitoneal lymphadenopathy. Moderate aortoiliac atherosclerotic vascular calcifications. Urinary bladder is unremarkable given degree of distention. No adnexal mass. Grade 1 anterolisthesis of L4 on L5, degenerative. Flowing marginal osteophytes along the lower thoracic spine. No acute fracture identified. IMPRESSION: 1. Diffuse large bowel mucosal thickening consistent with an infectious or inflammatory colitis. No bowel obstruction. This document has been electronically signed by: Isacc Pimentel MD on 08/08/2024 14:21:52
[2024-08-08 12:28] VITALS: BP 122/84; PULSE 78; RESP 16; TEMP 36.5; O2SAT 95; BMI 45.0
--- NOTE | 2024-08-08 12:32 | ED_ITS ---
HPI - Abdominal Pain General Chief Complaint: Abdominal Pain Stated Complaint: abd pain, diarrhea Time Seen by Provider: 08/08/24 12:20 Source: patient Limitations: no limitations History of Present Illness ED Provider: Abdias Lama DO HPI narrative: 72-year-old female with history of CKD, hypertension, hyperlipidemia, history of CVA with sequela left-sided hemiparesis, insulin-dependent type 2 diabetes, nonproliferative diabetic retinopathy, CHANEL noncompliant with CPAP, and osteopenia presents to the emergency department with daughter at bedside due to 4 days of generalized abdominal pain that worsens with eating as well as 3-4 episodes per day of nonbloody diarrhea. History obtained with the assistance of in-person infrastructure design engineer, Amy. History obtained from both patient and daughter we state that patient is Trulicity was increased 2 days prior to the start of her symptoms. She denies dysuria, urgency, frequency, fevers, chills, nausea, vomiting or similar symptoms in the past. No abdominal surgical history. No cough or sore throat. Related Data Home Medications ?Medication ?Instructions ?Recorded ?Confirmed aspirin 81 mg tablet,delayed 81 mg PO DAILY 12/11/22 07/29/24 release furosemide 20 mg tablet 20 mg PO DAILY 12/11/22 07/29/24 insulin aspart U-100 100 unit/mL 5 unit subcut TID 12/11/22 07/29/24 (3 mL) subcutaneous pen (Novolog FlexPen U-100 Insulin aspart) insulin glargine 100 unit/mL (3 10 unit subcut DAILY 12/11/22 07/29/24 mL) subcutaneous pen (Lantus Solostar U-100 Insulin) losartan 25 mg tablet 25 mg PO DAILY 12/11/22 07/29/24 dulaglutide 0.75 mg/0.5 mL mg subcut 01/22/23 07/29/24 subcutaneous pen injector (Trulicity) levothyroxine 25 mcg capsule 25 mcg PO DAILY 01/22/23 07/29/24 atorvastatin 40 mg tablet 40 mg PO DAILY 07/29/23 07/29/24 Allergies Allergy/AdvReac Type Severity Reaction Status Date / Time No Known Allergies Allergy Verified 08/08/24 12:28 Review of Systems Review of Systems Yes all other systems are reviewed and are negative PMFSH Past Medical History Medical History Nonproliferative diabetic retinopathy CHANEL (obstructive sleep apnea) Osteopenia Insulin dependent type 2 diabetes mellitus Hemiparesis affecting left side as late effect of cerebrovascular accident History of CVA (cerebrovascular accident) Hyperosmolar hyperglycemic state (HHS) Hyperlipidemia Hypertension CKD (chronic kidney disease), stage III Surgical History No pertinent past surgical history Social History Social History Household Members: Family and Children Housing: Apartment Do you presently have visiting nurse or other home services: Yes Alcohol intake: never Patient Tobacco Use Status: Never used Tobacco Smoked in Last 30 Days: No Use of substances other than those prescribed or required for medical reasons: No Advance Directives: Yes Advance Directives Information Provided: No Advance Directives on File: No Do you have a plan to hurt others: No Plan service: No Physical Exam ED Vital Signs: Vital Signs - 24 hr 08/08/24 12:28 08/08/24 15:01 08/08/24 15:21 Temperature 97.7 F 97.7 F 97.7 F Pulse Rate 78 70 70 Respiratory Rate 16 18 18 Blood Pressure 122/84 126/52 L 126/52 L Pulse Oximetry 95 98 98 Oxygen Delivery Method Room Air Room Air Room Air BMI result Body Mass Index 45.0 Constitutional: ?Alert, oriented, speaking in full sentences, smiling and laughing at times HEENT: ?Normocephalic, atraumatic. ?Moist mucous membranes Eyes: ?PERRL, EOMI Neck: ?Supple, nontender Chest: ?No chest wall tenderness Respiratory: ?Lungs clear to auscultation, no increased work of breathing Cardio: ?Regular rate and rhythm, no murmur, 2+ radial and DP pulses symmetrically GI: ?Soft, nondistended, nontender although the patient does have some guarding. Back: ?Normal range of motion, nontender, no CVA tenderness Skin: ?No rash, no lesions Neuro: ?Alert and oriented to person, place and time, moves all 4 extremities, no focal deficits Extremities: ?No swelling or tenderness, full range of motion Psych: ?Calm, alert and cooperative, appropriate behavior Medical Decision Making Medical Decision Making MDM Narrative: Patient presenting with abdominal pain and diarrhea over the last 4 days. She is otherwise well-appearing, in no acute pain distress during my evaluation and has unremarkable vital signs. Differential diagnosis includes viral enteritis, less likely small bowel obstruction as the patient is tolerating p.o. and has no vomiting, less likely surgical etiology such as appendicitis or cholecystitis and possible symptoms related to increase in dulaglutide which has these known effects. I do not suspect ACS, especially in the absence of chest pain or difficulty breathing. The patient does not clinically appear to be dehydrated but we will evaluate with blood work as well as evaluate for hypokalemia and other metabolic derangements. Patient has no clinical signs and symptoms consistent with DKA or HHS. Labs reviewed and show no leukocytosis, baseline mild anemia, baseline borderline thrombocytopenia, baseline CKD, unremarkable electrolytes, mild hyperglycemia at 129, mild chronic elevation of alkaline phosphatase at 135, mild elevation of troponin to 27 which is very similar to multiple previous levels, negative lipase. Negative respiratory swab. CT imaging shows evidence of colitis consistent with diarrhea. The patient is well-appearing, afebrile and I do not suspect bacterial colitis. I also do not suspect ischemic colitis at this time and her findings are consistent with increased dulaglutide. She does have continuous glucose monitoring at home and her provider has already adjusted her insulin regimen. I recommended to the patient and her daughter that she goes back to the previous dose of dulaglutide, continue a brat diet for the next couple of days and follow up with primary care provider within the next few days for readjustment in her diabetic regimen. Return precautions provided for any worsening conditions. I also instructed them to follow up regarding pain after eating as the patient may require initiation of proton pump inhibitor. She has no signs of this on my exam today. Admission/Observation Consideration of admission/observation: Escalation of care including admission/observation considered Lab Data 08/08/24 12:36 08/08/24 12:36 Labs: Lab Results 08/08/24 Range/Units 12:36 WBC 8.0 (4.8-10.8) X10*3/uL RBC 4.01 L (4.20-5.50) X10*6/uL Hgb 11.7 L (12.0-16.0) g/dl Hct 35.6 L (37.0-47.0) % MCV 88.8 (80.0-98.0) fL MCH 29.2 (27.0-33.0) pg MCHC 32.9 (31.0-35.0) g/dl RDW 14.0 (11.0-16.0) % Plt Count 151 L (160-400) X10*3/uL MPV 11.1 (9.4-12.3) fL Absolute Nucleated RBC 0.000 (0.0-0.012) X10*3/uL Nucleated RBC % (auto) 0.0 (0.0-0.2) /100WBC Neutrophils % (Manual) 62 (45-73) % Band Neutrophils % 0 L (3-5) % Lymphocytes % (Manual) 28 (20-40) % Monocytes % (Manual) 4 (2-11) % Eosinophils % (Manual) 5 H (0-4) % Basophils % (Manual) 1 (0-2) % Abs Neuts (Manual) 5.0 (2.0-8.3) X10*3/uL Lymphocytes # (Manual) 2.2 (1.2-4.9) X10*3/uL Monocytes # (Manual) 0.3 (0.1-1.2) X10*3/uL Eosinophils # (Manual) 0.4 (0.0-0.4) X10*3/uL Basophils # (Manual) 0.1 (0.0-0.2) X10*3/uL Platelet Estimate NORMAL (NORMAL) Large Platelets PRESENT Plt Morphology Comment NOTED RBC Morphology NORMAL Sodium 143 (135-145) mmol/L Potassium 4.3 (3.3-5.1) mmol/L Chloride 113 H (96-108) mmol/L Carbon Dioxide 22 (22-29) mmol/L Anion Gap 12 (12-20) BUN 36 H (9-16) mg/dL Creatinine 1.57 H (0.5-1.4) mg/dL Estim Creat Clear Calc 31.0 Estimated GFR 32 Random Glucose 129 H (60-115) mg/dL Calcium 9.4 D (8.4-10.2) mg/dL Magnesium 2.2 (1.6-2.6) mg/dL Total Bilirubin 0.2 (0.0-1.0) mg/dL Direct Bilirubin < 0.2 (0.0-0.5) mg/dL AST 36 H (5-31) U/L ALT 26 (0-31) U/L Alkaline Phosphatase 135 H (39-117) U/L Troponin I High Sens 27.6 H (<3.5-17.0) ng/L Total Protein 8.5 H (6.5-8.0) g/dL Albumin 3.8 (3.5-5.0) g/dL Lipase 14 (8-78) U/L Influenza Type A (PCR) NEGATIVE (Negative) Influenza Type B (PCR) NEGATIVE (Negative) RSV RNA Qual (PCR) NEGATIVE (Negative) SARS-CoV-2 RNA (RT-PCR) NEGATIVE (Negative) Medications Administered Discontinued Medications Generic Name Dose Route Start Last Admin Trade Name Freq PRN Reason Stop Dose Admin Iohexol 100 ml 08/08/24 13:57 08/08/24 13:57 Iohexol 350 Mg/Ml 100 Ml Infus..Btl IV 08/08/24 13:58 85 ml ONCE ONE Administration Discharge Plan Discharge Clinical Impression: Colitis Patient Disposition: Home, Self-Care Instructions: Acute Diarrhea (ED), Colitis (ED) Additional Instructions: Le evaluaron por dolor abdominal y diarrea. Luci an?lisis y la tomograf?a computarizada fueron alentadores y hay hallazgos de inflamaci?n del intestino grueso. Todo esto se debe probablemente al Trulicity. Le recomendamos que vuelva a la dosis que tomaba anteriormente, 0,75 mg. Tambi?n le recomendamos que siga comiendo a diario y que albina los pr?ximos dos d?as aumente la ingesta de arroz y tostadas para ayudar con la diarrea, rodolfo tambi?n equilibre esto con el control de la glucosa. Vuelva a visitar a talamantes m?dico de cabecera para merlene nueva evaluaci?n esta semana y nuevos ajustes de talamantes medicaci?n para la diabetes. Vuelva aqu? si tiene fiebre de m?s de 100 grados F, empeoramiento del dolor abdominal, empeoramiento de la confusi?n, empeoramiento de la diarrea o cualquier otro cambio subha o preocupaci?n. Prescriptions: No Action aspirin 81 mg tablet,delayed release (DR/EC) 81 mg PO DAILY losartan 25 mg tablet 25 mg PO DAILY furosemide 20 mg tablet 20 mg PO DAILY insulin aspart U-100 [Novolog FlexPen U-100 Insulin] 100 unit/mL (3 mL) insulin pen 5 unit SUBCUT TID insulin glargine [Lantus Solostar U-100 Insulin] 100 unit/mL (3 mL) insulin pen 10 unit SUBCUT DAILY levothyroxine 25 mcg capsule 25 mcg PO DAILY Trulicity 0.75 mg/0.5 mL pen injector subcut atorvastatin 40 mg tablet 40 mg PO DAILY Interventions: ED Discharge Assessment Last Done: 08/08/24 15:21 Discharge Date/Time: 08/08/24 15:22 Print Language: Icelandic
[2024-08-08 12:42] LABS: Baso%MD 0.4 %; Eos%MD 8.1 %; Hematocrit 35.6 % (37.0-47.0); Hemoglobin 11.7 g/dl (12.0-16.0); IG%MD 0.2 %; Lymph%MD 26.4 %; Mean Corpuscular HGB Conc 32.9 g/dl (31.0-35.0); Mean Corpuscular Hemoglobin 29.2 pg (27.0-33.0); Mean Corpuscular Volume 88.8 fL (80.0-98.0); Mean Platelet Volume 11.1 fL (9.4-12.3); Mono%MD 6.6 %; Neut%MD 58.3 %; Platelet Count 151 X10*3/uL (160-400); Red Blood Count 4.01 X10*6/uL (4.20-5.50)
[2024-08-08 13:05] LABS: Alanine Aminotransferase 26 U/L (0-31); Albumin Level 3.8 g/dL (3.5-5.0); Alkaline Phosphatase 135 U/L (39-117); Anion Gap 12 (12-20); Aspartate Amino Transferase 36 U/L (5-31); Bilirubin Direct < 0.2 mg/dL (0.0-0.5); Bilirubin Total 0.2 mg/dL (0.0-1.0); Blood Urea Nitrogen 36 mg/dL (9-16); Calcium 9.4 mg/dL (8.4-10.2); Carbon Dioxide 22 mmol/L (22-29); Chloride 113 mmol/L (96-108); Estimated Glomerular Filt Rate 32; Glucose Random 129 mg/dL (60-115); Lipase 14 U/L (8-78); Magnesium 2.2 mg/dL (1.6-2.6); Potassium 4.3 mmol/L (3.3-5.1); Sodium 143 mmol/L (135-145); Total Protein 8.5 g/dL (6.5-8.0)
[2024-08-08 13:08] LABS: Troponin-I High Sensitivity 27.6 ng/L (<3.5-17.0)
[2024-08-08 13:22] LABS: Influenza A PCR NEGATIVE (Negative); Influenza B PCR NEGATIVE (Negative); Resp Syncy Virus RNA Qual PCR NEGATIVE (Negative); SARS COV2 PCR INHOUSE NEGATIVE (Negative)
[2024-08-08] MEDS: iohexoL 350 MG/ML 100 ML INFUS..BTL IV (13:57)
[2024-08-08 14:08] LABS: Band Neutrophils Percent 0 % (3-5); Basophils Abs Manual 0.1 X10*3/uL (0.0-0.2); Basophils Percent Manual 1 % (0-2); Eosinophils Absolute Manual 0.4 X10*3/uL (0.0-0.4); Eosinophils Percent Manual 5 % (0-4); Large Platelet PRESENT; Lymphocytes Absolute Manual 2.2 X10*3/uL (1.2-4.9); Lymphocytes Percent Manual 28 % (20-40); Monocytes Absolute Manual 0.3 X10*3/uL (0.1-1.2); Monocytes Percent Manual 4 % (2-11); Neutrophils Percent Manual 62 % (45-73); Platelet Estimate NORMAL (NORMAL); Platelet Morphology Comment NOTED; RBC Morphology NORMAL
[2024-08-08 15:01] VITALS: BP 126/52; PULSE 70; RESP 18; TEMP 36.5; O2SAT 98
[2024-08-08 15:21] VITALS: BP 126/52; PULSE 70; RESP 18; TEMP 36.5; O2SAT 98
== END 2024-08-08 15:22 | disposition home or self-care (01) ==
PROVIDERS: Emergency Provider Emergency Medicine
DX: K52.9 Noninfective gastroenteritis and colitis, unspecified (principal); Z03.818 Encounter for observation for suspected exposure to other biological agents ruled out; R10.84 Generalized abdominal pain; E11.9 Type 2 diabetes mellitus without complications; I10 Essential (primary) hypertension; Z79.4 Long term (current) use of insulin; Z79.899 Other long term (current) drug therapy
CPT/HCPCS: 0241U; 74177; 80053; 82248; 83690; 83735; 84484; 85007; 85027; 93005; 99284; 99285; Q9967

== ENCOUNTER → 2024-08-08 12:40 | Outpatient (BNV) | payer OTHER, SELFPAY | PROVIDERS: Emergency Provider Emergency Medicine; Visit Provider Internal Medicine Cardiovascular Disease | DX: R10.10 Upper abdominal pain, unspecified (principal) | CPT/HCPCS: 93010 ==

== ENCOUNTER → 2024-08-08 12:59 | Outpatient (BNV) | payer OTHER, SELFPAY | PROVIDERS: Emergency Provider Emergency Medicine; Visit Provider Radiology Diagnostic Radiology | DX: R10.9 Unspecified abdominal pain (principal) | CPT/HCPCS: 74177 ==

== ENCOUNTER 2024-08-19 17:39 | Emergency (ER) | payer OTHER, SELFPAY ==
--- NOTE | ~2024-08-19 | XR_ITS ---
CLINICAL HISTORY: Lt knee pain 4 view left knee Comparison: None Findings: No fractures or dislocations. No significant arthritic change or erosions. No joint effusion. No radiopaque foreign body. There is regional arterial calcification IMPRESSION: 1. No acute findings. This document has been electronically signed by: Home Ruano MD on 08/19/2024 18:54:28
[2024-08-19 17:47] VITALS: BP 147/56; PULSE 80; RESP 16; TEMP 36.1; O2SAT 95; BMI 23.2
--- NOTE | 2024-08-19 17:49 | ED.GENADULT ---
HPI - General Adult General Chief complaint: Extremity Injury, Lower Stated complaint: left knee pain Time Seen by Provider: 08/20/24 01:00 Related Data Home Medications ?Medication ?Instructions ?Recorded ?Confirmed aspirin 81 mg tablet,delayed 81 mg PO DAILY 12/11/22 07/29/24 release furosemide 20 mg tablet 20 mg PO DAILY 12/11/22 07/29/24 insulin aspart U-100 100 unit/mL 5 unit subcut TID 12/11/22 07/29/24 (3 mL) subcutaneous pen (Novolog FlexPen U-100 Insulin aspart) insulin glargine 100 unit/mL (3 10 unit subcut DAILY 12/11/22 07/29/24 mL) subcutaneous pen (Lantus Solostar U-100 Insulin) losartan 25 mg tablet 25 mg PO DAILY 12/11/22 07/29/24 dulaglutide 0.75 mg/0.5 mL mg subcut 01/22/23 07/29/24 subcutaneous pen injector (Trulicity) levothyroxine 25 mcg capsule 25 mcg PO DAILY 01/22/23 07/29/24 atorvastatin 40 mg tablet 40 mg PO DAILY 07/29/23 07/29/24 Allergies Allergy/AdvReac Type Severity Reaction Status Date / Time No Known Allergies Allergy Verified 08/19/24 17:47 PMFSH Past Medical History Medical History Nonproliferative diabetic retinopathy CHANEL (obstructive sleep apnea) Osteopenia Insulin dependent type 2 diabetes mellitus Hemiparesis affecting left side as late effect of cerebrovascular accident History of CVA (cerebrovascular accident) Hyperosmolar hyperglycemic state (HHS) Hyperlipidemia Hypertension CKD (chronic kidney disease), stage III Surgical History No pertinent past surgical history Social History Social History Household Members: Family and Children Housing: Apartment Do you presently have visiting nurse or other home services: Yes Alcohol intake: never Patient Tobacco Use Status: Never used Tobacco Smoked in Last 30 Days: No Use of substances other than those prescribed or required for medical reasons: No Advance Directives: No Advance Directives Information Provided: Yes Do you have a plan to hurt others: No Plan service: No Physical Exam ED Vital Signs: BMI result Body Mass Index 23.2 Course Course Course Narrative: This is an RME done by LESTER Caceres: Additional HPI, ROS, PE not included below will be deferred to primary provider. 73-year-old female history of hypertension, hyperlipidemia, diabetes presents with left knee pain for the past 4 days. Pain is severe, constant, worse with ambulation and weight-bearing and better at rest. Atraumatic in nature. Denies numbness and tingling. Appearance: Alert.? Oriented X3.? No acute cardiopulmonary distress distress.? Head: Normocephalic, atraumatic, no step-offs or deformities ENT: Pharynx normal.??External ears normal, TMs normal bilaterally and EAC's normal. No pain with manipulation of external ears bilaterally. No mastoid tenderness. Neck: Normal inspection.? Neck supple.? CVS: Pulses normal.? Respiratory: No respiratory distress.? Abdomen: Soft and nontender.? Skin: ? Normal skin color. Extremities: 5/5 strength to bilateral upper and lower extremities + Ambulating w/ steady gait Neuro: Oriented X 3.? No motor deficit.? No sensory deficit. Medications Administered Discontinued Medications Generic Name Dose Route Start Last Admin Trade Name Freq PRN Reason Stop Dose Admin Sodium Chloride 1,000 mls @ 999 mls/hr 08/20/24 01:22 08/20/24 02:41 Ns IV 08/20/24 02:22 Infused .Q1H1M ONE Infusion Sodium Zirconium Cyclosilicate 10 gm 08/20/24 01:20 08/20/24 01:35 Sodium Zirconium Cyclosilicate 10 Gm Powd.Pack PO 08/20/24 01:21 10 gm ONCE ONE Administration Medical Decision Making Lab Data 08/19/24 18:38 08/19/24 18:38 Labs: Lab Results 08/19/24 Range/Units 18:38 WBC 7.2 (4.8-10.8) X10*3/uL RBC 3.96 L (4.20-5.50) X10*6/uL Hgb 11.6 L (12.0-16.0) g/dl Hct 35.5 L (37.0-47.0) % MCV 89.6 (80.0-98.0) fL MCH 29.3 (27.0-33.0) pg MCHC 32.7 (31.0-35.0) g/dl RDW 14.6 (11.0-16.0) % Plt Count 166 (160-400) X10*3/uL MPV 11.9 (9.4-12.3) fL Immature Gran % (Auto) 1.1 H (0.0-0.4) % Neut % (Auto) 54.1 (45-73) % Lymph % (Auto) 30.3 (20-40) % [place] % (Auto) 6.7 (2-11) % Eos % (Auto) 7.1 H (0-4) % Baso % (Auto) 0.7 (0-2) % Lymph # (Auto) 2.2 (1.2-4.9) X10*3/uL [place] # (Auto) 0.5 (0.1-1.2) X10*3/uL Eos # (Auto) 0.5 H (0.0-0.4) X10*3/uL Baso # (Auto) 0.1 (0.0-0.2) X10*3/uL Abs Immat Gran (auto) 0.08 H (0.00-0.03) X10*3/uL Absolute Neuts (auto) 3.9 (2.0-8.3) x10*3/uL Absolute Nucleated RBC 0.020 H (0.0-0.012) X10*3/uL Nucleated RBC % (auto) 0.3 H (0.0-0.2) /100WBC ESR 69 H (0-20) MM/HR Sodium 146 H (135-145) mmol/L Potassium 5.8 H D (3.3-5.1) mmol/L Chloride 111 H (96-108) mmol/L Carbon Dioxide 28 (22-29) mmol/L Anion Gap 13 (12-20) BUN 43 H (9-16) mg/dL Creatinine 1.84 H (0.5-1.4) mg/dL Estim Creat Clear Calc 19.5 Estimated GFR 27 Random Glucose 214 H (60-115) mg/dL Calcium 9.8 (8.4-10.2) mg/dL Total Bilirubin 0.2 (0.0-1.0) mg/dL AST 57 H (5-31) U/L ALT 49 H (0-31) U/L Alkaline Phosphatase 187 H (39-117) U/L C-Reactive Protein 0.37 (< or = 0.50) mg/dL Total Protein 8.1 H (6.5-8.0) g/dL Albumin 3.9 (3.5-5.0) g/dL Discharge Plan Discharge Clinical Impression: Acute hyperkalemia, Chronic kidney disease Patient Disposition: Home, Self-Care Instructions: Chronic Kidney Disease (ED), Potassium Content of Foods List (ED), Hyperkalemia (ED) Additional Instructions: Do not eat food containing high potassium like bananas/orange juice Drink plenty of fluids Follow up with your PCP and kidney specialist Prescriptions: No Action aspirin 81 mg tablet,delayed release (DR/EC) 81 mg PO DAILY losartan 25 mg tablet 25 mg PO DAILY furosemide 20 mg tablet 20 mg PO DAILY insulin aspart U-100 [Novolog FlexPen U-100 Insulin] 100 unit/mL (3 mL) insulin pen 5 unit SUBCUT TID insulin glargine [Lantus Solostar U-100 Insulin] 100 unit/mL (3 mL) insulin pen 10 unit SUBCUT DAILY levothyroxine 25 mcg capsule 25 mcg PO DAILY Trulicity 0.75 mg/0.5 mL pen injector subcut atorvastatin 40 mg tablet 40 mg PO DAILY Interventions: ED Discharge Assessment Last Done: 08/20/24 02:58 Discharge Date/Time: 08/20/24 03:01 Print Language: Bengali
[2024-08-19 18:42] LABS: MANUAL DIFF FLAG NO
[2024-08-19 18:58] LABS: Alanine Aminotransferase 49 U/L (0-31); Albumin Level 3.9 g/dL (3.5-5.0); Alkaline Phosphatase 187 U/L (39-117); Anion Gap 13 (12-20); Aspartate Amino Transferase 57 U/L (5-31); Bilirubin Total 0.2 mg/dL (0.0-1.0); Blood Urea Nitrogen 43 mg/dL (9-16); C Reactive Protein 0.37 mg/dL (< or = 0.50); Calcium 9.8 mg/dL (8.4-10.2); Carbon Dioxide 28 mmol/L (22-29); Chloride 111 mmol/L (96-108); Creatinine Clr Calc Pharmacy 19.5; Estimated Glomerular Filt Rate 27; Glucose Random 214 mg/dL (60-115); Potassium 5.8 mmol/L (3.3-5.1); Sodium 146 mmol/L (135-145); Total Protein 8.1 g/dL (6.5-8.0)
[2024-08-19 19:09] LABS: Basophils Absolute Auto 0.1 X10*3/uL (0.0-0.2); Basophils Percent Auto 0.7 % (0-2); Eosinophils Absolute Auto 0.5 X10*3/uL (0.0-0.4); Eosinophils Percent Auto 7.1 % (0-4); Hematocrit 35.5 % (37.0-47.0); Hemoglobin 11.6 g/dl (12.0-16.0); Imm Gran Abs Auto 0.08 X10*3/uL (0.00-0.03); Imm Gran Pct Auto 1.1 % (0.0-0.4); Lymphocytes Absolute Auto 2.2 X10*3/uL (1.2-4.9); Lymphocytes Percent Auto 30.3 % (20-40); Mean Corpuscular HGB Conc 32.7 g/dl (31.0-35.0); Mean Corpuscular Hemoglobin 29.3 pg (27.0-33.0); Mean Corpuscular Volume 89.6 fL (80.0-98.0); Mean Platelet Volume 11.9 fL (9.4-12.3); Monocytes Absolute Auto 0.5 X10*3/uL (0.1-1.2); Monocytes Percent Auto 6.7 % (2-11); NRBC Pct Auto 0.3 /100WBC (0.0-0.2); Neutrophils Absolute Auto 3.9 x10*3/uL (2.0-8.3); Neutrophils Percent Auto 54.1 % (45-73); Platelet Count 166 X10*3/uL (160-400); Red Blood Count 3.96 X10*6/uL (4.20-5.50); Red Cell Distribution Width 14.6 % (11.0-16.0); White Blood Count 7.2 X10*3/uL (4.8-10.8)
[2024-08-19 19:42] LABS: Erythrocyte Sedimentation Rate 69 MM/HR (0-20)
--- NOTE | 2024-08-19 23:03 | MHC.EDTECH ---
this tech assumed care of this pt @ 1225 from Bryan ([employer] technical lead senior developer)
[2024-08-19 23:07] VITALS: BP 134/59; PULSE 80; RESP 14; TEMP 36.9; O2SAT 97
--- NOTE | 2024-08-20 01:22 | ECG_ITS ---
Test Reason : HYPERKALEMIA Blood Pressure : */* mmHG Vent. Rate : 70 BPM Atrial Rate : 70 BPM P-R Int : 136 ms QRS Dur : 72 ms QT Int : 416 ms P-R-T Axes : 62 -18 62 degrees QTcB Int : 449 ms Normal sinus rhythm Minimal voltage criteria for LVH, may be normal variant ( R in aVL ) Borderline ECG When compared with ECG of 08-Aug-2024 12:40, No significant change was found Referred By: Valeriano Carlson Electronically Signed By: DRAKE JARA MD
[2024-08-20] MEDS: Sodium Zirconium Cyclosilicate 10 GM POWD.PACK PO (01:35)
[2024-08-20] MEDS: 0.9 % Sodium Chloride 1,000 ML 999 ML IV (01:35)
[2024-08-20 02:25] VITALS: BP 120/65; PULSE 82; RESP 17; TEMP 36.9; O2SAT 96
[2024-08-20 02:58] VITALS: BP 120/65; PULSE 82; RESP 17; TEMP 36.9; O2SAT 96
--- NOTE | 2024-09-20 02:16 | ED_ITS ---
HPI - General Adult General Chief complaint: Extremity Injury, Lower Stated complaint: left knee pain Time Seen by Provider: 08/20/24 01:00 Source: patient Mode of arrival: ambulatory Limitations: no limitations History of Present Illness ED Provider: HPI narrative: 73-year-old female history of hypertension, hyperlipidemia, diabetes presents with left knee pain for the past 4 days. Pain is severe, constant, worse with ambulation and weight-bearing and better at rest. Atraumatic in nature. Denies numbness and tingling. No significant swelling noted patient has had x-ray done of the left knee prior to my evaluation which was also normal without any effusion Related Data Home Medications ?Medication ?Instructions ?Recorded ?Confirmed aspirin 81 mg tablet,delayed 81 mg PO DAILY 12/11/22 07/29/24 release furosemide 20 mg tablet 20 mg PO DAILY 12/11/22 07/29/24 insulin aspart U-100 100 unit/mL 5 unit subcut TID 12/11/22 07/29/24 (3 mL) subcutaneous pen (Novolog FlexPen U-100 Insulin aspart) insulin glargine 100 unit/mL (3 10 unit subcut DAILY 12/11/22 07/29/24 mL) subcutaneous pen (Lantus Solostar U-100 Insulin) losartan 25 mg tablet 25 mg PO DAILY 12/11/22 07/29/24 dulaglutide 0.75 mg/0.5 mL mg subcut 01/22/23 07/29/24 subcutaneous pen injector (Trulicity) levothyroxine 25 mcg capsule 25 mcg PO DAILY 01/22/23 07/29/24 atorvastatin 40 mg tablet 40 mg PO DAILY 07/29/23 07/29/24 Allergies Allergy/AdvReac Type Severity Reaction Status Date / Time No Known Allergies Allergy Verified 08/19/24 17:47 Review of Systems 2 Review of Systems: Yes all other systems are reviewed and are negative PMFSH Past Medical History Medical History Nonproliferative diabetic retinopathy CHANEL (obstructive sleep apnea) Osteopenia Insulin dependent type 2 diabetes mellitus Hemiparesis affecting left side as late effect of cerebrovascular accident History of CVA (cerebrovascular accident) Hyperosmolar hyperglycemic state (HHS) Hyperlipidemia Hypertension CKD (chronic kidney disease), stage III Surgical History No pertinent past surgical history Social History Social History Household Members: Family and Children Housing: Apartment Do you presently have visiting nurse or other home services: Yes Alcohol intake: never Patient Tobacco Use Status: Never used Tobacco Smoked in Last 30 Days: No Use of substances other than those prescribed or required for medical reasons: No Advance Directives: No Advance Directives Information Provided: Yes Do you have a plan to hurt others: No Plan service: No Physical Exam ED Vital Signs: BMI result Body Mass Index 23.2 Appearance: Alert. Oriented X3. No acute distress. ENT: Pharynx normal. Oral Mucosa moist Neck: Normal inspection. Neck supple. CVS: Normal heart rate and rhythm. Pulses normal. Respiratory: No respiratory distress. Equal air entry bilateral, no wheezing/rales/rhonchi Abdomen: Soft and nontender. Bowel sounds are present, no mass palpable, no CVA tenderness Skin: Skin warm and dry. Normal skin color. Normal skin turgor. Extremities: No lower extremity edema. No calf tenderness left knee with diffuse tenderness no effusion good range of movement Neuro: Oriented X 3. No motor deficit. No sensory deficit.No cerebellar signs , cranial nerves II-XII intact Medications Administered Discontinued Medications Generic Name Dose Route Start Last Admin Trade Name Freq PRN Reason Stop Dose Admin Sodium Chloride 1,000 mls @ 999 mls/hr 08/20/24 01:22 08/20/24 02:41 Ns IV 08/20/24 02:22 Infused .Q1H1M ONE Infusion Sodium Zirconium Cyclosilicate 10 gm 08/20/24 01:20 08/20/24 01:35 Sodium Zirconium Cyclosilicate 10 Gm Powd.Pack PO 08/20/24 01:21 10 gm ONCE ONE Administration Medical Decision Making Medical Decision Making MDM Narrative: Patient with arthritic pain in the left knee without any significant effusion noted to have slight potassium elevation of 5.8 advised not to eat bananas and oranges patient been eating more bananas. No EKG findings of hyperkalemia patient was given a dose of Lokelma in the ER advised to follow up with crutch maker and PCP Differential Diagnosis Differential Diagnoses: The differential diagnosis associated with the presentation includes Lab Data [facility] Lab Attestation statement: I reviewed the patient's lab results. 08/19/24 18:38 08/19/24 18:38 Labs: Lab Results 08/19/24 Range/Units 18:38 WBC 7.2 (4.8-10.8) X10*3/uL RBC 3.96 L (4.20-5.50) X10*6/uL Hgb 11.6 L (12.0-16.0) g/dl Hct 35.5 L (37.0-47.0) % MCV 89.6 (80.0-98.0) fL MCH 29.3 (27.0-33.0) pg MCHC 32.7 (31.0-35.0) g/dl RDW 14.6 (11.0-16.0) % Plt Count 166 (160-400) X10*3/uL MPV 11.9 (9.4-12.3) fL Immature Gran % (Auto) 1.1 H (0.0-0.4) % Neut % (Auto) 54.1 (45-73) % Lymph % (Auto) 30.3 (20-40) % [place] % (Auto) 6.7 (2-11) % Eos % (Auto) 7.1 H (0-4) % Baso % (Auto) 0.7 (0-2) % Lymph # (Auto) 2.2 (1.2-4.9) X10*3/uL [place] # (Auto) 0.5 (0.1-1.2) X10*3/uL Eos # (Auto) 0.5 H (0.0-0.4) X10*3/uL Baso # (Auto) 0.1 (0.0-0.2) X10*3/uL Abs Immat Gran (auto) 0.08 H (0.00-0.03) X10*3/uL Absolute Neuts (auto) 3.9 (2.0-8.3) x10*3/uL Absolute Nucleated RBC 0.020 H (0.0-0.012) X10*3/uL Nucleated RBC % (auto) 0.3 H (0.0-0.2) /100WBC ESR 69 H (0-20) MM/HR Sodium 146 H (135-145) mmol/L Potassium 5.8 H D (3.3-5.1) mmol/L Chloride 111 H (96-108) mmol/L Carbon Dioxide 28 (22-29) mmol/L Anion Gap 13 (12-20) BUN 43 H (9-16) mg/dL Creatinine 1.84 H (0.5-1.4) mg/dL Estim Creat Clear Calc 19.5 Estimated GFR 27 Random Glucose 214 H (60-115) mg/dL Calcium 9.8 (8.4-10.2) mg/dL Total Bilirubin 0.2 (0.0-1.0) mg/dL AST 57 H (5-31) U/L ALT 49 H (0-31) U/L Alkaline Phosphatase 187 H (39-117) U/L C-Reactive Protein 0.37 (< or = 0.50) mg/dL Total Protein 8.1 H (6.5-8.0) g/dL Albumin 3.9 (3.5-5.0) g/dL Independent Interpretation I performed an independent interpretation of an: EKG and Plain X-Ray Interpretation: Normal sinus rhythm with heart rate 70 beats per minute LVH no acute STT wave changes no acute ischemia Radiology Impression Discussion of test interpretation with radiology: I have reviewed the radiologist's reading. Radiologist Impression: No acute finding Discharge Plan Discharge Clinical Impression: Acute hyperkalemia, Chronic kidney disease Patient Disposition: Home, Self-Care Instructions: Chronic Kidney Disease (ED), Potassium Content of Foods List (ED), Hyperkalemia (ED) Additional Instructions: Do not eat food containing high potassium like bananas/orange juice Drink plenty of fluids Follow up with your PCP and kidney specialist Prescriptions: No Action aspirin 81 mg tablet,delayed release (DR/EC) 81 mg PO DAILY losartan 25 mg tablet 25 mg PO DAILY furosemide 20 mg tablet 20 mg PO DAILY insulin aspart U-100 [Novolog FlexPen U-100 Insulin] 100 unit/mL (3 mL) insulin pen 5 unit SUBCUT TID insulin glargine [Lantus Solostar U-100 Insulin] 100 unit/mL (3 mL) insulin pen 10 unit SUBCUT DAILY levothyroxine 25 mcg capsule 25 mcg PO DAILY Trulicity 0.75 mg/0.5 mL pen injector subcut atorvastatin 40 mg tablet 40 mg PO DAILY Interventions: ED Discharge Assessment Last Done: 08/20/24 02:58 Discharge Date/Time: 08/20/24 03:01 Print Language: Sinhala
== END 2024-08-20 03:01 | disposition home or self-care (01) ==
PROVIDERS: Physician Assistant; Emergency Provider Internal Medicine
DX: E87.5 Hyperkalemia (principal); E11.22 Type 2 diabetes mellitus with diabetic chronic kidney disease; I12.9 Hypertensive chronic kidney disease with stage 1 through stage 4 chronic kidney disease, or unspecified chronic kidney disease; N18.30 Chronic kidney disease, stage 3 unspecified; M25.562 Pain in left knee; Z86.73 Personal history of transient ischemic attack (TIA), and cerebral infarction without residual deficits; Z79.82 Long term (current) use of aspirin; Z79.4 Long term (current) use of insulin; Z79.85 Long-term (current) use of injectable non-insulin antidiabetic drugs; Z79.02 Long term (current) use of antithrombotics/antiplatelets; Z79.899 Other long term (current) drug therapy
CPT/HCPCS: 36415; 73564; 80053; 85025; 85652; 86140; 93005; 96360; 99284; 99285

== ENCOUNTER → 2024-08-19 17:49 | Outpatient (BNV) | payer OTHER, SELFPAY | PROVIDERS: Visit Provider Specialist | DX: M25.562 Pain in left knee (principal) | CPT/HCPCS: 73564 ==

== ENCOUNTER → 2024-08-20 01:22 | Outpatient (BNV) | payer OTHER, SELFPAY | PROVIDERS: Emergency Provider Internal Medicine; Visit Provider Internal Medicine Cardiovascular Disease | DX: E87.5 Hyperkalemia (principal) | CPT/HCPCS: 93010 ==

== ENCOUNTER 2024-12-22 21:55 | Emergency (ER) | payer OTHER, SELFPAY ==
--- NOTE | ~2024-12-22 | CT_ITS ---
CLINICAL HISTORY: fall with + head strike CT Head WO Contrast COMPARISON: None provided FINDINGS: No acute intracranial hemorrhage. No evidence of acute infarction. Diffuse cortical volume loss. Nonspecific white matter hypodensities, most commonly associated with chronic microangiopathic changes. Chronic appearing right occipital, right parietal, left frontal encephalomalacia. No mass-effect or midline shift. No hydrocephalus. Visualized orbits are normal. Clear paranasal sinuses. Clear mastoid air cells. No acute fracture. Unremarkable soft tissues. IMPRESSION: No acute intracranial findings. Nonemergent/incidental findings in the report. This document has been electronically signed by: Michael Quezada MD on 12/23/2024 00:06:06
--- NOTE | ~2024-12-22 | XR_ITS ---
CLINICAL HISTORY: fall Left shoulder, 2 views COMPARISON: None provided FINDINGS: No acute fracture. No dislocation. Degenerative changes in the acromioclavicular joint and humeral head. Unremarkable soft tissues. IMPRESSION: No acute findings. This document has been electronically signed by: Michael Quezada MD on 12/23/2024 00:00:34
--- NOTE | ~2024-12-22 | XR_ITS ---
CLINICAL HISTORY: fall Left elbow, 3 views COMPARISON: None provided FINDINGS: No acute fracture. No dislocation. No effusion. Unremarkable soft tissues. IMPRESSION: No acute findings. This document has been electronically signed by: Michael Quezada MD on 12/23/2024 00:00:24
[2024-12-22 22:10] VITALS: BP 147/66; PULSE 74; RESP 16; TEMP 36.7; O2SAT 96; BMI 25.1
--- NOTE | 2024-12-22 22:23 | ECG_ITS ---
Test Reason : FALL Blood Pressure : */* mmHG Vent. Rate : 72 BPM Atrial Rate : 72 BPM P-R Int : 158 ms QRS Dur : 94 ms QT Int : 418 ms P-R-T Axes : 47 -22 67 degrees QTcB Int : 457 ms Normal sinus rhythm Minimal voltage criteria for LVH, may be normal variant ( R in aVL ) Borderline ECG When compared with ECG of 20-Aug-2024 01:41, No significant change was found Referred By: Generic ED Physician Electronically Signed By: DRAKE JARA MD
[2024-12-22 22:43] LABS: MANUAL DIFF FLAG NO
[2024-12-22 22:44] LABS: Hematocrit 34.9 % (37.0-47.0); Hemoglobin 11.6 g/dl (12.0-16.0); Imm Gran Abs Auto 0.01 X10*3/uL (0.00-0.03); Imm Gran Pct Auto 0.1 % (0.0-0.4); Lymphocytes Absolute Auto 2.8 X10*3/uL (1.2-4.9); Mean Corpuscular HGB Conc 33.2 g/dl (31.0-35.0); Mean Corpuscular Hemoglobin 29.0 pg (27.0-33.0); Mean Corpuscular Volume 87.3 fL (80.0-98.0); NRBC Abs Auto 0.000 X10*3/uL (0.0-0.012); NRBC Pct Auto 0.0 /100WBC (0.0-0.2); Platelet Count 147 X10*3/uL (160-400); Red Blood Count 4.00 X10*6/uL (4.20-5.50); White Blood Count 7.0 X10*3/uL (4.8-10.8)
[2024-12-22 22:57] LABS: Alanine Aminotransferase 40 U/L (0-31); Albumin Level 4.2 g/dL (3.5-5.0); Alkaline Phosphatase 173 U/L (39-117); Anion Gap 14 (12-20); Aspartate Amino Transferase 47 U/L (5-31); Blood Urea Nitrogen 51 mg/dL (9-16); Calcium 9.4 mg/dL (8.4-10.2); Carbon Dioxide 27 mmol/L (22-29); Chloride 107 mmol/L (96-108); Creatinine Clr Calc Pharmacy 16.9; Estimated Glomerular Filt Rate 23; Potassium 5.3 mmol/L (3.3-5.1); Sodium 143 mmol/L (135-145); Total Protein 8.4 g/dL (6.5-8.0)
[2024-12-22 23:04] LABS: Troponin-I High Sensitivity 26.4 ng/L (<3.5-17.0)
--- NOTE | 2024-12-23 01:07 | ED_ITS ---
HPI - Fall General Chief Complaint: Fall Stated Complaint: fell, consistent laugh then went blank Time Seen by Provider: 12/23/24 00:40 Limitations: no limitations History of Present Illness ED Provider: Harshil Bower PA-C HPI Narrative: 74 year old female diabetes, hypertension, chronic kidney disease, hyperlipidemia present to the ED accompanied by her daughter after a fall at home. Daughter states they were watching a funny movie and went to get ready for bed. While laughing about the movie, the patient fell over onto her left side striking her head. Denies LOC. Reports pain of the left shoulder and elbow. Denies vision change, headache, dizziness, and N/V. Daughter reports the patient has left sided deficits from a prior stroke.? Related Data Home Medications ?Medication ?Instructions ?Recorded ?Confirmed aspirin 81 mg tablet,delayed 81 mg PO DAILY 12/11/22 0 07/29/24 release furosemide 20 mg tablet 20 mg PO DAILY 12/11/2211/17 insulin aspart U-100 100 unit/mL 5 unit subcut TID 07/29/24 (3 mL) subcutaneous pen (Novolog FlexPen U-100 Insulin aspart) insulin glargine 100 unit/mL (3 10 unit subcut DAILY 0 12/11/22 07/29/24 mL) subcutaneous pen (Lantus Solostar U-100 Insulin) losartan 25 mg tablet 25 mg PO DAILY 12/11/2211/17 dulaglutide 0.75 mg/0.5 mL mg subcut 01/22/23 07/29/24 subcutaneous pen injector (Trulicity) levothyroxine 25 mcg capsule 25 mcg PO DAILY 01/22/23 07/29/24 atorvastatin 40 mg tablet 40 mg PO DAILY 07/29/2311/17 Allergies Allergy/AdvReac Type Severity Reaction Status Date / Time No Known Allergies Allergy Verified 12/22/24 22:10 Review of Systems 2 Review of Systems: Yes all other systems are reviewed and are negative Constitutional: Constitutional: Denies no additional constitutional complaints, Denies fatigue, Denies fever(s) and Denies headache(s) ENT: Denies dizziness, Denies headache(s) and Denies neck pain Cardiovascular: Cardiovascular: Denies chest pain and Denies dyspnea Respiratory: Respiratory: Denies dyspnea Gastrointestinal: Gastrointestinal: Denies abdominal pain, Denies nausea and Denies vomiting Musculoskeletal: Musculoskeletal: Denies back pain, Reports arthralgias, Denies joint swelling, Denies neck pain, Denies numbness, Denies radiating pain into limb and Denies tingling Neurologic: Denies dizziness, Denies headache(s), Denies numbness and Denies tingling Endocrine: Endocrine: Denies fatigue [facility] Past Medical History Attestation statement: The following information was validated with the patient. Medical History Nonproliferative diabetic retinopathy CHANEL (obstructive sleep apnea) Osteopenia Insulin dependent type 2 diabetes mellitus Hemiparesis affecting left side as late effect of cerebrovascular accident History of CVA (cerebrovascular accident) Hyperosmolar hyperglycemic state (HHS) Hyperlipidemia Hypertension CKD (chronic kidney disease), stage III Surgical History No pertinent past surgical history Social History Social History Household Members: Family and Children Housing: Apartment Do you presently have visiting nurse or other home services: Yes Alcohol intake: never Patient Tobacco Use Status: Never used Tobacco Advance Directives: No Advance Directives Information Provided: Yes service: No Physical Exam 2 Vital Signs: Vital Signs: Last Vital Signs Temp 98.0 F 12/23/24 01:29 Pulse 74 12/23/24 01:29 Resp 16 12/23/24 01:29 BP 147/66 H 12/23/24 01:29 Pulse Ox 96 12/23/24 01:29 O2 Del Method Room Air 12/23/24 01:29 BMI result Body Mass Index 25.1 Const: Other: Alert well-appearing, no sign of head trauma on exam Orientation/consciousness: patient oriented x3 Resp: Effort & Inspection: normal respiratory effort Cardio: Other: Normal peripheral perfusion Skin: Other: Warm dry no rash Neuro: General: patient oriented x3, gait normal, no focal motor deficits and CN's II-XI intact bilaterally Extrem: Other: Full range of motion of the left shoulder and elbow without deformity Psych: Other: Laughing, smiling Medical Decision Making Medical Decision Making MDM Narrative: 74 year old female with a history of diabetes, hypertension, chronic kidney disease, hyperlipidemia who present to the ED accompanied by her daughter after a fall at home. Daughter states they were watching a funny movie and went to get ready for bed. While laughing about the movie, the patient fell over onto her left side striking her head. Denies LOC. Reports pain of the left shoulder and elbow. Denies vision change, headache, dizziness, and N/V. Daughter reports the patient has left sided deficits from a prior stroke.? Problem: Age History: Per patient and her daughter I have considered the following differential diagnoses: Intracranial hemorrhage, fracture, dislocation, Plan: Screening labs and imaging of the head and shoulder and elbow were obtained from triage, no acute injury I have independently reviewed the following tests: Labs: No leukocytosis, not anemic, kidney function at baseline, X-ray left elbow: FINDINGS: No acute fracture. No dislocation. No effusion. Unremarkable soft tissues. IMPRESSION: No acute findings. X-ray left shoulder: FINDINGS: No acute fracture. No dislocation. Degenerative changes in the acromioclavicular joint and humeral head. Unremarkable soft tissues. IMPRESSION: No acute findings. CT head:IMPRESSION: No acute intracranial findings. Nonemergent/incidental findings in the report. Lab Data 12/22/24 22:38 12/22/24 22:38 Labs: Lab Results 12/22/24 Range/Units 22:38 WBC 7.0 (4.8-10.8) X10*3/uL RBC 4.00 L (4.20-5.50) X10*6/uL Hgb 11.6 L (12.0-16.0) g/dl Hct 34.9 L (37.0-47.0) % MCV 87.3 (80.0-98.0) fL MCH 29.0 (27.0-33.0) pg MCHC 33.2 (31.0-35.0) g/dl RDW 14.4 (11.0-16.0) % Plt Count 147 L (160-400) X10*3/uL MPV 10.9 (9.4-12.3) fL Immature Gran % (Auto) 0.1 (0.0-0.4) % Neut % (Auto) 45.2 (45-73) % Lymph % (Auto) 40.0 (20-40) % [place] % (Auto) 8.3 (2-11) % Eos % (Auto) 6.0 H (0-4) % Baso % (Auto) 0.4 (0-2) % Lymph # (Auto) 2.8 (1.2-4.9) X10*3/uL [place] # (Auto) 0.6 (0.1-1.2) X10*3/uL Eos # (Auto) 0.4 (0.0-0.4) X10*3/uL Baso # (Auto) 0.0 (0.0-0.2) X10*3/uL Abs Immat Gran (auto) 0.01 (0.00-0.03) X10*3/uL Absolute Neuts (auto) 3.2 (2.0-8.3) x10*3/uL Absolute Nucleated RBC 0.000 (0.0-0.012) X10*3/uL Nucleated RBC % (auto) 0.0 (0.0-0.2) /100WBC Sodium 143 (135-145) mmol/L Potassium 5.3 H (3.3-5.1) mmol/L Chloride 107 (96-108) mmol/L Carbon Dioxide 27 (22-29) mmol/L Anion Gap 14 (12-20) BUN 51 H (9-16) mg/dL Creatinine 2.06 H (0.5-1.4) mg/dL Estim Creat Clear Calc 16.9 Estimated GFR 23 Random Glucose 144 H (60-115) mg/dL Calcium 9.4 (8.4-10.2) mg/dL Total Bilirubin 0.2 (0.0-1.0) mg/dL AST 47 H (5-31) U/L ALT 40 H (0-31) U/L Alkaline Phosphatase 173 H (39-117) U/L Troponin I High Sens 26.4 H (<3.5-17.0) ng/L Total Protein 8.4 H (6.5-8.0) g/dL Albumin 4.2 (3.5-5.0) g/dL Discharge Plan Discharge Clinical Impression: Contusion of left shoulder Patient Disposition: Home, Self-Care Instructions: Contusion in Adults (ED) Additional Instructions: X-rays of the shoulder in the elbow were negative for acute injury, the CT scan of the brain was normal as well. You had no lab abnormalities. Follow up with your primary care provider as needed. Prescriptions: No Action aspirin 81 mg tablet,delayed release (DR/EC) 81 mg PO DAILY losartan 25 mg tablet 25 mg PO DAILY furosemide 20 mg tablet 20 mg PO DAILY insulin aspart U-100 [Novolog FlexPen U-100 Insulin] 100 unit/mL (3 mL) insulin pen 5 unit SUBCUT TID insulin glargine [Lantus Solostar U-100 Insulin] 100 unit/mL (3 mL) insulin pen 10 unit SUBCUT DAILY levothyroxine 25 mcg capsule 25 mcg PO DAILY Trulicity 0.75 mg/0.5 mL pen injector subcut atorvastatin 40 mg tablet 40 mg PO DAILY Interventions: ED Discharge Assessment Last Done: 12/23/24 01:29 Discharge Date/Time: 12/23/24 01:34 Print Language: Upper Sorbian
[2024-12-23 01:29] VITALS: BP 147/66; PULSE 74; RESP 16; TEMP 36.7; O2SAT 96
== END 2024-12-23 01:34 | disposition home or self-care (01) ==
PROVIDERS: Emergency Provider Emergency Medicine
DX: S40.012A Contusion of left shoulder, initial encounter (principal); S09.90XA Unspecified injury of head, initial encounter; M25.512 Pain in left shoulder; M25.522 Pain in left elbow; R51.9 Headache, unspecified; R94.31 Abnormal electrocardiogram [ECG] [EKG]; X58.XXXA Exposure to other specified factors, initial encounter; Y93.9 Activity, unspecified; Y92.9 Unspecified place or not applicable; Y99.8 Other external cause status
CPT/HCPCS: 36415; 70450; 73030; 73080; 80053; 84484; 85025; 93005; 99283; 99284

== ENCOUNTER → 2024-12-22 22:23 | Outpatient (BNV) | payer OTHER, SELFPAY | PROVIDERS: Emergency Provider Emergency Medicine; Visit Provider Internal Medicine Cardiovascular Disease | DX: Z13.6 Encounter for screening for cardiovascular disorders (principal) | CPT/HCPCS: 93010 ==

== ENCOUNTER → 2024-12-22 22:25 | Outpatient (BNV) | payer OTHER, SELFPAY | PROVIDERS: Visit Provider Radiology Diagnostic Radiology | DX: S09.90XA Unspecified injury of head, initial encounter (principal); M25.512 Pain in left shoulder; M25.522 Pain in left elbow | CPT/HCPCS: 70450; 73030; 73080 ==